=== PATIENT | female | born 1940 | race Caucasian/White ===

== ENCOUNTER 2024-11-08 14:55 | Outpatient (OUT) | payer MEDICARE, SELFPAY ==
--- OUTSIDE RECORDS SUMMARY | 2024-10-30 13:45 | XMS_ITS | Encounter Summary ---
Author Organization [facility] Address [address] [place] [address] Care Team Providers Care Haunted History Tour Guide Name Role Phone Mallory Briceño GENETICS NURSE Unavailable Justin Becerra MD Unavailable [phone] Unallocated, Noms Provider Primary Care Provi venecia Reason for Visit * Reason Comments Pain Encounter Details Date Type Department Care Team (Late st Contact Info) Description 10/30/2024 1:45 PM EDT Office Visit [facility] [address] [facility] [address] [place] [phone] Clint King PA [address] [place] [address] Left shoulder strain, initial encounter (Primary Dx) Social History Tobacco Use Types Packs/Day Years Used Date Smoking Tobacco: Former Cigarettes 1 74 0 02/22/1959 - 02/22/2005 Passive Smoke Exposure: Yes Smokeless Tobacco: Never Tobacco Cessation:Counseling Given: Not Answered Alcohol Use Standard Drinks/Week Comments Never 0 (1 standard drink = 0.6 oz pur e alcohol) Comments Unknown Sex and Gender Information Value Date Recorded Sex Assigned at Not on file Legal Sex Female 6:54 PM EDT Gender Identity Not on file Sexual Orientation Not on file documented as of this encounter Last Filed Vital Signs Vital Sign Reading Time Taken Comments Blood Pressure - - Pulse - - Temperature - - Respiratory Rate - - Oxygen Saturation - - Inhaled Oxygen Concentration - - Weight 56.2 kg (124 lb) 10/30/2024 1:56 PM EDT Height 149.9 cm (4' 11 ) 10/30/2024 1:56 PM EDT Body Mass Index 25.04 10/30/2024 1:56 PM EDT documented in this encounter Patient Instructions * Patient Instructions* NATIVIDAD Armendariz - 10/30/2024 1:45 PM EDT Caution on assisting patient with position change while at [facility] due to strain of the shoulder. Cold pack 20 minutes several times a day and before bedtime we will be helpful. Follow-up with Dr. Loco Pardo MD of [place] for status post Lt hip surgery as scheduled tomorrow and mention images completed of the Left shoulder in our office today. Tylenol for discomfort and follow up as needed with this office. documented in this encounter Progress Notes * NATIVIDAD Armendariz - 10/30/2024 1:45 PM EDT GENERAL HISTORY AND PHYSICAL: NAME: Alexsandra Ryoal : 1940 HISTORY OF PRESENT ILLNESS: Alexsandra Royal is an 83 y.o. female is here for orthopedic evaluation left shoulder pain and concerns of dislocation. She had fallen and was seen at [facility] and immediately was noted to have a left Hip/femur fracture. At the time there was no significant complaint of shoulder problems. Patient was transferred and cared for under the direction of Dr. Loco Pardo and received IM nail for her fracture care. She is here today with her she was brought here by transportation from [facility]. is upset because she was imaged while at the [facility] and the nurse said that the shoulder was dislocated. Images reviewed which were copied on a standard piece of paper which did not appear to demonstrate dislocation. She is here for repeat images and exam of the shoulder. Patient has an appointment with Dr. Pardo tomorrow in [place] for her hip. Patient has had some discomfort with being moved from [id number] due to the shoulder while in the [facility] which led to the evaluation and concerns of dislocation. She actually in the wheelchair today is able to remove her sling and lift her arm up above her head without any difficulty, prior to exam. PAST MEDICAL HISTORY: Past Medical History: Diagnosis Date Acromioclavicular separation ALS (amyotrophic lateral sclerosis) ([facility]) Ankle sprain Arterial atherosclerosis Arthritis COPD (chronic obstructive pulmonary disease) ([facility]) Coronary artery disease CTS (carpal tunnel syndrome) Dislocation, shoulder Fracture of hip ([facility]) Fracture, femur ([facility]) GERD (gastroesophageal reflux disease) Hyperlipidemia Hypertension Lumbosacral disc disease Myocardial infarction ([facility]) Neuropathy Numbness Occlusion and stenosis of bilateral carotid arteries Osteoporosis PAD (peripheral artery disease) Peripheral neuropathy Pulmonary hypertension ([facility]) PAST SURGICAL HISTORY: Past Surgical History: Procedure Laterality Date APPENDECTOMY 1940 CEREBRAL ANGIOGRAM COLONOSCOPY 11/25/2015 CT ANGIOGRAM NECK 04/13/2012 CT ANGIOGRAM NECK FEMUR FRACTURE SURGERY HYSTERECTOMY 1958 KNEE ARTHROPLASTY SOCIAL HISTORY: Social History Occupational History Not on file Tobacco Use Smoking status: Former Current packs/day: 0.00 Average packs/day: 1 pack/day for 74.0 years (76.5 ttl pk-yrs) Types: Cigarettes Start date: 02/22/1959 Quit date: 02/22/2005 Years since quittin.6 Passive exposure: Yes Smokeless tobacco: Never Substance and Sexual Activity Alcohol use: Never Drug use: Never Sexual activity: Not Currently Partners: Male control/protection: None ALLERGIES: No Known Allergies MEDICATIONS: Current Outpatient Medications Medication Instructions acetaminophen (TYLENOL) 500 mg, Every 6 hours PRN albuterol (2.5 MG/3ML) 0.083% nebulizer solution allopurinol (ZYLOPRIM) 300 mg, Daily RT amLODIPine (Norvasc) 5 MG tablet aspirin 81 MG EC tablet atorvastatin (Lipitor) 40 MG tablet bisacodyl (Dulcolax) 10 MG suppository Insert into the rectum bisacodyl (FLEET BISACODYL) 10 mg, Once Calcium Carbonate (CALCIUM 500 PO) Take by mouth DULoxetine (CYMBALTA) 30 mg, 2 times daily Fluticasone-Salmeterol 250-50 MCG/ACT aerosol powder Inhale Lidocaine 4 % patch Apply externally magnesium hydroxide (Milk of Magnesia) 400 MG/5ML suspension Nightly metoprolol succinate XL (Toprol-XL) 25 MG 24 hr tablet Take by mouth Do not crush or chew. oxybutynin (Ditropan) 5 MG tablet oxygen (O2) gas sennosides (Senokot) 8.6 MG tablet 1 tablet, Daily VITAMIN D PO Take by mouth Vitamin D, Ergocalciferol, 17445 units capsule Take by mouth REVIEW OF SYSTEMS: Review of Systems General: Denies appetite or significant weight change. Denies fever, chills or night sweats. Denies lightheadedness. ENT: Denies dry mouth, sore throat or swollen glands. Denies difficulty swallowing. Denies ear pain. Respiratory: Denies chest pain, SOB, cough or wheezing. Denies asthma or pneumonia symptoms. Cardiovascular: Denies CP or palpitations. No syncope or dyspnea on exertion. Gastrointestinal: Denies nausea or vomiting. Denies heartburn or abdominal pain. Denies diarrhea. Genitourinary: Denies frequent or painful urination. Musculoskeletal: See HPI for comments. Integumentary: Denies rash, lesion or skin infection. Neurologic: Denies dizziness, headache or seizure history. Vitals: Body mass index is 25.04 kg/m??. PHYSICAL EXAM: Physical Exam Patient can actively raise her left shoulder to 135 degrees forward flexion and hold it in this position. Passively we can extend beyond this without much discomfort. She has no ecchymosis about the shoulder no significant joint swelling. She is able to abduct it to 80 degrees and has internal rotation to the lower lumbar region and external rotation from neutral of 65 degrees. She has some mild subacromial crepitus and some tenderness with cross-arm activity and global weakness of the rotator cuff. Her deltoid is intact with good sensation. XR shoulder 2+ views left Imaging Result: AP Grashey and scapular Y-view as well as axillary taken in the office today demonstrating no acutefracture or evidence of dislocation. AC joint arthritic findings noted. Orders Placed This Encounter Procedures XR shoulder 2+ views left Reason for exam:: pain XR shoulder 2+ views left Imaging Result: AP Grashey and scapular Y-view as well as axillary taken in the office today demonstrating no acute fracture or evidence of dislocation. AC joint arthritic findings noted. ASSESSMENT: Left shoulder strain, initial encounter PLAN: Caution on assisting patient with position change while at [facility] due to strain of the shoulder. Cold pack 20 minutes several times a day and before bedtime we will be helpful. Follow-up with Dr. Loco Pardo MD of [place] for status post Lt hip surgery as scheduled tomorrow and mention images completed of the Left shoulder in our office today. Tylenol for discomfort and follow up as needed with this office. NATIVIDAD Armendariz documented in this encounter Plan of Treatment Not on file documented as of this encounter Procedures Procedure Name Priority Date/Time Associated Diagnosis Comments XR SHOULDER 2+ VIEWS LEFT Routine 10/30/2024 2:34 PM EDT Left shoulder strain, initial encounter documented in this encounter Results * XR shoulder 2+ views left (10/30/2024 2:34 PM EDT) Anatomical Region Laterality Modality Upper Extremities, Shoulder Left Radi ographic Imaging Narrative 10/30/2024 2:59 PM EDT Imaging Result: AP Grashey and scapular Y-view as well as axillary taken in the office today demonstrating no acute fracture or evidence of dislocation. AC joint arthritic findings noted. us Clint HENSON IMG XR PROCEDURES Final Result documented in this encounter Visit Diagnoses Diagnosis Left shoulder strain, initial encounter- Primary documented in this encounter Care Teams Haunted History Tour Guide Relationship Specialty Start Date End Date Unallocated, Noms Provider, [address] [place] [id number] PCP - General Family Medicine 10/30/24 Mallory Briceño NP Nurse Practitioner Family Medicine 12/17/23 Justin Becerra MD Referring Physician Neurology 02/01/24 documented as of this encounter
--- OUTSIDE RECORDS SUMMARY | 2024-10-30 14:35 | XMS_ITS | Encounter Summary ---
Author Organization [facility] Address [address] [place] [address] Care Team Providers Care Junior Bookkeeper Name Role Phone KeyannaNunuMallory Gadiel AQUARIUM SPECIALIST Unavailable [phone] Justin Becerra MD Unavailable [phone] Unallocated, Noms Provider Primary Care Provi venecia Encounter Details Date Type Department Care Team (Late st Contact Info) Description 10/30/2024 2:35 PM EDT Ancillary Procedure [facility] [address] [facility] [place] [phone] Social History Tobacco Use Types Packs/Day Years Used Date Smoking Tobacco: Former Cigarettes 1 74 0 02/22/1959 - 02/22/2005 Passive Smoke Exposure: Yes Smokeless Tobacco: Never Alcohol Use Standard Drinks/Week Comments Never 0 (1 standard drink = 0.6 oz pur e alcohol) Comments Unknown Sex and Gender Information Value Date Recorded Sex Assigned at Not on file Legal Sex Female 6:54 PM EDT Gender Identity Not on file Sexual Orientation Not on file documented as of this encounter Plan of Treatment Not on [...] of dislocation. AC joint arthritic findings noted. Clint HENSON IMG XR PROCEDURES Final Result documented in this encounter Visit Diagnoses Not on filedocumented in this encounter Care Teams Junior Bookkeeper Relationship Specialty Start Date End Date Unallocated, Noms MD [address] [place] [address] PCP - General Family Medicine 10/30/24 Mallory Briceño NP Nurse Practitioner Family Medicine 12/17/23 Justin Becerra MD Referring Physician Neurology 02/01/24 documented as of this encounter
--- OUTSIDE RECORDS SUMMARY | 2024-10-31 09:40 | XMS_ITS | Encounter Summary ---
Author Organization [facility] Address [address] [place] [address] Care Team Providers Care Cuff Setter Lockstitch Name Role Phone Nunu Briceño CNP Primary Care Provider [phone] Reason for Referral * Therapy (Routine) - Pending Review Specialty Diagnoses / Procedures Referred By Contcarmita t Referred To Contact Physical Therapy Diagnoses Traumatic closed trochanteric fracture of femur with minimal displacement, left, initial encounter ([facility]) Procedures OR OFFICE/OUTPATIENT [facility] 60 MINUTES Loco Pardo MD [address] [place] [address] Phone: tel: fax: Referral ID Status Reason Start Date Expiration Date Visits Requested Visits Authorized [id number] Pending Review Evaluation and Treat 10/31/2024 10/31/2025 1 1 Reason for Visit * Reason Comments Follow-up Pain Post-op Encounter Details Date Type Department Care Team (Late st Contact Info) Description 10/31/2024 9:40 AM EDT Office Visit [facility] [address] [place] [address] [place] [phone] Loco Pardo MD [address] [place] [address] Closed displaced intertrochanteric fracture of left femur with routine healing, subsequent encounter (Primary Dx) Social History Tobacco Use Types Packs/Day Years Used Date Smoking Tobacco: Former Cigarettes Smokeless Tobacco: Never Tobacco Cessation:Counseling Given: Not Answered Alcohol Use Standard Drinks/Week Comments Never 0 (1 standard drink = 0.6 oz pur e alcohol) [facility] Utilities Answer Date Recorded In the past 12 months has th e electric, gas, oil, or water company threatened to shut off services in your home? No 10/13/2024 Humiliation, Afraid, Rape, and Kick questionnair e Answer Date Recorded Within the last year, have y ou been afraid of your partner or ex-partner? No 10/13/2024 Within the last year, have y ou been humiliated or emotionally abused in other ways by your partner or ex-partner? No Within the last year, have y ou been kicked, hit, slapped, or otherwise physically hurt by your partner or ex-partner? No 10/13/2024 Within the last year, have y ou been raped or forced to have any kind of sexual activity by your partner or ex-partner? No 10/13/2024 Social Connection and Isolat ion Panel [NHANES] Answer Date Recorded In a typical week, how many times do you talk on the phone with family, friends, or neighbors? More than three times a week 10/13/2024 How often do you get togethe r with friends or relatives? More than three times a week 10/13/2024 How often do you attend [facility] or gnosticism services? More than 4 times per year 10/13/2024 Do you belong to any clubs o r organizations such as zoroastrian groups, unions, fraternal or athletic groups, or school groups? No 10/13/2024 How often do you attend meet ings of the clubs or organizations you belong to? Never 10/13/2024 Are you , , di vorced, , never , or living with a partner? 10/13/2024 AUDIT-C Answer Date Recorded Q1: How often do you have a drink containing alcohol? Never 10/13/2024 Q2: How many drinks containi ng alcohol do you have on a typical day when you are drinking? Patient does not drink Q3: How often do you have si x or more drinks on one occasion? Never 10/13/2024 Overall Financial Resource Strain (CARDIA) Answe r Date Recorded How hard is it for you to pa y for the very basics like food, housing, medical care, and heating? Not hard at all 10/13/2024 PHQ-2 Answer Date Recorded Patient Health Questionnaire-2 Score 0 10/31/2024 [facility] Occupat ional Health - Occupational Stress Questionnaire Answer Date Recorded Do you feel stress - tense, restless, nervous, or anxious, or unable to sleep at night because your mind is troubled all the time - these days? Not at all 10/13/2024 Transportation Answer Date Recorded In the past 12 months, has l ack of transportation kept you from medical appointments or from getting medications? No 09/23 In the past 12 months, has l ack of transportation kept you from meetings, work, or from getting things needed for daily living? No 10/13/2024 Housing Stability Vital Sign Answer Dalton e Recorded In the last 12 months, was t here a time when you were not able to pay the mortgage or rent on time? No 10/13/2024 In the past 12 months, how m any times have you moved where you were living? 0 10/13/2024 At any time in the past 12 m [facility], were you homeless or living in a halfway (including now)? No 10/13/2024 Hunger Vital Sign Answer Date Recorded Within the past 12 months, y ou worried that your food would run out before you got the money to buy more. Never true 10/14/19 25 Within the past 12 months, t he food you bought just didn't last and you didn't have money to get more. Never true 10/13/2024 Comments Unknown Sex and Gender Information Value Date Recorded Sex Assigned at Female 10/13/2024 3:24 AM EDT Legal Sex Female 10:14 PM EDT Gender Identity Female 10/13/2024 3:24 AM EDT Sexual Orientation Choose not to disclose 2024 3:24 AM EDT documented as of this encounter Last Filed Vital Signs Vital Sign Reading Time Taken Comments Blood Pressure - - Pulse - - Temperature - - Respiratory Rate - - Oxygen Saturation - - Inhaled Oxygen Concentration - - Weight 49 kg (108 lb) 10/31/2024 9:56 AM EDT Height 157.5 cm (5' 2 ) 10/31/2024 9:56 AM EDT Body Mass Index 19.75 10/31/2024 9:56 AM EDT documented in this encounter Functional Status documented as of this encounter Progress Notes * Loco Pardo MD - 10/31/2024 9:40 AM EDT Images from the original note were not included. Orthopedic Surgery 10/13/2024 Insertion, Intramedullary Zachary, Femur, Antegrade - Left Alexsandra Royal comes in for a post-operative visit after having a left Hip fracture done on 10/13/2024. Today she is doing well and has no unexpected complaints. she has not done much in the way of therapy because there was concern that she might have broken, or dislocated, her left shoulder. She said that the therapist would not begin ambulating her until they got an okay from us today. Physical Exam: The incision site is healing well. There is no erythema, drainage or signs of infection. Tenderness is mild and localized to the surgical site. Sensation is present to light touch. Range of motion is appropriate for this time. Assessment: Alexsandra Royal is a 83 y.o. year old female with a left hip fracture treated with intramedullary nail fixation Plan: her gigi were removed today in the clinic. I looked back at old x-rays that we had from her hospitalization and there is no evidence of any injury to the left shoulder as far as a fracture or dislocation. There is a good subacromial space so I do not think she has any type of massive rotator cuff injury. An x-ray was repeated by her primary care doctor yesterday and I can see the report that says no bony abnormalities in the left shoulder. We will give her a prescription for therapy stating she can do activities as tolerated with the left arm and to work on progressive ambulation. I would like to see her back in 4 weeks with a repeat x-ray of the left hip. documented in this encounter Miscellaneous Notes * Telephone Encounter - Celeste Holder MA - 10/31/2024 9:40 AM EDT Sent to [facility] documented in this encounter Plan of Treatment Upcoming Encounters Date Type Department Care Team (Late st Contact Info) Description 12/05/2024 10:20 AM EDT Follow-Up [facility] [address] [place] [address] [place] [phone] Loco Pardo MD [address] [place] [address] 12/13/2024 1:00 PM EDT Office Visit [facility] [address] [facility] [place] [phone] Arsalan Ramos MD [address] [place] [address] Scheduled Referrals Name Type Priority Associated Diagnoses Orde r Schedule Ambulatory referral to Physical Therapy Outpatient Referral Routine Closed displaced intertrochanteric fracture of left femur with routine healing, subsequent encounter Expected: 10/31/2024 (Approximate), Expires: 04/30/2025 documented as of this encounter Visit Diagnoses Diagnosis Closed displaced intertrochanteric fracture of left femur with routine healing, subsequent encounter- Primary documented in this encounter Care Teams Cuff Setter Lockstitch Relationship Specialty Start Date End Date Nunu Briceño CNP [address] [place] [address] PCP - General 10/16/24 documented as of this encounter
--- OUTSIDE RECORDS SUMMARY | 2024-11-08 15:04 | XMS_ITS | Clinical Summary ---
Author Organization [employer] tem Address [id number] [address] [place] [address] Care Team Providers Care Long Chain Beamer Name Role Phone Loly Quintana Primary Care Provid er Social History Tobacco Use Types Packs/Day Years Used Date Smoking Tobacco: Never Assessed Childcare Answer Date Recorded Childcare Unknown 08/01/2018 Employment Answer Date Recorded Employment Unknown 08/01/2018 Purpose - Life Answer Date Recorded Purpose and direction in life Unknown Comments Unknown Sex and Gender Information Value Date Recorded Sex Assigned at Not on file Legal Sex Female 3:06 PM EDT Gender Identity Not on file Sexual Orientation Not on file Plan of Treatment Not on file Medical Devices Not on file Insurance [facility] MEDICARE Care Teams Long Chain Beamer Relationship Specialty Start Date End Date Loly Quintana APRN-CNP [address] [phone] PCP - General Family Medicine 06/10/18
--- OUTSIDE RECORDS SUMMARY | 2024-11-08 15:04 | XMS_ITS | Clinical Summary ---
Author Organization [facility] Address [address] [place] [id number] Care Team Providers Care Airport Skilled Maintenance Supervisor Name Role Phone Unavailable Primary Care Provider Unavailabl e Allergies No known active allergies Medications gabapentin 300 mg capsule Take 300 mg by mouth three times daily. Active hydrALAZINE 25 mg tablet Take 25 mg by mouth three times daily. Active loratadine 10 mg tablet Take 10 mg by mouth once daily. Active omeprazole 20 mg capsule Take 20 mg by mouth once daily. Active simvastatin 40 mg tablet Take 40 mg by mouth daily at bedtime. Active metFORMIN ER 750 mg 24 hr tablet Take 750 mg by mouth daily with breakfast. Active Cholecalciferol , Vitamin D3, (VITAMIN D-3) 2,000 unit Tab Take by mouth once daily. Active VITAMIN B COMPLEX (SUPER B COMPLEX ORAL) Take by mouth once daily. Active Aspirin 81 mg Tab Take 81 mg by mouth once daily. Active alendronate 70 mg tablet Take 70 mg by mouth once each week. Active nitroglycerin sublingual 0.4 mg SL tablet Dissolve 0.4 mg under the tongue every 5 minutes as needed. Active acetaminophen-H YDROcodone 5-500 mg tablet Take 1 tablet by mouth every 6 hours as needed for Pain. 70 tablet 0 05/07/2012 Active Active Problems Problem Noted Date Diagnosed Date Cerebral aneurysm, nonruptured 04/06/2013 COPD (chronic obstructive pulmonary disease) HTN (hypertension) 05/08/2012 Aneurysm 05/06/2012 Social History Tobacco Use Types Packs/Day Years Used Date Smoking Tobacco: Former Cigarettes Q uit: 02/22/2010 Smokeless Tobacco: Never Comments:Quit in 2010. Alcohol Use Standard Drinks/Week Comments No 0 (1 standard drink = 0.6 oz pur e alcohol) Comments No Sex and Gender Information Value Date Recorded Sex Assigned at Not on file Legal Sex Female 10:41 AM EST Gender Identity Not on file Sexual Orientation Not on file Last Filed Vital Signs Vital Sign Reading Time Taken Comments Blood Pressure 119/68 05/09/2012 11:00 AM EDT Pulse 100 05/09/2012 11:00 AM EDT Temperature 37.2 C (99 F) 05/09/2012 8:00 AM EDT Respiratory Rate 20 05/09/2012 11:00 AM EDT Oxygen Saturation 96% 05/09/2012 11:00 AM EDT Inhaled Oxygen Concentration - - Weight 64.4 kg (142 lb) 05/06/2012 5:48 AM EDT Height 157.5 cm (5' 2 ) 05/06/2012 5:48 AM EDT Body Mass Index 25.97 05/06/2012 5:48 AM EDT Plan of Treatment Health Maintenance Due Date Last Done Comments Anxiety Screening 1958 Depression Screening 1958 DTaP,Tdap,Td Vaccine (1 - Tdap) 1957 Pneumococcal Vaccine: 50+ (1 of 1 - PCV) 1988 Shingrix Vaccine (1 of 2) 1988 Bone Density Screening 11/29/2003 RSV Vaccine (1 - 1-dose 75+ series) 2013 Diabetes Screening 05/10/2015 05/09/2012, 0 05/08/2012, 05/07/2012, Additional history exists Advance Directive Discussion 02/23/2024 Influenza Vaccine (#1) 2024 Procedures Procedure Name Priority Date/Time Associated Diagnosis Comments BASIC METABOLIC PANEL Routine 05/09/2012 4:55 AM EDT from Last 3 Months or Most Recently Relevant to Health Maintenance Results * (ABNORMAL) BASIC METABOLIC PNL (05/09/2012 4:55 AM EDT) Glucose 82 65 - 100 mg/dL [facility] BUN 9 8 - 25 mg/dL [facility] Creatinine 0.66(L) 0.70 - 1.40 mg/dL [facility] Sodium 141 132 - 148 mmol/L [facility] Potassium 4.4 3.5 - 5.0 mmol/L [facility] Chloride 105 98 - 110 mmol/L [facility] CO2 30 23 - 32 mmol/L [facility] Anion Gap 6 0 - 15 mmol/L [facility] Calcium 8.4(L) 8.5 - 10.5 mg/dL [facility] Blood specimen (specimen) BLOOD SPECIMEN / Unknown 05/09/2012 4:55 AM EDT 05/09/2012 4:56 AM EDT Avila Smalls MD LABORATORY Final Result [facility] [address] [place] [address] from Last 3 Months or Most Recently Relevant to Health Maintenance [place] [address] [place] [address] MEDICARE
--- OUTSIDE RECORDS SUMMARY | 2024-11-08 15:04 | XMS_ITS | Encounter Summary ---
Author Organization [facility] Address [address] [facility] [place] [address] Care Team Providers Care Slip Cover Maker Name Role Phone Mallory Briceño ASSISTANT TODDLER TEACHER Unavailable [phone] Justin Becerra MD Unavailable [phone] Encounter Details Date Type Department Care Team (Latest Contact Info) Description 10/29/2024 Travel Social History Tobacco Use Types Packs/Day Years Used Date Smoking Tobacco: Never Cigarettes 0.8 51 - 02/22/2005 Passive Smoke Exposure: Yes Smokeless [...] on file documented as of this encounter Visit Diagnoses Not on filedocumented in this encounter Care Teams Slip Cover Maker Relationship Specialty Start Date End Date Mallory Briceño NP Nurse Practitioner Family Medicine 12/17/23 Justin Becerra MD Referring Physician Neurology 02/01/24 documented as of this encounter
--- OUTSIDE RECORDS SUMMARY | 2024-11-08 15:04 | XMS_ITS | Encounter Summary ---
Author Organization [facility] Address [address] [place] [address] Care Team Providers Care Hops Farmworker Name Role Phone RomeroMallory hinton Gadiel UNDER CUTTER Unavailable [phone] Justin Becerra MD Unavailable [phone] Unallocated, Noms Provider Primary Care Provi venecia Encounter Details Date Type Department Care Team (Late st Contact Info) Description 10/30/2024 Bamboo flowsheet [facility] [address] [place] [phone] Clint King PA [address] [place] [address] Social History Tobacco Use Types Packs/Day Years [...] on filedocumented in this encounter Care Teams Hops Farmworker Relationship Specialty Start Date End Date Unallocated, Noms Provider, [address] [place] [address] PCP - General Family Medicine 10/30/24 Mallory Briceño NP Nurse Practitioner Family Medicine 12/17/23 Justin Becerra MD Referring Physician Neurology 02/01/24 documented as of this encounter
--- OUTSIDE RECORDS SUMMARY | 2024-11-08 15:04 | XMS_ITS | Encounter Summary ---
Author Organization Stat tem Address [id number] [address] [place] [address] Care Team Providers Care Corn Grinder Name Role Phone Loly Quintana Primary Care Provid er Reason for Visit * Reason Onset Date Comments Results 03/04/2024 Encounter Details Date Type Department Care Team (Late st Contact Info) Description 03/04/2024 Telephone [facility] [address] [place] [id number] Anupama Meza Results Social History Tobacco Use Types Packs/Day Years [...] on file documented as of this encounter Miscellaneous Notes * Telephone Encounter - Anupama Meza - 03/04/2024 6:47 PM EST Contract ppcrd [facility] [phone] ext [phone] [id number] Giancarlo re needs echo reading Secure chat more documented in this encounter Plan of Treatment Not on file documented as of this encounter Visit Diagnoses Not on filedocumented in this encounter Care Teams Corn Grinder Relationship Specialty Start Date End Date Loly Quintana APRN-CNP [address] [place] [address] PCP - General Family Medicine 06/10/18 documented as of this encounter
--- OUTSIDE RECORDS SUMMARY | 2024-11-08 15:04 | XMS_ITS | Clinical Summary ---
Author Organization [facility] Address [address] [place] [address] Care Team Providers Care Highway Technician Name Role Phone Mallory Briceño Gadiel CAT SCANNER OPERATOR Unavailable [phone] Justin Becerra MD Unavailable [phone] Unallocated, Noms Provider Primary Care Provi venecia Allergies No known active allergies Medications oxybutynin (Ditropan) 5 MG tablet 10/13/19 24 Active aspirin 81 MG EC tablet 04/19/19 24 Active atorvastatin (Lipitor) 40 MG tablet 04/19/19 24 Active albuterol (2.5 MG/3ML) 0.083% nebulizer solution 04/19/19 24 Active amLODIPine (Norvasc) 5 MG tablet 04/19/19 24 Active oxygen (O2) gas 10/12/19 24 Active Lidocaine 4 % patch Apply topically Active acetaminophen (Tylenol) 500 MG tablet Take 500 mg by mouth every 6 (six) hours if needed 10/20/19 25 025 Active allopurinol (Zyloprim) 300 MG tablet Take 300 mg by mouth in the morning. Active Calcium Carbonate (CALCIUM 500 PO) Take by mouth Active bisacodyl (Dulcolax) 10 MG suppository Insert into the rectum Active DULoxetine (Cymbalta) [address] capsule Take 30 mg by mouth in the morning and 30 mg before bedtime. Do not crush or chew. Active Vitamin D, Ergocalciferol, 35824 units capsule Take by mouth Active bisacodyl (Fleet Bisacodyl) 10 MG/30ML enema Insert 10 mg into the rectum 1 (one) time Active Fluticasone-Dmitry meterol 250-50 MCG/ACT aerosol powder Inhale Active metoprolol succinate XL (Toprol-XL) 25 MG 24 hr tablet Take by mouth Do not crush or chew. Active magnesium hydroxide (Milk of Magnesia) 400 MG/5ML suspension Take by mouth at bedtime Active sennosides (Senokot) 8.6 MG tablet Take 1 tablet by mouth Daily Active VITAMIN D PO Take by mouth Active hydrALAZINE (Apresoline) 50 MG tablet .COMPLEX 06/16/19 24 025 Discontinued( erapy completed) lisinopril 40 MG tablet Daily 04/19/19 025 Discontinued( erapy completed) alendronate (Fosamax) 70 MG tablet Take 70 mg by mouth every 7 (seven) days Take in the morning with a full glass of water, on an empty stomach, and do not take anything else by mouth or lie down for the next 30 min. 025 Discontinued pantoprazole (ProtoNix) 40 MG EC tablet Take 40 mg by mouth in the morning. Take before meals. Do not crush, chew, or split.. 025 Discontinued( erapy completed) gabapentin (Neurontin) 100 MG capsuleIndicati ons:Polyneuropa thy Take 1 capsule (100 mg) by mouth in the morning and 1 capsule (100 mg) before bedtime. 60 capsule 2 05/05/19 025 Discontinued( erapy completed) Active Problems Problem Noted Date Diagnosed Date Callus of foot 12/16/2023 COPD (chronic obstructive pulmonary disease) Atherosclerosis 12/16/2023 History of right-sided carotid endarterectomy Myocardial infarction 12/16/2023 Neuropathy 12/16/2023 Occlusion and stenosis of bilateral carotid nancy rose 12/16/2023 Osteoporosis 12/16/2023 Peripheral artery disease 12/16/2023 Pulmonary hypertension 12/16/2023 Carotid artery occlusion without infarction 07/23 Mixed hyperlipidemia 08/01/2008 Chronic ischemic heart disease 08/01/2008 Primary hypertension 08/01/2008 Encounters Date Type Department Care Team Description 10/30/2024 2:35 PM EDT Ancillary Procedure [facility] [address] [place] [address] 10/30/2024 1:45 PM EDT Office Visit [facility] [address] [place] [address] Clint King PA Left shoulder strain, initial encounter (Primary Dx) 10/30/2024 Bamboo flowsheet [facility] [address] [place] [address] Clint King PA 10/30/2024 Travel 10/29/2024 Travel from Last 3 Months Family History Medical History Relation Name Comments Hodgkin's lymphoma Father Tuberculosis Mother Diabetes Mother's Sister Rajwinder malloy Relation Name Status Comments Father Mother Mother's Sister Rajwinder mlaloy Social History Tobacco Use Types Packs/Day Years [...] Sign Reading Time Taken Comments Blood Pressure 120/70 05/04/2024 9:22 AM EDT Pulse - - Temperature - - Respiratory Rate - - Oxygen Saturation - - Inhaled Oxygen Concentration - - Weight 56.2 kg (124 lb) 10/30/2024 1:56 PM EDT Height 149.9 cm (4' 11 ) 10/30/2024 1:56 PM EDT Body Mass Index 25.04 10/30/2024 1:56 PM EDT Plan of Treatment Health Maintenance Due Date Last Done Comments Medicare Annual Wellness (AWV) 1940 Influenza Vaccine (#1) 2024 , 12/15/2022, 11/23/2022, Additional history exists Pneumococcal Vaccine: 65+ Years Completed 04/06/2016, 11/20/2011, 11/20/2011 Procedures Procedure Name Priority Date/Time Associated Diagnosis Comments XR SHOULDER 2+ VIEWS LEFT Routine 10/30/2024 2:34 PM EDT Left shoulder strain, initial encounter from Last 3 Months Results * XR shoulder 2+ views left (10/30/2024 2:34 PM EDT) Anatomical Region Laterality Modality Upper Extremities, Shoulder Left Radi ographic Imaging Narrative 10/30/2024 2:59 PM EDT Imaging Result: AP Grashey and scapular Y-view as well as axillary taken in the office today demonstrating no acute fracture or evidence of dislocation. AC joint arthritic findings noted. Clint HENSON IMKarina XR PROCEDURES Final Result from Last 3 Months Insurance [facility] MEDICARE ADVANTAGE Care Teams Highway Technician Relationship Specialty Start Date End Date Unallocated, Noms MD Ginger [address] [place], [place] [id number] PCP - General Family Medicine 10/30/24 Mallory Briceño CAT SCANNER OPERATOR Nurse Practitioner Family Medicine 12/17/23 Justin Becerra MD Referring Physician Neurology 02/01/24
--- OUTSIDE RECORDS SUMMARY | 2024-11-08 15:04 | XMS_ITS | Encounter Summary ---
Author Organization [facility] Address [address] [place] [address] Care Team Providers Care Hide Examiner Name Role Phone Nunu Briceño CNP Primary Care Provider [phone] Encounter Details Date Type Department Care Team (Late st Contact Info) Description 10/24/2024 Telephone [facility] [address] [place] [address] [place] [address] Angela Anderson MA Social History Tobacco Use Types Packs/Day Years Used Date Smoking Tobacco: Former Cigarettes Smokeless Tobacco: Never Alcohol Use Standard Drinks/Week Comments Never 0 (1 standard drink = 0.6 oz pur e alcohol) [facility] Utilities Answer Date Recorded In the past 12 months has [facility] [employer], gas, oil, or water [employer] threatened to shut off services in your [...] week 10/13/2024 How often do you attend chur ch or buddhism services? More than 4 times per year 10/13/2024 Do you belong to any clubs o r organizations such as shinto groups, unions, fraternal or athletic groups, or [...] and heating? Not hard at all 10/13/2024 [facility] of Occupat ional Health - Occupational Stress [...] any time in the past 12 m [facility], were you homeless or living in a chcf (including now)? No 10/13/2024 Hunger Vital Sign [...] AM EDT documented as of this encounter Plan of Treatment Upcoming Encounters Date Type Department Care Team (Late st Contact Info) Description 12/05/2024 10:20 AM EDT Follow-Up [facility] [address] [place] [address] [place] [phone] Loco aPrdo MD [address] [place] [address] 12/13/2024 1:00 PM EDT Office Visit [facility] [place] [address] [place] [address] Arsalan Ramos MD [address] [place] [address] documented as of this encounter Visit Diagnoses Not on filedocumented in this encounter Care Teams Hide Examiner Relationship Specialty Start Date End Date Nunu Briceño CNP [address] [place] [address] PCP - General 10/16/24 documented as of this encounter
--- OUTSIDE RECORDS SUMMARY | 2024-11-08 15:04 | XMS_ITS | Clinical Summary ---
Author Organization [facility] Address [address] [place] [address] Phone Care Team Providers Care Application Support Engineer Name Role Phone Loly Quintana Primary Care Provid er Social History Tobacco Use Types Packs/Day Years Used Date Smoking Tobacco: Never Assessed Comments Unknown Sex and Gender Information Value Date Recorded Sex Assigned at Not on file Legal Sex Female 4:01 PM EST Gender Identity Not on file Sexual Orientation Not on file Plan of Treatment Not on file Care Teams Application Support Engineer Relationship Specialty Start Date End Date Loly Quintana APRN-CNP [address] [facility] [place] [address] PCP - General 06/17/18
--- OUTSIDE RECORDS SUMMARY | 2024-11-08 15:04 | XMS_ITS | Encounter Summary ---
Author Organization [facility] Address [address] [place] [address] Care Team Providers Care Moss Bleacher Name Role Phone Nunu Briceño CNP Primary Care Provider [phone] Encounter Details Date Type Department Care Team (Late st Contact Info) Description 11/08/2024 Orders Only [facility] [address] [place] [address] Ritika Arana MA NSTEMI (non-ST elevated myocardial infarction) (CMS/HCC) (Primary Dx) Social History Tobacco Use Types Packs/Day Years Used Date Smoking Tobacco: Former Cigarettes Smokeless Tobacco: Never Alcohol Use Standard Drinks/Week Comments Never 0 (1 standard drink = 0.6 oz pur e alcohol) [facility] Utilities Answer Date Recorded In the past 12 months has e [employer], gas, oil, or water [employer] threatened to shut off services in your [...] often do you attend chur ch or baptism services? More than 4 times per year 10/13/2024 Do you belong to any clubs o r organizations such as adventist groups, unions, fraternal or athletic groups, or [...] Recorded Patient Health Questionnaire-2 Score 0 10/31/2024 [facility] Occupat ional [facility] - Occupational Stress Questionnaire Answer Date Recorded [...] any time in the past 12 m [facility], were you homeless or living in a long term (including now)? No 10/13/2024 Hunger Vital Sign [...] Info) Description 12/05/2024 10:20 AM EDT Follow-Up [facility] [address] [place] [address] [place] [phone] Loco Pardo MD [address] [place] [address] 12/13/2024 1:00 PM EDT Office Visit [facility] [place] [address] [place] [address] Arsalan Ramos MD [address] [place] [address] Scheduled Orders Name Type Priority Associated Diagnoses Orde r Schedule B-type natriuretic peptide Lab Routine NSTEMI (non-ST elevated myocardial infarction) ([facility]/HCC) Expected: 11/08/2024 (Approximate), Expires: 11/08/2025 High Sensitivity Troponin I Lab Routine NSTEMI (non-ST elevated myocardial infarction) (CMS/HCC) Expected: 11/08/2024 (Approximate), Expires: 11/08/2025 documented as of this encounter Visit Diagnoses Diagnosis NSTEMI (non-ST elevated myocardial infarction) ([facility])- Primary Acute myocardial infarction, subendocardial infarction, episode of care unspecified documented in this encounter Care Teams Moss Bleacher Relationship Specialty Start Date End Date Nunu Briceño CNP [address] [place] [address] PCP - General 10/16/24 documented as of this encounter
--- OUTSIDE RECORDS SUMMARY | 2024-11-08 15:05 | XMS_ITS | Clinical Summary ---
Author Organization [facility] Address [address] [place] [address] Care Team Providers [facility] Name Role Phone Nunu Briceño CNP Primary Care Provider [phone] Allergies No known active allergies Medications amLODIPine (Norvasc) 5 mg tablet Take 5 mg by mouth in the morning. Active oxyBUTYnin (Ditropan) 5 mg tablet Take 5 mg by mouth two times daily. Active atorvastatin (Lipitor) 40 mg tablet Take 40 mg by mouth in the morning. Active allopurinol (Zyloprim) 300 mg tablet Take 300 mg by mouth in the morning. Active aspirin 81 mg chewable tabletIndicati ons:Closed left hip fracture, initial encounter (CMS/[facility]) Chew 1 tablet (81 mg) two times daily for 96 doses. 5 12/07/19 25 Active acetaminophen (Tylenol) 500 mg tabletIndicati ons:Closed left hip fracture, initial encounter (CMS/[facility]) Take 1 tablet (500 mg) by mouth every 6 (six) hours if needed for mild pain (1-3 pain score). 5 11/19/19 25 Active sennosides-doc usate sodium (Magaly-Colace) 8.6-50 mg tabletIndicati ons:Closed left hip fracture, initial encounter (CMS/[facility]) Take 1 tablet by mouth two times daily. 5 11/19/19 25 Active metoprolol succinate XL (Toprol-XL) 25 mg 24 hr tabletIndicati ons:Closed left hip fracture, initial encounter (CMS/[facility]) Take 1 tablet (25 mg) by mouth in the morning. Do not crush or chew. 5 11/20/19 25 Active ergocalciferol (Vitamin D-2) 1.25 MG (56617 Units) capsuleIndicat ions:Closed left hip fracture, initial encounter ([facility]) Take 1 capsule (50,000 Units) by mouth 1 (one) time per week. 5 11/21/19 25 Active cholecalcifero l (Vitamin D-3) 50 MCG (2000 UT) tabletIndicati ons:Closed left hip fracture, initial encounter ([facility]) Take 1 tablet (50 mcg) by mouth with breakfast. 5 11/20/19 25 Active calcium 500 mg calcium (1,250 mg) tabletIndicati ons:Closed left hip fracture, initial encounter ([facility]) Take 1 tablet (500 mg) by mouth with breakfast, with lunch, and with evening meal. 5 11/19/19 25 Active ipratropium-al buteroL (Combivent Respimat) 20-100 mcg/actuation inhaler Inhale 1 puff every 6 (six) hours. 11/09/19 Discontinu ed(Therapy completed) budesonide-for moteroL (Symbicort) 160-4.5 mcg/actuation inhaler Inhale 2 puffs in the morning and at bedtime. Rinse mouth with water after use to reduce aftertaste and incidence of candidiasis. Do not swallow. 11/09/19 Discontinu ed(Therapy completed) DULoxetine (Cymbalta) [address] capsule Take 30 mg by mouth in the morning. Do not crush or chew. 11/09/19 Discontinu ed(Therapy completed) calcium carb/vit D3/minerals (CALCIUM-VITAM IN D ORAL) Take 50 mcg by mouth in the morning. Take 2 daily 11/09/19 Discontinu ed(Therapy completed) lisinopril 10 mg tablet Take 10 mg by mouth in the morning. 10/21/19 Discontinu ed(Stop Taking at Discharge) aspirin 81 mg EC tablet Take 81 mg by mouth in the morning. 10/21/19 Discontinu ed(Stop Taking at Discharge) Active Problems Problem Noted Date Diagnosed Date Traumatic closed trochanteri c fracture of femur with minimal displacement, left, initial encounter 10/13/2024 Assessment & Plan (10/13/2024 6:54 AM EDT): Patient seen for preop evaluation for anticipated hip repair imaging studies EKG labs reviewed patient level of activity is around 4 METS at home without having any exertional symptoms including chest pain palpitation fatigue dizziness syncope EKG showed possible junctional rhythm patient is asymptomatic benefits of surgery outweighs the risk which is moderate we will agreed to proceed for the surgery recommend early mobilization DVT prophylaxis avoid imbalance and IV fluids avoid AV salena or rate limiting medications continue telemetry with need to have outpatient follow-up with cardiology COPD bronchodilators as needed incentive spirometry early mobilization as mentioned above Based on review of chart in [facility] patient had high MMA level and low vitamin B12 would recommend IV B12 supplement Bilateral carotid artery occlusive disease would recommend postop once stable start aspirin and statin History of coronary artery disease as above Thank you for the consult Ycvern received have oh Orders from past 72 hours: Case Request Operating Room: INSERTION, INTRAMEDULLARY CORTES, FEMUR, RETROGRADE; Standing Mixed simple and mucopurulent chronic bronchitis 10/13/2024 Primary hypertension 10/13/2024 Carotid artery stenosis 10/13/2024 COPD (chronic obstructive pulmonary disease) Closed left hip fracture, initial encounter 09/23 Atherosclerosis 12/16/2023 Callus of foot 12/16/2023 History of right-sided carotid endarterectomy Neuropathy 12/16/2023 Occlusion and stenosis of bilateral carotid nancy rose 12/16/2023 Osteoporosis 12/16/2023 Peripheral artery disease 12/16/2023 Pulmonary hypertension 12/16/2023 Cerebral aneurysm, nonruptured 04/06/2013 Aneurysm 05/06/2012 Carotid artery occlusion without infarction 07/23 Chronic ischemic heart disease 08/01/2008 Mixed hyperlipidemia 08/01/2008 Encounters Date Type Department Care Team Description 11/08/2024 2:00 PM EDT Office Visit [address] [address] Arsalan Ramos MD NSTEMI (non-ST elevated myocardial infarction) (CMS/HCC) (Primary Dx); Chronic ischemic heart disease 11/08/2024 Orders Only [address] [place] [id number] Ritika Arana MA NSTEMI (non-ST elevated myocardial infarction) (CMS/HCC) (Primary Dx) 10/31/2024 9:40 AM EDT Office Visit [address] [place] [address] Loco Pardo MD Closed displaced intertrochanteric fracture of left femur with routine healing, subsequent encounter (Primary Dx) 10/24/[address] [place] [address] Angela Anderson MA 10/13/2024 3:40 PM EDT - 10/13/2024 6:18 PM EDT Surgery [facility] Main Operating Room [address] [place] [address] Loco Pardo MD INSERTION, INTRAMEDULLARY CORTES, FEMUR, ANTEGRADE 10/13/2024 3:20 PM EDT Anesthesia Event [facility] Main Operating Room [address] [place] [address] Srinivas Collins MD Clemes, Raymond, MD 10/13/2024 12:39 AM EDT - 10/20/2024 8:11 AM EDT Hospital Encounter [facility] 5ABCD Surgery Stepdown [address] [place] [address] Justin Bennett MD Oweis, Thomas D, MD Closed left hip fracture, initial encounter (CMS/[facility]) (Primary Dx); Traumatic closed trochanteric fracture of femur with minimal displacement, left, initial encounter ([facility]); Pain; Chest pain Discharge Disposition: Jail Facility (03) 10/13/2024 Travel from Last 3 Months Family History Relation Name Status Comments Father Mother Social History Tobacco Use Types Packs/Day Years Used Date Smoking Tobacco: Former Cigarettes Smokeless Tobacco: Never Tobacco Cessation:Counseling Given: Not Answered Alcohol Use Standard Drinks/Week Comments Never 0 (1 standard drink = 0.6 oz pur e alcohol) [facility] Utilities Answer Date Recorded In the past 12 months has th e electric, gas, oil, or water [employer] threatened to shut off services in your [...] 10/13/2024 How often do you attend chur or taoism services? More than 4 times per year 10/13/2024 Do you belong to any clubs o r organizations such as nondenominational groups, unions, fraternal or athletic groups, or [...] Recorded Patient Health Questionnaire-2 Score 0 10/31/2024 [facility] of Occupat ional Health - Occupational Stress [...] any time in the past 12 m ont, were you homeless or living in a assisted (including now)? No 10/13/2024 Hunger Vital Sign [...] not to disclose 2024 3:24 AM EDT Last Filed Vital Signs Vital Sign Reading Time Taken Comments Blood Pressure 112/71 11/08/2024 2:16 PM EDT Pulse 77 11/08/2024 2:16 PM EDT Temperature 36.6 C (97.9 F) 10/20/2024 7:53 AM EDT Respiratory Rate 15 10/20/2024 7:53 AM EDT Oxygen Saturation 90% 11/08/2024 2:1 6 PM EDT 3 lpm o2 via n/c Inhaled Oxygen Concentration - - Weight 48.5 kg (107 lb) 11/08/2024 2:16 PM EDT Height 149.9 cm (4' 11 ) 11/08/2024 2:1 6 PM EDT Body Mass Index 21.61 11/08/2024 2:16 PM EDT Plan of Treatment Upcoming Encounters Date Type Department Care Team (Late st Contact Info) Description 12/05/2024 10:20 AM EDT Follow-Up [facility] [address] [place] [address] [place] [phone] Loco Pardo MD [address] [place] [address] 12/13/2024 1:00 PM EDT Office Visit [facility] at [facility] [address] [place] [address] Arsalan Ramos MD [address] [place] [address] Health Maintenance Due Date Last Done Comments Medicare Annual Wellness (AWV) 1940 Pneumococcal Vaccine: 50+ Years (2 of 2 - PPSV23, PCV20, or PCV21) 06/01/2016 04/06/2016, 11/20/2011 COVID-19 Vaccine ( season) 2024 12/14/2023, 01/19/2023, 11/21/2021, Additional history exists Influenza Vaccine (#1) 2024 , 12/15/2022, 11/23/2022, Additional history exists Depression Screening 10/31/2025 10/31/2024 Fall Risk Screening 10/31/2025 10/31/2024 Adult Tetanus 02/14/2029 02/14/2019 Zoster Vaccines Completed 04/08/2023, 01/06/2023 HIB Vaccines Aged Out No longer eligi ble based on patient's age to complete this topic HPV Vaccines Aged Out No longer eligi ble based on patient's age to complete this topic IPV Vaccines Aged Out No longer eligi ble based on patient's age to complete this topic Meningococcal B Vaccine Aged Out No l onger eligible based on patient's age to complete this topic Meningococcal Vaccine Aged Out No chelsie freddie eligible based on patient's age to complete this topic Rotavirus Vaccines Aged Out No longer eligible based on patient's age to complete this topic Medical Devices Implanted Type Area Merchandise Execution Leader Device Identifier Shelf Expiration Date Model / Serial / Lot Gamma 4 Long Nail Left Implanted:Qty: 1 on 10/13/2024 by Loco Pardo MD at [facility] Nail Left: Hip [employer] [id number] 12/23/2031 [id number] S / / [id number] Gamma 4 Lag Screw Implanted:Qty: 1 on 10/13/2024 by Loco Pardo MD at [facility] Screw Left: Hip [employer] 04/21/2034 1324-1545 S / / [id number] Screw,Bone,Loc parker,T2,5x47.5 mm - [id number] Implanted:Qty: 1 on 10/13/2024 by Loco Pardo MD at [facility] Screw Left: Hip [employer] [id number] 02/21/2034 [id number] S / / [id number] Screw,Bone,Loc parker,T2,5x47.5 mm - [id number] Implanted:Qty: 1 on 10/13/2024 by Loco Pardo MD at [facility] Screw Left: Hip [employer] [id number] 04/22/2031 2105-2500 S / / [id number] Procedures Procedure Name Priority Date/Time Associated Diagnosis Comments BASIC METABOLIC PANEL Pending Discharge 10/20/2024 4:32 AM EDT PHOSPHORUS Pending Discharge 10/20/2024 4:32 AM EDT MAGNESIUM Pending Discharge 10/20/2024 4:32 AM EDT CBC Pending Discharge 10/20/2024 4:32 AM EDT XR CHEST 1 VIEW Routine 10/19/2024 6:53 AM EDT BASIC METABOLIC PANEL Pending Discharge 10/19/2024 6:11 AM EDT PHOSPHORUS Pending Discharge 10/19/2024 6:11 AM EDT MAGNESIUM Pending Discharge 10/19/2024 6:11 AM EDT CBC Pending Discharge 10/19/2024 6:11 AM EDT ECG 12-LEAD Routine 10/18/2024 12:19 PM EDT XR CHEST 1 VIEW Routine 10/18/2024 7:16 AM EDT BASIC METABOLIC PANEL Routine 10/18/2024 5:31 AM EDT PHOSPHORUS Routine 10/18/2024 5:31 AM EDT MAGNESIUM Routine 10/18/2024 5:31 AM EDT CBC Routine 10/18/2024 5:31 AM EDT MAGNESIUM Pending Discharge 10/17/2024 3:49 PM EDT BASIC METABOLIC PANEL Pending Discharge 10/17/2024 3:49 PM EDT XR CHEST 1 VIEW Routine 10/17/2024 7:00 AM EDT BASIC METABOLIC PANEL Pending Discharge 10/17/2024 6:07 AM EDT PHOSPHORUS Pending Discharge 10/17/2024 6:07 AM EDT MAGNESIUM Pending Discharge 10/17/2024 6:07 AM EDT CBC Pending Discharge 10/17/2024 6:07 AM EDT BASIC METABOLIC PANEL Pending Discharge 10/17/2024 12:06 AM EDT BASIC METABOLIC PANEL Pending Discharge 10/16/2024 4:17 PM EDT LIMITED ECHOCARDIOGRAM (TTE) W/ LTD DOPPLER AND COLOR FLOW Routine 10/16/2024 2:53 PM EDT HIGH SENSITIVITY TROPONIN I Pending Discharge 10/16/2024 12:12 PM EDT XR CHEST 1 VIEW STAT 10/16/2024 9:48 AM EDT ECG 12-LEAD STAT 10/16/2024 9:35 AM EDT Chest pain POCT GLUCOSE METER UNSOLICITED RESULTS Routine 10/16/2024 9:10 AM EDT HIGH SENSITIVITY TROPONIN I Add-On 10/16/2024 5:16 AM EDT PHOSPHORUS Pending Discharge 10/16/2024 5:16 AM EDT MAGNESIUM Pending Discharge 10/16/2024 5:16 AM EDT BASIC METABOLIC PANEL Pending Discharge 10/16/2024 5:16 AM EDT CBC Pending Discharge 10/16/2024 5:16 AM EDT HIGH SENSITIVITY TROPONIN I STAT Add-on 10/15/2024 11:05 AM EDT LACTIC ACID WITH 4 HOUR REFLEX Routine 10/15/2024 11:05 AM EDT PHOSPHORUS Routine 10/15/2024 11:05 AM EDT MAGNESIUM Routine 10/15/2024 11:05 AM EDT BASIC METABOLIC PANEL Routine 10/15/2024 11:05 AM EDT CBC Routine 10/15/2024 11:05 AM EDT PHOSPHORUS Routine 10/15/2024 6:37 AM EDT MAGNESIUM Routine 10/15/2024 6:37 AM EDT BASIC METABOLIC PANEL Routine 10/15/2024 6:37 AM EDT CBC Routine 10/15/2024 6:37 AM EDT TRANSFUSE RED BLOOD CELLS STAT 10/15/2024 12:26 AM EDT ECG 12-LEAD STAT 10/15/2024 12:11 AM EDT HEMOGLOBIN AND HEMATOCRIT, BLOOD Routine 10/14/2024 8:21 PM EDT TRANSFUSE RED BLOOD CELLS STAT 10/14/2024 4:41 PM EDT POCT GLUCOSE METER UNSOLICITED RESULTS Routine 10/14/2024 3:54 PM EDT CALCIUM, IONIZED Routine 10/14/2024 1:00 PM EDT BASIC METABOLIC PANEL Routine 10/14/2024 11:58 AM EDT HEMOGLOBIN AND HEMATOCRIT, BLOOD Routine 10/14/2024 11:58 AM EDT POCT GLUCOSE METER UNSOLICITED RESULTS Routine 10/14/2024 11:57 AM EDT POCT GLUCOSE METER UNSOLICITED RESULTS Routine 10/14/2024 11:36 AM EDT POCT GLUCOSE METER UNSOLICITED RESULTS Routine 10/14/2024 7:31 AM EDT PHOSPHORUS Routine 10/14/2024 6:13 AM EDT MAGNESIUM Routine 10/14/2024 6:13 AM EDT CBC Routine 10/14/2024 6:13 AM EDT BASIC METABOLIC PANEL Routine 10/14/2024 6:13 AM EDT POCT GLUCOSE METER UNSOLICITED RESULTS Routine 10/13/2024 11:30 PM EDT XR FEMUR 2+ VW LEFT STAT 10/13/2024 6 :07 PM EDT FL LESS THAN 1 HOUR INTRAOPERATIVE Routine 10/13/2024 5:24 PM EDT Pain UT AN ELECTIVE ENDOTRACHEAL AIRWAY Routine 10/13/2024 3:34 PM EDT INSERTION, INTRAMEDULLARY CORTES, FEMUR, RETROGRADE 10/13/2024 3:22 PM EDT Closed left hip fracture, initial encounter (CMS/[facility]) Traumatic closed trochanteric fracture of femur with minimal displacement, left, initial encounter (CMS/[facility]) POCT GLUCOSE METER UNSOLICITED RESULTS Routine 10/13/2024 11:27 AM EDT XR CHEST 1 VIEW Routine 10/13/2024 6:47 AM EDT XR CLAVICLE LEFT Routine 10/13/2024 6:47 AM EDT VITAMIN D 25 HYDROXY Add-On 10/13/2024 6:18 AM EDT PHOSPHORUS Routine 10/13/2024 6:18 AM EDT MAGNESIUM Routine 10/13/2024 6:18 AM EDT CBC Routine 10/13/2024 6:18 AM EDT BASIC METABOLIC PANEL Routine 10/13/2024 6:18 AM EDT POCT GLUCOSE METER UNSOLICITED RESULTS Routine 10/13/2024 6:01 AM EDT POCT GLUCOSE METER UNSOLICITED RESULTS Routine 10/13/2024 5:23 AM EDT XR FEMUR 2+ VW LEFT STAT 10/13/2024 4 :32 AM EDT MRSA/MSSA DNA NASAL Routine 10/13/2024 4 :[address] ABDOMEN PELVIS WO IV CONTRAST Routine 10/13/2024 4:[address] HEAD WO IV CONTRAST STAT 10/13/2024 4:[address] CERVICAL SPINE WO IV CONTRAST STAT 10/13/2024 4:26 AM EDT ECG 12-LEAD STAT 10/13/2024 2:51 AM EDT HIGH SENSITIVITY TROPONIN I STAT 10/13/2024 2:34 AM EDT PREPARE RBC STAT 10/13/2024 1:53 AM EDT PREPARE RBC STAT 10/13/2024 1:53 AM EDT TOXICOLOGY PANEL URINE STAT 10/13/2024 1:21 AM EDT URINALYSIS WITH MICROSCOPIC STAT 10/13/2024 1:21 AM EDT XR TRANSFER OF OUTSIDE FILMS Routine 10/13/2024 1:20 AM EDT CBC WITH AUTO DIFFERENTIAL STAT 10/13/2024 1:20 AM EDT HIGH SENSITIVITY TROPONIN I STAT 10/13/2024 1:20 AM EDT HEPATIC FUNCTION PANEL STAT 10/13/2024 1:20 AM EDT LIPASE STAT 10/13/2024 1:20 AM EDT LACTIC ACID, PLASMA STAT 10/13/2024 1 :20 AM EDT ETHANOL STAT 10/13/2024 1:20 AM EDT APTT STAT 10/13/2024 1:20 AM EDT PROTIME-INR STAT 10/13/2024 1:20 AM EDT BASIC METABOLIC PANEL STAT 10/13/2024 1:20 AM EDT CBC AND DIFFERENTIAL STAT 10/13/2024 1:20 AM EDT TYPE AND SCREEN STAT 10/13/2024 1:20 AM EDT from Last 3 Months Results * (ABNORMAL) CBC (10/20/2024 4:32 AM EDT) Only the most recent of9 resultswithin the time period is included. Auto WBC 5.05 4.00 - 10.60 10*3/uL 10/20/2024 5:35 AM EDT [facility] ([facility]) RBC 2.81(L) 3.80 - 5.00 10*6/uL 10/20/2024 5:35 AM EDT [facility] ([facility]) Hemoglobin 8.4(L) 12.0 - 15.0 g/dL 10/20/2024 5:35 AM EDT [facility] ([facility]) Hematocrit 26.4(L) 36.0 - 45.0 % 10/20/2024 5:35 AM EDT [facility] ([facility]) MCV 94.0 82.0 - 98.0 fL 10/20/2024 5:35 AM EDT [facility] ([facility]) MCH 29.9 27.0 - 33.0 pg 10/20/2024 5:35 AM EDT [facility] ([facility]) MCHC 31.8(L) 32.0 - 35.0 g/dL 10/20/2024 5:35 AM EDT [facility] ([facility]) RDW 13.3 11.5 - 15.0 % 10/20/2024 5:35 AM EDT [facility] ([facility]) Platelets 152 150 - 400 10*3/uL 10/20/2024 5:35 AM EDT [facility] ([facility]) Blood Venous blood specimen / Unknown Venipuncture / Unknown 10/20/2024 4:32 AM EDT 10/20/2024 5:21 AM EDT Maciej Fujian [employer] MD-C LAB BLOOD ORDERABLES Final R esult [facility]) [address] [place] [address] [id number] * Phosphorus (10/20/2024 4:32 AM EDT) Only the most recent of9 resultswithin the time period is included. Phosphorus 3.6 2.5 - 5.0 mg/dL 10/20/2024 5:44 AM EDT [facility]) Blood Venous blood specimen / Unknown Venipuncture / Unknown 10/20/2024 4:32 AM EDT 10/20/2024 5:21 AM EDT Maciej Fujian [employer] MD-C LAB BLOOD ORDERABLES Final R esult [facility]) [address] [place] [address] * Magnesium (10/20/2024 4:32 AM EDT) Only the most recent of10 resultswithin the time period is included. Magnesium 1.9 1.9 - 2.7 mg/dL 10/20/2024 5:44 AM EDT [facility]) Blood Venous blood specimen / Unknown Venipuncture / Unknown 10/20/2024 4:32 AM EDT 10/20/2024 5:21 AM EDT Maciej Graves PA-C LAB BLOOD ORDERABLES Final R esult [facility] ([facility]) [address] [place] [address] * (ABNORMAL) Basic metabolic panel (10/20/2024 4:32 AM EDT) Only the most recent of14 resultswithin the time period is included. Sodium 137 136 - 145 mmol/L 10/20/2024 5:46 AM EDT [facility] ([facility]) Potassium 4.2 3.5 - 5.1 mmol/L 10/20/2024 5:46 AM EDT [facility] ([facility]) Chloride 94(L) 98 - 107 mmol/L 10/20/2024 5:46 AM EDT [facility] ([facility]) CO2 41(HH) 21 - 31 mmol/L 10/20/2024 5:46 AM EDT [facility] ([facility]) BUN 31(H) 7 - 25 mg/dL 10/20/2024 5:46 AM EDT [facility] ([facility]) Creatinine 0.76 0.60 - 1.20 mg/dL 10/20/2024 5:46 AM EDT [facility] ([facility]) Glucose 105(H) 70 - 100 mg/dL 10/20/2024 5:46 AM EDT [facility] ([facility]) Calcium 8.9 8.6 - 10.3 mg/dL 10/20/2024 5:46 AM EDT [facility] ([facility]) Anion Gap 6(L) 7 - 20 mmol/L 10/20/2024 5:46 AM EDT [facility] ([facility]) eGFR 76.7 >60.0 mL/min/1. 73m*2 10/20/2024 5:46 AM EDT [facility] ([facility]) Comment:The [facility] s estimated glomerular filtration rate (eGFR) will no longer include consideration of race in its calculation. The [employer] s eGFR Task Force developed new recommendations for the estimation of the glomerular filtration rate in the [place] They recommend immediate implementation of the new equation refit without the race variable in all laboratories because the calculation does not include race. In addition to not including race in the calculation and reporting, it included diversity in its development, and has acceptable performance characteristics and potential consequences that do not disproportionately affect any one group of individuals. BUN/Creatinine Ratio 40.8 09/23 5:46 AM EDT [facility] ([facility]) Blood Venous blood specimen / Unknown Venipuncture / Unknown 10/20/2024 4:32 AM EDT 10/20/2024 5:21 AM EDT us Ibis Polanco PA-C LAB BLOOD ORDERABLES Final Res ult [facility] ([facility]) [address] [place] [address] * XR chest 1 view (10/19/2024 6:53 AM EDT) Only the most recent of5 resultswithin the time period is included. Anatomical Region Laterality Modality Chest Computed Radiogr aphy 10/19/2024 7:02 AM EDT Impressions 10/19/2024 7:03 AM EDT No significant interval change. Left pleural effusion and ongoing pleural parenchymal process. No pneumothorax. No change in appearance the aortic knob or trachea. Cardiac silhouette is enlarged unchanged. Vasculature is stable Electronically signed: Regi Jewell. Narrative 10/19/2024 7:03 AM EDT XR CHEST 1 VIEW 10/19/2024 6:31 AM CLINICAL INDICATIONS: Difficulty breathing. Acute kidney injury. Heart block. Chemical fall COMPARISON: 10/18/2024 FINDINGS: AP portable upright image was obtained Procedure Note Regi Jewell MD - 10/19/2024 XR CHEST 1 VIEW 10/19/2024 6:31 AM CLINICAL INDICATIONS: Difficulty breathing. Acute kidney injury. Heartblock. Chemical fall COMPARISON: 10/18/2024 FINDINGS: AP portable upright image was obtained IMPRESSION: No significant interval change. Left pleural effusion and ongoingpleural parenchymal process. No pneumothorax. No change in appearance the aorticknob or trachea. Cardiac silhouette is enlarged unchanged. Vasculature is stable Electronically signed: Regi Jewell. us Ibis Polanco PA-C IMG XR PROCEDURES Final Result * ECG 12 lead (10/18/2024 12:19 PM EDT) Only the most recent of4 resultswithin the time period is included. Ventricular Rate 89 BPM GE MUSE Atrial Rate 89 BPM GE MUSE UT Interval 270 ms GE MUSE QRS DURATION 80 ms GE MUSE QT Interval 350 ms GE MUSE QTC CALCULATION(BAZE TT) 425 ms GE MUSE P Blairs 87 degrees GE MUSE R-Blairs -14 degrees GE MUSE T Wave Blairs 43 degrees GE MUSE 10/18/2024 12:1 6 PM EDT 10/18/2024 3:05 PM EDT Impressions GE MUSE - 10/18/2024 3:05 PM EDT Sinus rhythm with 1st degree A-V block with Premature atrial complexes Otherwise normal ECG When compared with ECG of 16-OCT-2024 09:21, Previous ECG has undetermined rhythm, needs review Confirmed by Mike KNAPP SAMER J. ([id number]) on 10/18/2024 3:05:00 PM Narrative Procedure Note Akin Knapp MD - 10/18/2024 IMPRESSION: Sinus rhythm with 1st degree A-V block with Premature atrial complexes Otherwise normal ECG When compared with ECG of 16-OCT-2024 09:21, Previous ECG has undetermined rhythm, needs review Confirmed by Mike KNAPP SAMER J. ([id number]) on 10/18/2024 3:05:00 PM us Dilia Sena CNP ECG ORDERABLES Final Result GE MUSE * LIMITED ECHOCARDIOGRAM (TTE) W/ LTD DOPPLER AND COLOR FLOW (10/16/2024 2:53 PM EDT) Anatomical Region Laterality Modality Other 10/16/2024 2:42 PM EDT Narrative 10/16/2024 4:01 PM EDT 1 1 [facility] Heart [facility] [address] [id number] [phone] (fax) Echocardiogram-[facility] Name: NAA ROYAL Study Date: 10/16/2024 02:42 PM B/P: 131 mmHg/63 mmHg HR: 97 bpm Date of : 1940 Location: [facility] Height: 59 in. Age: 83 year(s) Patient Room: [facility] Weight: 126 lb. Gender: Female Patient Status: InPt BSA: 1.52 m2 Indication: Atrioventricular block Examination: Limited Echo/Limited Doppler, Color flow imaging Image Quality: Good Patient Consent: Procedure explained to patient Conclusions Left Ventricle: The left ventricle is normal size. Global left ventricular systolic function is normal. The EF is 65 % visually. Left ventricular wall thickness is mildly increased. No regional wall motion abnormality. Unable to assess diastolic dysfunction. Concentric left ventricular hypertrophy. Right Ventricle: The right ventricle appears normal in size. Right ventricular systolic function appears normal. Doppler studies suggest moderately elevated right sided pressures (elevated pulmonary pressure). Left Atrium: The left atrium appears enlarged. Mitral Valve: Mild mitral regurgitation. Aortic Valve: Moderate aortic valve regurgitation. Measurements Left Ventricle Label Value Normal Value LVEF visual 65 % LVDd, 2D 4.07 cm (3.9cm - 5.3cm) LVDs, 2D 2.65 cm (2.1cm - 4cm) IVSd, 2D 1.17 cm (0.6cm - 1.1cm) LVPWd, 2D 1.14 cm (0.6cm - 0.9cm) LV Mass, 2D ASE 160.57 g LV Mass Index, 2D ASE 105.6 g/m?? (44g/m?? - 88.4g/m??) RWT, MM 0.56 (0 - 0.42) LVSVI, 2D 30.9 ml/m2 Tricuspid Valve Label Value Normal Value RA Pressure 3 mmHg RVSP 51 mmHg TR Vmax 3.47 m/s Valvular Assessment LVOT 0.7 - 1.1 m/sec Aortic Valve 1.0 - 1.7 m/sec Mitral Valve 0.6 - 1.3 m/sec Tricuspid Valve 0.3 - 0.7 m/sec Pulmonic Valve 0.6 - 0.9 m/sec Regurgitation Mod Mild Mild Stenosis No No Findings Left Ventricle: The left ventricle is normal size. Global left ventricular systolic function is normal. The EF is 65 % visually. Left ventricular wall thickness is mildly increased. No regional wall motion abnormality. Unable to assess diastolic dysfunction. Concentric left ventricular hypertrophy. Right Ventricle: The right ventricle appears normal in size. Right ventricular systolic function appears normal. Doppler studies suggest moderately elevated right sided pressures (elevated pulmonary pressure). Left Atrium: The left atrium appears enlarged. Right Atrium: The right atrium appears normal in size. Mitral Valve: Mitral valve appears normal. Mild mitral regurgitation. Aortic Valve: Aortic valve appears normal. Moderate aortic valve regurgitation. No aortic valve stenosis. The aortic valve is trileaflet. Tricuspid Valve: Tricuspid valve appears normal. Mild tricuspid regurgitation. No tricuspid valve stenosis. Great Vessels: IVC: The IVC is normal in size. Pericardium: No pericardial effusion. Procedure Staff Reading Group: [facility] Referring Physician: ANITHA JEFFERS Eyelet Operator: CLIFFORD Lopez Ordering Physician: MECHELLE MARQUEZ Procedure Note Akin Knapp MD - 10/16/2024 1 1 [facility] Heart Station [address] [id number] [phone] (fax) Echocardiogram-[facility] Name: NAA ROYAL Study Date: 10/16/2024 02:42 PM B/P: 131 mmHg/63 mmHg HR: 97 bpm Date of : 1940 Location: [facility] Height: 59 in. Age: 83 year(s) Patient Room: 515 Weight: 126 lb. Gender: Female Patient Status: InPt BSA: 1.52 m2 Indication: Atrioventricular block Examination: Limited Echo/Limited Doppler, Color flow imaging Image Quality: Good Patient Consent: Procedure explained to patient Conclusions Left Ventricle: The left ventricle is normal size. Global left ventricular systolic function is normal. The EF is 65 % visually. Left ventricular wall thickness is mildly increased. No regional wall motion abnormality. Unable to assess diastolic dysfunction. Concentric left ventricular hypertrophy. Right Ventricle: The right ventricle appears normal in size. Right ventricular systolic function appears normal. Doppler studies suggest moderately elevated right sided pressures (elevated pulmonary pressure). Left Atrium: The left atrium appears enlarged. Mitral Valve: Mild mitral regurgitation. Aortic Valve: Moderate aortic valve regurgitation. Measurements Left Ventricle Label Value Normal Value LVEF visual 65 % LVDd, 2D 4.07 cm (3.9cm - 5.3cm) LVDs, 2D 2.65 cm (2.1cm - 4cm) IVSd, 2D 1.17 cm (0.6cm - 1.1cm) LVPWd, 2D 1.14 cm (0.6cm - 0.9cm) LV Mass, 2D ASE 160.57 g LV Mass Index, 2D ASE 105.6 g/m?? (44g/m?? - 88.4g/m??) RWT, MM 0.56 (0 - 0.42) LVSVI, 2D 30.9 ml/m2 Tricuspid Valve Label Value Normal Value RA Pressure 3 mmHg RVSP 51 mmHg TR Vmax 3.47 m/s Valvular Assessment LVOT 0.7 - 1.1 m/sec Aortic Valve 1.0 - 1.7 m/sec Mitral Valve 0.6 - 1.3 m/sec Tricuspid Valve 0.3 - 0.7 m/sec Pulmonic Valve 0.6 - 0.9 m/sec Regurgitation Mod Mild Mild Stenosis No No Findings Left Ventricle: The left ventricle is normal size. Global left ventricular systolic function is normal. The EF is 65 % visually. Left ventricular wall thickness is mildly increased. No regional wall motion abnormality. Unable to assess diastolic dysfunction. Concentric left ventricular hypertrophy. Right Ventricle: The right ventricle appears normal in size. Right ventricular systolic function appears normal. Doppler studies suggest moderately elevated right sided pressures (elevated pulmonary pressure). Left Atrium: The left atrium appears enlarged. Right Atrium: The right atrium appears normal in size. Mitral Valve: Mitral valve appears normal. Mild mitral regurgitation. Aortic Valve: Aortic valve appears normal. Moderate aortic valve regurgitation. No aortic valve stenosis. The aortic valve is trileaflet. Tricuspid Valve: Tricuspid valve appears normal. Mild tricuspid regurgitation. No tricuspid valve stenosis. Great Vessels: IVC: The IVC is normal in size. Pericardium: No pericardial effusion. Procedure Staff Reading Group: [facility] Referring Physician: ANITHA JEFFERS Eyelet Operator: Eileen Buchanan [facility] Ordering Physician: MECHELLE MARQUEZ us Mechelle Marquez PA-C CV ECHO PROCEDURES Final Result * (ABNORMAL) HS Troponin I (H+1) (10/16/2024 12:12 PM EDT) Only the most recent of5 resultswithin the time period is included. [facility] High Sensitivity Troponin I 287(HH) <15 ng/L 10/16/2024 1:02 PM EDT [facility] ([facility]) Blood Venous blood specimen / Unknown Venipuncture / Unknown 10/16/2024 12:12 PM EDT 10/16/2024 12:24 PM EDT Anitha Jeffers MD LAB BLOOD ORDERABLES Final Res ult Performing Organization Address [facility]/ZIP Co de Phone Number [facility]) [address] [place] [address] * (ABNORMAL) POCT glucose meter (10/16/2024 9:10 AM EDT) Only the most recent of9 resultswithin the time period is included. [facility] Glucose POC 112(H) 70 - 105 mg/dL 10/16/2024 9:21 AM EDT [facility]) Comment:sbelcad Blood Capillary blood specimen / Unknown 10/16/2024 9:10 AM EDT 10/16/2024 9:21 AM EDT Narrative [facility]) - 10/16/2024 9:21 AM EDT Waived Testing in the ED is performed under the ED CLIA certificate #[id number]. Anitha Jeffers MD LAB BLOOD ORDERABLES Final Res ult Performing Organization Address City/[facility]/ZIP Co de Phone Number [facility]) [address] [place] [address] * Lactic acid with 4 hour reflex (10/15/2024 11:05 AM EDT) [facility] Lactate 1.1 0.5 - 2.2 mmol/L 10/15/2024 11:54 AM EDT [facility] ([facility]) Blood Venous blood specimen / Unknown Venipuncture / Unknown 10/15/2024 11:05 AM EDT 10/15/2024 11:07 AM EDT Maciej Graves PA-C LAB BLOOD ORDERABLES Final R esult [facility] ([facility]) [address] [place] [address] * Transfuse RBC (10/15/2024 3:13 AM EDT) Only the most recent of2 resultswithin the time period is included. Jerald Hernandez BLOOD TRANSFUSION ORDERABLES Fin al Result * (ABNORMAL) Hemoglobin and hematocrit, blood (10/14/2024 8:21 PM EDT) Only the most recent of2 resultswithin the time period is included. Hemoglobin 7.5(L) 12.0 - 15.0 g/dL 10/14/2024 8:50 PM EDT [facility] ([facility]) Hematocrit 22.7(L) 36.0 - 45.0 % 10/14/2024 8:50 PM EDT [facility] ([facility]) Blood Venous blood specimen / Unknown Venipuncture / Unknown 10/14/2024 8:21 PM EDT 10/14/2024 8:37 PM EDT Anitha Jeffers MD LAB BLOOD ORDERABLES Final Res ult [facility] ([facility]) [address], [place] [id number] * Calcium, ionized (10/14/2024 1:00 PM EDT) Calcium, Ion 1.16 1.15 - 1.33 mmol/L 10/14/2024 1:24 PM EDT [facility] RESPIRATORY [facility]ERAP[facility] Blood Venous blood specimen / Unknown Venipuncture / Unknown 10/14/2024 1:00 PM EDT 10/14/2024 1:15 PM EDT us Maciej Graves PA-C LAB BLOOD ORDERABLES Final R esult [facility] RESPIRATORY [facility]ERAP[facility] [address] [place] [address], [place] * XR femur left 2+ views (10/13/2024 6:07 PM EDT) Only the most recent of2 resultswithin the time period is included. Anatomical Region Laterality Modality Lower Extremities, Femur Left Compute d Radiography 10/13/2024 6:28 PM EDT Impressions 10/13/2024 6:30 PM EDT FINDINGS/IMPRESSION: 1. Satisfactory alignment of the principal fracture fragments. No evidence of hardware failure/complication. 2. The lesser trochanter is distracted, superiorly translated, and mildly rotated. 3. Postoperative changes in the soft tissues. Vascular calcifications. Electronically signed: Sarwat [place]. Narrative 10/13/2024 6:30 PM EDT XR FEMUR 2+ VW LEFT 10/13/2024 5:50 PM CLINICAL INDICATIONS: Fracture. Pain. Postoperative evaluation. COMPARISON: 10/13/2024 Procedure Note Sarwat [place] MD - 10/13/2024 XR FEMUR 2+ VW LEFT 10/13/2024 5:50 PM CLINICAL INDICATIONS: Fracture. Pain. Postoperative evaluation. COMPARISON: 10/13/2024 IMPRESSION: FINDINGS/IMPRESSION: 1.Satisfactory alignment of the principal fracture fragments. Noevidence of hardware failure/complication. 2.The lesser trochanter is distracted, superiorly translated, andmildly rotated. 3.Postoperative changes in the soft tissues. Vascular calcifications. Electronically signed: Sarwat [place]. Loco Pardo MD IMG XR PROCEDURES Final Result * FL LESS THAN 1 HOUR INTRAOPERATIVE (10/13/2024 5:24 PM EDT) Anatomical Region Laterality Modality X-Ray Angiograph y 10/13/2024 7:21 PM EDT Impressions 10/13/2024 7:23 PM EDT Status post ORIF left femur. Refer to operative report. Electronically signed: Sarwat [place]. Narrative 10/13/2024 7:23 PM EDT FL IN OR HISTORY: Fracture. Pain. COMPARISON: Same day radiographs of the left femur FINDINGS: Fluoroscopy time: 108 seconds Dose: 15.26 mGy Images: 16 Intraoperative fluoroscopic images demonstrate internal fixation of known left subtrochanteric fracture. Procedure Note Sarwat [place] MD - 10/13/2024 [place] IN OR HISTORY: Fracture. Pain. COMPARISON: Same day radiographs of the left femur FINDINGS: Fluoroscopy time: 108 seconds Dose: 15.26 mGy Images: 16 Intraoperative fluoroscopic images demonstrate internal fixation of knownleft subtrochanteric fracture. IMPRESSION: Status post ORIF left femur. Refer to operative report. Electronically signed: Sarwat [place]. Loco Pardo MD IMG FLUOROSCOPY PROCEDURES Final Result * UT AN ELECTIVE ENDOTRACHEAL AIRWAY (10/13/2024 3:34 PM EDT) Narrative Srinivas Collins MD - 10/13/2024 3:34 PM EDT Srinivas Collins MD 10/14/2024 2:44 AM Airway Date/Time: 10/13/2024 3:34 PM Reason: elective Airway not difficult General Information and Staff Patient location during procedure: OR Anesthesiologist: Srinivas Collins MD Resident/PLATE STACKER HAND/CAA: Pooja Don MD Performed: resident/PLATE STACKER HAND/CAA and anesthesiologist Patient Condition Indications for airway management: anesthesia Patient position: sniffing Planned trial extubation Sedation level: deep Final Airway Details Preoxygenated: yes Final airway type: endotracheal airway Successful airway: ETT Cuffed: yes Successful intubation technique: video laryngoscopy Adjuncts used in placement: intubating stylet Endotracheal tube insertion site: oral Blade: Chauhan Blade size: #3 ETT size (mm): 7.0 Cormack-Lehane Classification: grade IIa - partial view of glottis Placement verified by: chest auscultation and capnometry Measured from: lips ETT to lips (cm): 22 Number of attempts at approach: 1 Number of other approaches attempted: 0 Fish Patton MD ANESTHESIA ORDERABLES Final Result * XR clavicle left (10/13/2024 6:47 AM EDT) Anatomical Region Laterality Modality Body, Clavicle Left Computed Radiogr aphy 10/13/2024 7:05 AM EDT Impressions 10/13/2024 7:08 AM EDT No definite clavicular fracture on limited assessment. Dedicated CT imaging of the sternoclavicular region may be acquired for complete assessment. Electronically signed: Manish Hopkins. Narrative 10/13/2024 7:08 AM EDT XR CLAVICLE LEFT 10/13/2024 6:15 AM CLINICAL INDICATIONS: Preop evaluation. Fall. Shoulder pain. COMPARISON: None FINDINGS: 2 views the clavicle were obtained. The distal clavicle appears within normal limits with mild hypertrophic changes at the AC joint. Acromioclavicular alignment is anatomic Shoulder evaluation is limited with no gross glenohumeral malalignment or focal injury. The medial clavicles/clavicular head is difficult to assess. No gross fracture is evident. Articular surfaces are as. Procedure Note Manish Hopkins MD - 10/13/2024 XR CLAVICLE LEFT 10/13/2024 6:15 AM CLINICAL INDICATIONS: Preop evaluation. Fall. Shoulder pain. COMPARISON: None FINDINGS: 2 views the clavicle were obtained. The distal clavicle appears withinnormal limits with mild hypertrophic changes at the AC joint. Acromioclavicular alignment is anatomic Shoulder evaluation is limited with no gross glenohumeral malalignment orfocal injury. The medial clavicles/clavicular head is difficult to assess. No grossfracture is evident. Articular surfaces are as. IMPRESSION: No definite clavicular fracture on limited assessment. Dedicated CTimaging of the sternoclavicular region may be acquired for complete assessment. Electronically signed: Manish Hopkins. Ann Marie Hernandez PA-C IMG XR PROCEDURES Final Resu lt * Vitamin D 25 hydroxy (10/13/2024 6:18 AM EDT) Vit D, 25-Hydroxy 37.2 30.0 - 80.0 ng/mL 10/13/2024 6:21 PM EDT [facility] ([facility]) Comment:>80.0 Toxicity possi ble Blood Venous blood specimen / Unknown Venipuncture / Unknown 10/13/2024 6:18 AM EDT 10/13/2024 6:27 AM EDT us Loco Pardo MD LAB BLOOD ORDERABLES Final Resul t Performing Organization Address City/[facility]/ZIP Co de Phone Number [facility]) [address] [place] [address] * MRSA/MSSA DNA Nasal (10/13/2024 4:32 AM EDT) MSSA DNA Negative Negative 10/13/2024 2:09 PM EDT [facility] ([facility]) MRSA DNA Negative Negative 10/13/2024 2:09 PM EDT [facility] ([facility]) Swab Nasal structure / Unknown Non-blood Collection / Unknown 10/13/2024 4:32 AM EDT 10/13/2024 4:46 AM EDT Narrative [facility]) - 10/13/2024 2:09 PM EDT Testing methodology is an automated qualitative in vitro diagnostic test for the direct detection and differentiation of Staphylococcus aureus (SA) DNA and methicillin-resistant Staphylococcus aureus (MRSA) DNA from nasal swabs in patients at risk for nasal colonization. The test utilizes real-time polymerase chain reaction (PCR) for the amplification of MRSA/SA DNA and fluorogenic target-specific hybridization probes for the detection of the amplified DNA. A negative result does not preclude nasal colonization. us Loco Pardo MD LAB MICROBIOLOGY - GENERAL ORDER SHAUN Final Result Performing Organization Address City/[facility]/ZIP Co de Phone Number [facility]) [address] [place] [phone] * CT cervical spine wo IV contrast (10/13/2024 4:26 AM EDT) Anatomical Region Laterality Modality Spine, C-spine Computed Tomogra phy 10/13/2024 4:47 AM EDT Impressions 10/13/2024 4:52 AM EDT * No acute cervical spine fracture. * Left supraclavicular soft tissue swelling. Possible though not definitive nondisplaced fracture in the medial left clavicle. Electronically signed: Loy Ghosh MD. Narrative 10/13/2024 4:[address] CERVICAL SPINE WITHOUT CONTRAST HISTORY: Head injury, pain COMPARISON: None TECHNIQUE: Routine CT cervical spine without contrast. All CT scans at this facility use dose modulation, iterative reconstruction, and/or weight based dosing when appropriate to reduce radiation dose to as low as reasonably achievable. FINDINGS: No acute fracture. The predental space and craniocervical junction are maintained. Facet joints align normally. Multilevel bilateral facet arthropathy. Fusion between the C5 and C6 vertebral bodies. Multilevel disc related degenerative disease. Soft tissue swelling in the left supraclavicular region. Questionable fracture in the medial left clavicle (series 5, image 16). Procedure Note Loy Ghosh MD - 10/13/2024 CT CERVICAL SPINE WITHOUT CONTRAST HISTORY: Head injury, pain COMPARISON: None TECHNIQUE: Routine CT cervical spine without contrast. All CT scans atthis facility use dose modulation, iterative reconstruction, and/or weightbased dosing when appropriate to reduce radiation dose to as low as reasonably achievable. FINDINGS: No acute fracture. The predental space and craniocervical junction are maintained. Facet joints align normally. Multilevel bilateral facetarthropathy. Fusion between the C5 and C6 vertebral bodies. Multilevel disc related degenerative disease. Soft tissue swelling in the left supraclavicularregion. Questionable fracture in the medial left clavicle (series 5, image 16). IMPRESSION: *No acute cervical spine fracture. *Left supraclavicular soft tissue swelling. Possible though notdefinitive nondisplaced fracture in the medial left clavicle. Electronically signed: Loy Ghosh MD. Ann Marie Hernandez PA-C IMKarina CT PROCEDURES Final Resu lt * CT head wo IV contrast (10/13/2024 4:26 AM EDT) Anatomical Region Laterality Modality Head, Neck Computed Tomogra phy 10/13/2024 4:29 AM EDT Impressions 10/13/2024 4:47 AM EDT * No acute intracranial hemorrhage. * Punctate focus of hyperattenuation in the left posterior limb of the internal capsule with attenuation higher than expected for blood products favored to represent calcification. * Extensive chronic microvascular ischemic changes. Approved by:Marybel Hale10/13/2024 4:42 AM. I, Loy Ghosh MD,have reviewed the image(s) and agree with the findings in this report. Electronically signed: Loy Ghosh MD. Narrative 10/13/2024 4:47 AM EDT STUDY: CT HEAD WO IV CONTRAST INDICATION: head injury. Fall, hip fracture TECHNIQUE: * CT head was performed without intravenous contrast using the standard protocol. Automated exposure control was utilized. 3-D reconstructions are performed at the CT console under the supervision of a radiologist. * All CT scans at this facility use dose modulation, iterative reconstruction, and/or weight based dosing when appropriate to reduce radiation dose to as low as reasonably achievable. COMPARISON: None FINDINGS: Punctate focus of hyperattenuation in the left posterior limb of the internal capsule, likely calcification. No acute intracranial hemorrhage. Area of low attenuation in the left basal ganglia. No evidence of mass effect, midline shift, or extra-axial fluid collection. Moderate diffuse parenchymal atrophy. Ventricles, sulci and cisterns are otherwise unremarkable. Moderate burden of hypodense foci in the periventricular and subcortical white matter likely represent chronic microangiopathic changes. Bilateral lens replacement. Bilateral scleral xavier. Soft tissues are unremarkable. Intracranial atherosclerosis. Right anterior circulation vascular clip. Paranasal sinuses are broadly clear. Mastoid air cells are broadly clear. No acute osseous abnormality. Procedure Note Loy Ghosh MD - 10/13/2024 STUDY: CT HEAD WO IV CONTRAST INDICATION: head injury. Fall, hip fracture TECHNIQUE: *CT head was performed without intravenous contrast using the standard protocol. Automated exposure control was utilized. 3-D reconstructionsare performed at the CT console under the supervision of a radiologist. *All CT scans at this facility use dose modulation, iterative reconstruction, and/or weight based dosing when appropriate to reduceradiation dose to as low as reasonably achievable. COMPARISON: None FINDINGS: Punctate focus of hyperattenuation in the left posterior limb of theinternal capsule, likely calcification. No acute intracranial hemorrhage. Area oflow attenuation in the left basal ganglia. No evidence of mass effect, midline shift, or extra-axial fluidcollection. Moderate diffuse parenchymal atrophy. Ventricles, sulci and cisterns are otherwise unremarkable. Moderate burden of hypodense foci in theperiventricular and subcortical white matter likely represent chronic microangiopathicchanges. Bilateral lens replacement. Bilateral scleral xavier. Soft tissues are unremarkable. Intracranial atherosclerosis. Right anterior circulation vascular clip. Paranasal sinuses are broadly clear. Mastoid air cells are broadly clear.No acute osseous abnormality. IMPRESSION: *No acute intracranial hemorrhage. *Punctate focus of hyperattenuation in the left posterior limb of the internal capsule with attenuation higher than expected for bloodproducts favored to represent calcification. *Extensive chronic microvascular ischemic changes. Approved by:Marybel Hale10/13/2024 4:42 AM. Loy Eid MD,have reviewed the image(s) and agree with the findingsin this report. Electronically signed: Loy Ghosh MD. us Ann Marie Hernandez PA-C IMG CT PROCEDURES Final Resu lt * CT abdomen pelvis wo IV contrast (10/13/2024 4:26 AM EDT) Anatomical Region Laterality Modality Body, Pelvis, Abdomen Computed T omography 10/13/2024 4:47 AM EDT Impressions 10/13/2024 5:03 AM EDT * Comminuted left intertrochanteric fracture with varus angulation. Approved by:Marybel Hale10/13/2024 4:58 AM. Dhruv Eid MD,have reviewed the image(s) and agree with the findings in this report. Electronically signed: Dhruv Carr MD. Narrative 10/13/2024 5:[address] ABDOMEN PELVIS WO IV CONTRAST HISTORY: Fall, hip fracture COMPARISON: None TECHNIQUE: CT images of the abdomen and pelvis obtained without the administration of contrast. Lack of IV contrast limits evaluation, especially solid organs. Automated exposure control was utilized. All CT scans at this facility use dose modulation, iterative reconstruction, and/or weight based dosing when appropriate to reduce radiation dose to as low as reasonably achievable. FINDINGS: Assessment is suboptimal in the absence of intravenous contrast. Of note, vasculature and assessment for metastatic disease and infectious processes [if applicable] are particularly compromised. Dependent bibasilar atelectasis. Wall thickening of the airways, which may be seen in setting of infectious/inflammatory etiologies. . Biatrial enlargement with lipomatous hypertrophy interatrial septum. Severe calcified coronary arterial disease. Unremarkable liver, spleen, adrenal glands, pancreas. Prominent common bile duct, presumably reservoir effect from prior cholecystectomy. Renal parenchymal volume loss, no collecting system dilatation. Oconnor catheter terminates within the urinary bladder. 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 No dilatation or wall thickening of the bowel. Nonvisualized appendix. No pericecal inflammatory change. Moderate severe atherosclerotic disease abdominal aorta, notably at the origin celiac axis, SMA, renal arteries. Comminuted intertrochanteric left femoral neck fracture with ill-defined surrounding blood products, varus angulation. Osteopenia. Posterior fusion L4-5 with interbody cage device. Procedure Note Dhruv Carr MD - 10/13/2024 CT ABDOMEN PELVIS WO IV CONTRAST HISTORY: Fall, hip fracture COMPARISON: None TECHNIQUE: CT images of the abdomen and pelvis obtained without the administration of contrast. Lack of IV contrast limits evaluation,especially solid organs. Automated exposure control was utilized. All CT scans atthis facility use dose modulation, iterative reconstruction, and/or weightbased dosing when appropriate to reduce radiation dose to as low as reasonably achievable. FINDINGS: Assessment is suboptimal in the absence of intravenous contrast. Ofnote, vasculature and assessment for metastatic disease and infectious processes[if applicable] are particularly compromised. Dependent bibasilar atelectasis.Wall thickening of the airways, which may be seen in setting of infectious/inflammatory etiologies. . Biatrial enlargement withlipomatous hypertrophy interatrial septum. Severe calcified coronary arterialdisease. Unremarkable liver, spleen, adrenal glands, pancreas. Prominent commonbile duct, presumably reservoir effect from prior cholecystectomy. Renal parenchymal volume loss, no collecting system dilatation. Oconnor catheter terminates within the urinary bladder. 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 No dilatation orwall thickening of the bowel. Nonvisualized appendix. No pericecalinflammatory change. Moderate severe atherosclerotic disease abdominal aorta, notably at theorigin celiac axis, SMA, renal arteries. Comminuted intertrochanteric left femoral neck fracture with ill-defined surrounding blood products, varus angulation. Osteopenia. Posterior fusion L4-5 with interbody cage device. IMPRESSION: *Comminuted left intertrochanteric fracture with varus angulation. Approved by:Marybel Hale10/13/2024 4:58 AM. I, Dhruv Carr MD,have reviewed the image(s) and agree with the findingsin this report. Electronically signed: Dhruv Carr MD. Loco Pardo MD IMG CT PROCEDURES Final Result * Prepare RBC: 1 Units (10/13/2024 1:53 AM EDT) Only the most recent of2 resultswithin the time period is included. PRODUCT CODE [id number] [facility] Unit Number [id number]-* [facility] Unit ABO O [facility] Unit Rh POS [facility] Crossmatch Interpretation COMP [facility] Dispense Status TR [facility] Blood Expiration Date [id number] [facility] Product Blood Type 5100 [facility] Unit Volume 300 ML [facility] Other 10/13/2024 1:53 AM EDT J[facility] B[facility] PRODUCT ORDERABLES Fi nal Result [facility] * (ABNORMAL) Toxicology Screen, Urine (10/13/2024 1:21 AM EDT) Barbiturates Negative Negative 10/13/2024 1:50 AM EDT [facility]) Benzodiazepines Negative Negative 1:50 AM EDT [facility] Propoxyphene Negative Negative 10/13/2024 1:50 AM EDT [facility] Methadone Negative Negative 10/13/2024 1:50 AM EDT [facility] Tricyclics Negative Negative 10/13/2024 1:50 AM EDT [facility] Phencyclidine Negative Negative 10/13/2024 1:50 AM EDT [facility] Opiates Positive(A) Negative 10/13/2024 1:50 AM EDT [facility] Cocaine Negative Negative 10/13/2024 1:50 AM EDT [facility] ([facility]) Amphetamines/Metha mphetamine Negative Negative 10/13/2024 1:50 AM EDT [facility] Cannabinoid Negative Negative 10/13/2024 1:50 AM EDT [facility] ([facility]) Urine Urine specimen obtained by clean catch procedure / Unknown Non-blood Collection / Unknown 10/13/2024 1:21 AM EDT 10/13/2024 1:28 AM EDT Narrative [facility] ([facility]) - 10/13/2024 1:50 AM EDT Unconfirmed screening results should only be used for medical purposes. us Justin Bennett MD LAB URINE ORDERABLES Final Re sult [facility] ([facility]) [address] [place] [address] * (ABNORMAL) Urinalysis with microscopic (10/13/2024 1:21 AM EDT) Color, Urine Yellow Colorless, Yellow, Light-Yellow 10/13/2024 1:40 AM EDT [facility] ([facility]) Clarity, Urine Clear Clear 10/13/2024 1:40 AM EDT [facility] ([facility]) Specific [place], Urine 1.019 1.010 - 1.030 10/13/2024 1:40 AM EDT [facility]) pH, Urine 6.0 5.0 - 8.0 pH 10/13/2024 1:40 AM EDT [facility] Leukocytes, Urine Negative Negative 10/13/2024 1:40 AM EDT [facility] Nitrite, Urine Negative Negative 10/13/2024 1:40 AM EDT [facility] ([facility]) Protein, Urine 30(A) Negative mg/dL 10/13/2024 1:40 AM EDT [facility] Glucose, Urine Normal Normal mg/dL 10/13/2024 1:40 AM EDT [facility] ([facility]) Bilirubin, Urine Negative Negative 10/13/2024 1:40 AM EDT [facility] ([facility]) Ketones, Urine Negative Negative mg/dL 10/13/2024 1:40 AM EDT [facility] ([facility]) Urobilinogen, Urine Normal Normal mg/dL 10/13/2024 1:40 AM EDT [facility] ([facility]) Blood, Urine Trace(A) Negative 10/13/2024 1:40 AM EDT [facility] ([facility]) RBC, Urine 3-5(A) None Seen, 0-2 /HPF 10/13/2024 1:40 AM EDT [facility] ([facility]) WBC, Urine 0-2 None Seen, 0-2 /HPF 10/13/2024 1:40 AM EDT [facility] ([facility]) Squamous Epithelial, Urine Occasional None Seen, Occasional, Few /LPF 10/13/2024 1:40 AM EDT [facility] ([facility]) Casts, Urine Present(A) None Seen /LPF 10/13/2024 1:40 AM EDT [facility] ([facility]) Hyaline Casts, UA 0-2 0 - 2 /LPF 10/13/2024 1:40 AM EDT [facility] ([facility]) Urine Urine specimen obtained by clean catch procedure / Unknown Non-blood Collection / Unknown 10/13/2024 1:21 AM EDT 10/13/2024 1:28 AM EDT us Justin Bennett MD LAB URINE ORDERABLES Final Re sult [facility] ([facility]) [address] [place] [address] * XR transfer of outside films (10/13/2024 1:20 AM EDT) Narrative [facility] - 10/13/2024 1:20 AM EDT This order has been auto-finalized and does not contain a result. us Justin Bennett MD IMG XR PROCEDURES Final Resul t [facility] * (ABNORMAL) CBC auto differential (10/13/2024 1:20 AM EDT) Auto WBC 10.57 4.00 - 10.60 10*3/uL 10/13/2024 1:57 AM EDT [facility] ([facility]) RBC 3.32(L) 3.80 - 5.00 10*6/uL 10/13/2024 1:57 AM EDT [facility] ([facility]) Hemoglobin 10.1(L) 12.0 - 15.0 g/dL 10/13/2024 1:57 AM EDT [facility] ([facility]) Hematocrit 30.5(L) 36.0 - 45.0 % 10/13/2024 1:57 AM EDT [facility] ([facility]) MCV 91.9 82.0 - 98.0 fL 10/13/2024 1:57 AM EDT [facility] ([facility]) MCH 30.4 27.0 - 33.0 pg 10/13/2024 1:57 AM EDT [facility] ([facility]) MCHC 33.1 32.0 - 35.0 g/dL 10/13/2024 1:57 AM EDT [facility] ([facility]) RDW 12.9 11.5 - 15.0 % 10/13/2024 1:57 AM EDT [facility] ([facility]) Neutrophils % 88.8(H) 40.0 - 72.0 % 10/13/2024 1:57 AM EDT [facility] ([facility]) Lymphocytes % 4.5(L) 20.0 - 45.0 % 10/13/2024 1:57 AM EDT [facility] ([facility]) Monocytes % 6.3 5.0 - 12.0 % 10/13/2024 1:57 AM EDT [facility] ([facility]) Eosinophils % 0.0 0.0 - 6.0 % 10/13/2024 1:57 AM EDT [facility] ([facility]) Basophils % 0.1 0.0 - 1.0 % 10/13/2024 1:57 AM EDT [facility] ([facility]) Neutrophils Absolute 9.38(H) 1.60 - 7.60 10*3/uL 10/13/2024 1:57 AM EDT [facility] ([facility]) Lymphocytes Absolute 0.48(L) 1.20 - 4.00 10*3/uL 10/13/2024 1:57 AM EDT [facility] ([facility]) Monocytes Absolute 0.67 0.10 - 1.00 10*3/uL 10/13/2024 1:57 AM EDT [facility] ([facility]) Eosinophils Absolute 0.00 0.00 - 0.50 10*3/uL 10/13/2024 1:57 AM EDT [facility] ([facility]) Basophils Absolute 0.01 0.00 - 0.20 10*3/uL 10/13/2024 1:57 AM EDT [facility] ([facility]) Platelets 152 150 - 400 10*3/uL 10/13/2024 1:57 AM EDT [facility] ([facility]) nRBC % 0.0 0 % 10/13/2024 1:57 AM EDT [facility] ([facility]) Immature Granulocytes % 0.3 0.0 - 1.0 % 10/13/2024 1:57 AM EDT [facility] ([facility]) Immature Granulocytes Absolute 0.03 0.00 - 0.20 10*3/uL 10/13/2024 1:57 AM EDT [facility] ([facility]) Blood Venous blood specimen / Unknown Venipuncture / Unknown 10/13/2024 1:20 AM EDT 10/13/2024 1:30 AM EDT us Justin Bennett MD LAB BLOOD ORDERABLES Final Re sult [facility] ([facility]) [address], [place] [id number] * APTT (10/13/2024 1:20 AM EDT) aPTT 26.9 25.0 - 35.0 Seconds 10/13/2024 1:49 AM EDT [facility] ([facility]) Comment:Clinical significanc e of the APTT is questionable in the presence of heparin. Blood Venous blood specimen / Unknown Venipuncture / Unknown 10/13/2024 1:20 AM EDT 10/13/2024 1:28 AM EDT us Justin Bennett MD LAB BLOOD ORDERABLES Final Re sult [facility]) [address] [place] [address] * Protime-INR (10/13/2024 1:20 AM EDT) Protime 13.2 12.3 - 14.8 Seconds 10/13/2024 1:48 AM EDT [facility]) INR 1.00 0.90 - 1.10 10/13/2024 1:48 AM EDT [facility] ([facility]) Comment: [facility] RECOMMENDED INR FOR [facility] THERAPY CONDITION INR PROPHYLAXIS OF VENOUS THROMBOSIS 2-3 (HIGH-RISK SURGERY) TREATMENT OF VENOUS THROMBOSIS 2-3 TREATMENT OF PULMONARY EMBOLISM 2-3 PREVENTION OF SYSTEMIC EMBOLISM: 2-3 ACUTE MYOCARDIAL INFARCTION TISSUE HEART VALVES VALVULAR HEART DISEASE ATRIAL FIBRILLATION RECURRENT SYSTEMIC EMBOLISM MECHANICAL HEART VALVE 2.5-3.5 FROM: ORAL ANTICOAGULANTS. MECHANISM OF ACTION, CLINICAL EFFECTIVENESS, AND OPTIMAL THERAPEUTIC RANGE. CHEST 1995;108:[id number]. Blood Venous blood specimen / Unknown Venipuncture / Unknown 10/13/2024 1:20 AM EDT 10/13/2024 1:28 AM EDT Justin Bennett MD LAB BLOOD ORDERABLES Final Re sult Performing Organization Address [facility]/ZIP Co de Phone Number [facility] ([facility]) [address] [place] [address] * Type and screen (10/13/2024 1:20 AM EDT) ABO Grouping O 10/13/2024 2:39 AM EDT [facility] Rh Type POS 10/13/2024 2:39 AM EDT [facility] Ab Scrn NEG 10/13/2024 2:39 AM EDT [facility] Blood Venous blood specimen / Unknown Venipuncture / Unknown 10/13/2024 1:20 AM EDT 10/13/2024 1:29 AM EDT Justin Bennett MD LAB BLOOD BANK TEST ORDERABLE S Final Result Performing Organization Address [facility]/ZIP Co de Phone Number [facility] * Lipase (10/13/2024 1:20 AM EDT) Lipase 14 11 - 82 U/L 10/13/2024 1:55 AM EDT [facility] ([facility]) Blood Venous blood specimen / Unknown Venipuncture / Unknown 10/13/2024 1:20 AM EDT 10/13/2024 1:30 AM EDT Justin Bennett MD LAB BLOOD ORDERABLES Final Re sult Performing Organization Address City/[facility]/ZIP Co de Phone Number [facility] ([facility]) [address], [place] [id number] * Lactic acid, plasma (10/13/2024 1:20 AM EDT) Lactate 0.8 0.5 - 2.2 mmol/L 10/13/2024 1:49 AM EDT [facility] ([facility]) Blood Venous blood specimen / Unknown Venipuncture / Unknown 10/13/2024 1:20 AM EDT 10/13/2024 1:28 AM EDT Justin Bennett MD LAB BLOOD ORDERABLES Final Re sult [facility]) [address] [place] [address] * Ethanol (10/13/2024 1:20 AM EDT) Pathologist [facility] Ethanol Calculated % <0.01 % 10/13/2024 1:49 AM EDT [facility] ([facility]) Ethanol Lvl <10 <10 mg/dL 10/13/2024 1:49 AM EDT [facility] ([facility]) Blood Venous blood specimen / Unknown Venipuncture / Unknown 10/13/2024 1:20 AM EDT 10/13/2024 1:28 AM EDT Justin Bennett MD LAB BLOOD ORDERABLES Final Re sult [facility]) [address] [place] [address] * (ABNORMAL) Hepatic function panel (10/13/2024 1:20 AM EDT) Total Bilirubin 0.5 0.3 - 1.0 mg/dL 10/13/2024 1:55 AM EDT [facility] ([facility]) Bilirubin, Direct 0.1 0 - 0.2 mg/dL 10/13/2024 1:55 AM EDT [facility] ([facility]) Alkaline Phosphatase 51 34 - 104 U/L 10/13/2024 1:55 AM EDT [facility] ([facility]) AST 17 13 - 39 U/L 10/13/2024 1:55 AM EDT [facility] ([facility]) ALT (SGPT) 8 7 - 52 U/L 10/13/2024 1:55 AM EDT [facility] ([facility]) Total Protein 5.6(L) 6.0 - 8.3 g/dL 10/13/2024 1:55 AM EDT [facility]) Albumin 3.7 3.5 - 5.7 g/dL 10/13/2024 1:55 AM EDT [facility] Blood Venous blood specimen / Unknown Venipuncture / Unknown 10/13/2024 1:20 AM EDT 10/13/2024 1:30 AM EDT us Justin Bennett MD LAB BLOOD ORDERABLES Final Re sult [facility] ([facility]) [address] [place] [address] from Last 3 Months Insurance [facility] MEDICARE ADVANTAGE Advance Directives * Full Code (Latest Code Status on File) Date Activated Date Inactivated Comments 10/13/2024 5:05 AM 10/20/2024 10:12 AM Care Teams Hospital Cleaning Specialist Relationship Specialty Start Date End Date Nunu Briceño CNP [address] [place] [address] PCP - General 10/16/24
[2024-11-08 16:32] LABS: NT Pro B Type Natriuretic Pept 1864.0 pg/mL (<=1800.0)
== END 2024-11-08 14:56 | disposition home or self-care (01) ==
LOC: LAB 15:01
PROVIDERS: PCP Family Medicine; Visit Provider Internal Medicine Cardiovascular Disease
DX: I21.4 Non-ST elevation (NSTEMI) myocardial infarction (principal)
CPT/HCPCS: 36415; 83880; 84484

== ENCOUNTER 2024-12-22 09:03 | Outpatient (OUT) | payer MEDICARE, SELFPAY ==
--- OUTSIDE RECORDS SUMMARY | 2024-12-21 06:16 | XMS_ITS | Continuity of Care Document ---
Author Organization [facility] Address [address] [place] [address] Phone Care Team Providers Care Stunner Name Role Phone Mallory Briceño APRN Primary Care Provider Katie Salas DO Attending Provider Mallory Briceño APRN Attending Provider Care Teams Patient Care Team Team Status: Active Member Role/Relationship Status Dates Mallory Briceño APRN Primary Care Provider Activ e Yvonne Savage Care ProviderActive Visit Care Team Team Status: Inactive Member Role/Relationship Status Dates Mallory Briceño APRN Primary Care Provider Activ e Start: November 27, 2024 End: November 27, 2024Elaine Collins ProviderActiveStart: November 27, 2024 End: November 27, 2024 Visit Care Team Team Status: Inactive Member Role/Relationship Status Dates Mallory Briceño APRN Primary Care Provider Activ e Start: December 06, 2024 End: December 06, 2024Oly Savage ProviderActiveStart: December 06, 2024 End: December 06, 2024 Visit Care Team Team Status: Inactive Member Role/Relationship Status Dates Mallory Briceño APRN Primary Care Provider Activ e Start: December 06, 2024 End: December 06, 2024Oly Savage ProviderActiveStart: December 06, 2024 End: December 06, 2024 Patient Care Team Team Status: Inactive Member Role/Relationship Status Dates Mallory Briceño APRN Primary Care Provider Regis e Start: December 21, 2024 End: December 21, 2024Oly Savage ProviderActiveStart: December 21, 2024 End: December 21, 2024 Chief Complaint and Reason for Visit Chief Complaint Admit Date rash on buttocks November 27, 2024 10 :13am SNF f/u December 06, 2024 8 :52am e55.9 e83.42 I27.20 r06.02 n28.9 z13.228 r53.83 December 06, 2024 9:59am 2 week f/u December 21, 2024 9 :16am Reason for Visit Admit Date Rash November 27, 2024 10 :13am Constipation December 06, 2024 8 :52am Non-ST elevated myocardial infarction (n on-STEMI) December 06, 2024 8:52am Primary hypertension December 06, 2024 8:52am Status post left hip replacement December 06, 2024 8:52am Transition of care December 06, 2024 8 :52am COPD (chronic obstructive pulmonary dise ase) December 06, 2024 8:52am Reason for Referral Type Reason(s) Provider Provider Contact Information [facility] Address Start Date Encounter for wound care Pressure injury of skinZ51.89 - Encounter for other specified aftercare,L89.90 - Pressure ulcer of unspecified site, unspecified stageD[facility] Phone: [phone] [facility] [phone] 2024 Allergies, Adverse Reactions, Alerts Allergen Type Severity Reaction Last Updated Verified Status labetalol Allergy Unknown Vomiting, vomit ing and lightheaded December 21, 2024 9:30am Yes Active Social History Smoking Status Status Start Date End Date Date of Observa tion Ex-smoker (finding) December 27, 2023 8:23am Observation Status Observation Response Date of Response Legal Sex Female (finding) [facility] 1940 Family History Relationship Condition Age at Onset Recorded Date/T rich father Unknown Hodgkin lymphomaUnknownMalignant neoplasmUnknownParkinson's diseaseUnknownmother DeceasedUnknownTuberculosisUnknown Problems Active Problems Problem Diagnosis/Recorded Date Onset Date Status C omments Type 2 myocardial infarction June 03, 2018 11:16am Unkn own Active Wheezing on both sides of chestJanuary 2024 12:33pmUnknownActiveInsomnia March 14, 2024 10:51amUnknownActiveOcclusion and stenosis of bilateral carotid arteriesFebruary 2023 9:07amUnknownActiveStatus post left hip replacementOctober 2024 2:02pmUnknownActiveTransition of careOctober 2024 2:07pmUnknownActiveAtherosclerosisApril 2018 7:54pmUnknownActive OsteoporosisFebruary 2023 9:07amUnknownActiveSOB (shortness of breath) on exertionJanuary 2024 12:33pmUnknownActiveAneurysm of [place] of [place] October 12, 2023 11:28amUnknownActivenon-operableBack painJuly 2024 12:17pmUnknownActivePulmonary hypertensionFebruary 2023 9:07amUnknown ActiveAtypical nevus of left lower legFebruary 2023 10:56amUnknownActive Acute kidney insufficiencyJanuary 2024 11:04amUnknownActiveMixed hyperlipidemiaFebruary 2023 9:07amUnknownActiveMyocardial infarctionMay 2021 12:32amUnknownActivewith CAD 1996Non-ST elevated myocardial infarction (non-STEMI)December 11, 2024 2:00pmUnknownActiveMuscular deconditioningApril 2018 11:16amUnknownActiveNeuropathySeptember 2023 10:14amUnknownActiveSpinal stenosisFebruary 2023 9:07amUnknownActive Primary hypertensionFebruary 2023 9:07amUnknownActiveAbnormal antinuclear antibody titerJuly 2024 9:57amUnknownActiveGastroesophageal reflux disease without esophagitisFebruary 2023 9:07amUnknownActiveHypoxiaJanuary 2024 12:33pmUnknownActiveNeurogenic claudicationSeptember 2023 10:09am UnknownActiveCallus of footSeptember 2023 10:10amUnknownActivePeripheral artery diseaseFebruary 2023 9:07amUnknownActiveCOPD (chronic obstructive pulmonary disease)May 30, 2018 7:52pmUnknownActiveHaemophilus influenzae pneumoniaApril 2018 3:13pmUnknownActiveDebilitated patientApril 2018 11:16amUnknownActiveHypertensionApril 2018 7:53pmUnknownActivePneumonia May 30, 2018 7:52pmUnknownActiveProtein deficiencyOctober 2024 3:16pm UnknownActiveConstipationOctober 2024 2:03pmUnknownActiveVitamin D deficiencyNovember 2023 12:32pmUnknownActiveFallMay 2021 12:08am UnknownActiveIntertrochanteric fracture of right hipMay 2021 12:08am UnknownActiveInactive/Resolved Problems Problem Diagnosis/Recorded Date Onset Date Status C omments History of right-sided carotid endarterectomy October 12, 2023 11:33am Unknown Resolved with current aneurysm 1996 Elevated troponin May 30, 2018 7:52pm Unknown Resolv ed DehydrationApril 2018 7:52pmUnknownResolved Medications Medication Status Dose Units Route Directions Qty Days Refills S tart Date Stop Date End Date Reason(s) Instructions Adherence Oxybutynin Chloride 5 mg tablet Discontinued 5 MG PO Twice daily 180 1March 2023 3:08pmMarch 2023 2:40pmOxybutynin Chloride 5 mg tablet Rxdgynkztghy1EHVYSumma issli7465Fctqh 2023 2:40pmAugust 2023 8:53am Hydralazine 50 mg tabletDiscontinued0.ROUTE.DXMYKMO484Fcagg 2023 3:27pm March 14, 2024 10:04amTAKE 1 TABLET EVERY DAYOxybutynin Chloride 5 mg tablet Rgxrxajuenkg4CBLLBorqz zyzjx2917Jkvgwv 2023 8:53amJanuary 2024 10:42amCholecalciferol (Vitamin D3) 50 mcg (2,000 unit) tablet,gncrbvdfMhqpef776 XJHVLYvldk5576Wfkyhhxa 2023 1:00amVitamin D deficiency Vitamin D deficiency, unspecifiedComplies with drug therapyLisinopril 40 mg lstuvcUfujkgmcriah90QUAMVeogr645Muscrqfw 2023 10:19amJanuary 2024 10:05amOxybutynin Chloride 5 mg tabletActive0.ROUTE.NOLPZRF2430Mvjoivr 2024 10:42amTAKE 1 TABLET TWICE DAILYComplies with drug therapyAmlodipine 5 mg tabletDiscontinued0.ROUTE.GKLRXJL374Ftppfcxa 2024 12:20pmFebruary 2024 10:24amTAKE 1 TABLET EVERY DAYBudesonide-Formoterol (Symbicort) 160-4.5 mcg/actuation HFA aerosol hydkuzvAopwgzahzvtz9NWKLHNLQMPITGIHoiek 12 hoursMarch 29, 2024 3:36pmOctober 2024 10:23amCOPDAtorvastatin 40 mg tablet Ockpnf54QGLFSwkmb34418Jvtnfjgn 2024 12:14pmComplies with drug therapy Lisinopril 10 mg ixcveaWlocjxhkqtpp04WMLBXgbuh229Nmku 2024 12:17pmJune 2024 9:03amNystatin-Triamcinolone 100,000-0.1 unit/g-% creamDiscontinued1 APPLICTOPICALTwice rxuax41888Hwhpbng 2024 9:42amOctober 2024 10:08am Ferrous Sulfate 325 mg (65 mg iron) kprzohSifckl396PZNXAtoei qhroz989Jnfwmtz 2024 12:00amComplies with drug therapyMetoprolol Succinate 25 mg tablet extended release 24 ctUygopi40MQNGNnkvw895Lplucdm 2024 4:30pmComplies with drug therapyOxybutynin Chloride 10 mg Tablet Extended Release 96ngXeqekckooybz55 MGPODailyApril 2018 12:00amFebruary 2023 8:54amAzithromycin 250 mg kuenyeSxlwveobojmv816AHJWPylry852Pjsnf 2018 12:00amApril 2018 12:00amApril 2018 12:02amCefdinir 300 mg nbgxcumHiegdlvurfot179IOVNRzgrx iaceh39Egonf 2018 12:00amMay 2021 2:47pmAlbuterol Sulfate 2.5 mg /3 mL (0.083 %) Solution For PmeldctpwgefIeqvxareeypf6EEZHDKXHTMZDDXQozwq times dailyFebruary 08, 2018 1:00amMay 2021 2:47pmOxybutynin Chloride 10 mg Tablet Extended Release 04hrPkrbbjebufff40BKWIHztfzPntmzgxk 18th, 2018 1:00am March 30, 2018 3:31pmHydrocodone-Acetaminophen ([place]) 5-325 mg Tablet Neflosrvldqp2HCTCSBpyoi 6 hours as needed for PainFebruary 08, 2018 1:00amJune 2021 8:16amAlendronate 70 mg rxmzaxNeuyfvicaqvc3WBXUShqtxg weekFebruary 08, 2018 1:00amFebruary 2023 8:55amAspirin (Aspir-81) 81 mg Tablet,Delayed Release (Dr/Ec)Hslivioodsxh6WQNCIAchlxIhnfzkzy 18th, 2018 1:00am April 19, 2023 8:55amSimvastatin 40 mg sopddzNybqsdhqurfj01IBCYUuknivt February 08, 2018 1:00amFebruary 2023 8:54amPantoprazole 40 mg Tablet,Delayed Release (Dr/Ec)Zwdjoccsebwc02HVPTPsodaFxauqaxs 18th, 2018 1:00am April 19, 2023 8:54amRopinirole 0.5 mg TabletDiscontinued0.5MGPODaily at bedtimeFebruary 08, 2018 1:00amFebruary 2018 3:31pmNitroglycerin 0.4 mg Tablet, SublingualDiscontinued0.4MGSUBLINGUALEvery 5 minutes x 3 doses as needed for Chest PainFebruary 08, 2018 1:00amFebruary 2023 8:54amHydralazine 50 mg DtuhgzLkifoscwtxqs81JCJHXsjvn dailyFebruary 08, 2018 1:00amFebruary 2023 8:55amLisinopril 40 mg BqgsvjAllzgpcyygyk92CQKISgtwcNypsrqkn 18th, 2018 1:00amFebruary 2023 8:54amLoratadine 10 mg WaqsphHgjyndmmteza32KWMMYmtyb February 08, 2018 1:00amFebruary 2023 8:54amGlipizide 5 mg Tablet Discontinued2.5MGPOTwice dailyFebruary 08, 2018 1:00amFebruary 2018 3:31pmIpratropium [place] 0.02 % SolutionDiscontinued1.25MLINHALATIONEvery 6 hours as needed for Shortness Of Breath Or WheezingFebruary 08, 2018 1:00amMay 2021 2:47pmVitamin B Complex RyibwlhYserikisikbo9SHBLARistfDxrqmvtb 18th, 2018 1:00amFebruary 2018 3:32pmMetformin 750 mg tablet extended release 24 qrHqfgvfxccgoc1QGYKEWceltVpemkucy 18th, 2018 1:00amFebruary 2023 8:54am Tramadol 100 mg AyuvzdPplruaxafckz372JPKWYhqcs daily as needed for PainMay 2021 12:00amJune 2021 2:45pmRopinirole 1 mg PlybfaFirgtgrgnqlk8GCZLVpfyt dailyJuly 18, 2021 12:00amFebruary 2023 8:54amSennosides-Docusate Sodium 8.6-50 mg ZouicrCpkdwvkhmczy0OIOLYVrdufOth 27th, 2022 12:00amFebruary 2023 8:54amPolyethylene Glycol 3350 (Miralax) 17 gram Powder In GhgowxVcnlntgukwep51 GMPODailyDe2021 12:00amFebruary 2023 8:54amLidocaine 4 % Adhesive Patch,YyezzoxntVnqegmobsnch3CBLDPXYUVZKELogrc as needed for PainMay 2021 12:00amFebruary 2023 8:55amIpratropium-Albuterol 0.5 mg-3 mg(2.5 mg base)/3 mL Solution For NpmfyvpdbynfQlnaeossmwug7XWZSASFLBSQWC3O as needed for Shortness Of Breathy 2021 12:00amFebruary 2023 8:55amAscorbic Acid (Vitamin C) (Vitamin C) 500 mg TacpfzXyjzgeirqwms946JVANHjous daily with mealsJuly 23, 2021 12:00amFebruary 2023 10:37amAcetaminophen 500 mg Tablet Tvceqaojigms7919JFTDB6M6930Rqri 1st, 2022 12:00amFebruary 2023 10:36am Calcium Carbonate (Oyster Shell Calcium 500) 500 mg calcium (1,250 mg) Tablet Azdrximfhzav797JVFXHpbct fimsx92Sgeb2021 12:00amFebruary 2023 10:37amErgocalciferol (Vitamin D2) 1,250 mcg (50,000 unit) CapsuleDiscontinued 1250MCGPOFr@892238Fffk 2021 12:00amFebruary 2023 10:37amFerrous Sulfate 324 mg (65 mg iron) Tablet,Delayed Release (Dr/Ec)Nwjxjbhodeaj773SJSX Every 48 bqbve714Aule 1st, 2022 12:00amFebruary 2023 10:37amEnoxaparin (Lovenox) 40 mg/0.4 mL GedwdivFigviiehqded55VIZBNSFAIBMAY@56322440Ncxv 2021 12:00amFebruary 2023 10:37amTramadol 100 mg FibjaoQxchyxdpkley348BBKVJueey daily as needed for Ipju8124PaviJuly 23, 2021 2:45pmFebruary 2023 10:37am Intertrochanteric fracture of right femurAspirin 81 mg tablet,delayed release (DR/EC)Tvswpuvoofug38WQXICoxkvVztyuhmz 2023 1:00amOctober 2024 10:25amAtorvastatin 40 mg oyboxbEewjahxwlwel63EDXTRyjflZbrhqmhv 2023 1:00amFebruary 2024 12:15pmHydralazine 50 mg pujinkBzsyrzlcdcni16NICW .COMPLEXFebruary 2023 1:00amFebruary 2023 11:39am50 mg orally once daily;Lisinopril 40 mg yqeqvmQkghpajidwuo31VNSXZyqdfJtcvtfko 2023 1:00am April 19, 2023 11:39amOxybutynin Chloride 5 mg qorfdiRcfbuozdgybo0OBQFYhaxd dailyFebruary 2023 1:00amMarch 2023 3:08pmAmlodipine 5 mg tablet Psozkflfdeyo6XDQGInrciJklptltu 2023 1:00amFebruary 2023 11:39am FreeTextSi tablet Orally Once a day; Note: Source Status: Start; Refills: 6; Provider: Krysta MAlbuterol Sulfate 2.5 mg /3 mL (0.083 %) solution for nebulizationDiscontinuedMGINHALATIONFebruary 2023 1:00amOctober 2024 10:22amFreeTextSi mL as needed Inhalation, DX:496 every 6 hrs; Note: Source Status: Not-Taking\PRN; Refills: 3; Qty: 1080 ml; Provider: Juve Srinivasan AAmlodipine 5 mg mktyaxGarwliwnobmo1FEBPDddck257Kqnmdbnd 2023 11:37amFebruary 2024 12:20pmFreeTextSi tablet Orally Once a day; Note: Source Status: Start; Refills: 6; Provider: Krysta MHydralazine 50 mg ydlgbgUcywmvercfsa95GGUJ.FHEWGRA042Tquhfhyl 2023 11:38amApril 2023 3:27pm50 mg orally once daily;Lisinopril 40 mg vzhkcjEtzcsouqwixm58QEYVVoswa637 April 19, 2023 11:38amNovember 2023 10:19amAlbuterol Sulfate 90 mcg/actuation HFA aerosol inhalerDiscontinuedINHALATIONJanuary 2024 1:00am November 27, 2024 10:08smHkumcclbuds-Iijgiwegl-Cwdqjzrs (Trelegy Ellipta) 100-62.5-25 mcg blister with kfokymCuxfvkzyyctx0FROPIXRDNFZPXDpfhx192Sceshgr 2024 1:00amJanuary 2024 12:41pmLisinopril 5 mg uxxztmAyysiurofias9WE QUEokso249Tpdmnwm 2024 1:00amFebruary 2024 10:34amFluticasone Propion-Salmeterol (Advair Diskus) 250-50 mcg/dose blister with device Zflhoxhezlrc7GNOXBZHIRNZFGSbgae 12 ktffp374Nawzjbk 2024 1:00amJanuary 2024 12:45pmBudesonide-Formoterol (Symbicort) 160-4.5 mcg/actuation HFA aerosol vikhfeyKutgrrgncbis8RTXIVDAVXLMIWMYbmfh 12 hours10.22January 2024 1:00amFebruary 2024 3:38pmAmlodipine 5 mg qpqcdtBhrafc7FS.ROUTE.ZYDPGQT033 April 19, 2024 10:24am5 mg;Complies with drug therapyLisinopril 10 mg rmrkiaYefbodekrrzk57UOESGepbw192Vgllxnme 2024 1:00amJune 2024 12:18pm Lisinopril 10 mg idzokiYspeweyrdmke0MEAZPafmrNgzn 2024 9:02amOctober 2024 10:23amLisinopril 5 mg slkvloSbtcmtpaccrg2EVAKThadeFrdk 2024 12:00am November 27, 2024 10:23amLidocaine 5 % adhesive patch,medicatedDiscontinued1 PATCHTOPICALDailyJune 2024 12:00amOctober 2024 10:23amleave on most painful area for up to 12 hrsCalcium Carbonate 600 mg calcium (1,500 mg) tablet Gmjbuhtwveef460KEYCOaydkMffd 2024 12:00amOctober 2024 10:22amAspirin (Adult Low Dose Aspirin) 81 mg tablet,delayed release (DR/EC)Npmsfi03MEBVBqqjr August 04, 2024 12:00amComplies with drug therapyAlbuterol Sulfate 90 mcg/actuation HFA aerosol gpyrycjBdqxdr2PKRLCEVLUNEJGXQXWEZ 4-6 HOURS8.56October 2024 9:40amAs needed for SOB emergency inhalerComplies with drug therapy Budesonide-Formoterol (Symbicort) 160-4.5 mcg/actuation HFA aerosol inhaler Rgalgf6VFGKDURJOOJDPFVclvl 12 hours10.26October 2024 9:41amComplies with drug therapyOxygen unitActive0.RouteAugust 2023 12:00amAs directed 3 liters at night and PRN D[employer] Medical Service CompanyDuloxetine (Cymbalta) 30 mg capsule,delayed release(DR/EC)Dxywsofatwjv85MVLPMfird767Knmy 2024 12:00am November 27, 2024 10:23amAllopurinol 300 mg sbnqupSibdxnwtegir442XTMMBmrll November 27, 2024 12:00amOctober 2024 9:36amMetoprolol Succinate 25 mg tablet extended release 24 heNatufkoxdjfp18UUPLDhcqgZltnonl 2024 12:00am December 06, 2024 4:30pmNystatin-Triamcinolone 100,000-0.1 unit/g-% cream Sdhazfkiybty5WEIJAYSITOIEKNocbl rgnmi24171Ragfmxd 2024 12:00am[facility] 20[facility] 9:42am Immunizations Immunization Event Date Not Given Reason Dose Number Physiatrist Lot Number Reason(s) Given Vaccine Information Statement (VIS) Detail Administration Location COVID-19 mRNA, Comirnaty (Yeahka) March 29, 2020 COVID-19 mRNA, Comirnaty (Yeahka)April 19OVID-19 mRNA, Comirnaty (Yeahka)January 01OVID-19 mRNA, Comirnaty (Yeahka)June 25, 2021 Quadrivalent Influenza (mdv)November 20, 2011Quadrivalent Influenza (mdv) November 06, 2014Influenza vaccine, quadrivalent, adjuvantedOctober 2022 influenza, unspecified formulationSeptember 2016Pneumococcal Conjugate Vaccine, 13 valentFebruary 2016Pneumococcal Polysacc. Vaccine, 23 valent November 20, 2011Trivalent Influenza VaccineJanuary 2018Trivalent Influenza VaccineSeptember 2019Shingles (Zoster)April 08, 2023 Medical Equipment Device Date Implanted Device Details Orthopaedic bone screw, non- bioabsorbable, non-sterile July 18, 2021 EMILIA: ()[id number] Issuing Agency: [facility] Device Id: [id number] bone screw, non-bioabsorbable, non-sterile July 18, 2021UDI: ()[id number] Issuing Agency: [facility] Device Id: [id number] nail, sterileMay 2021UDI: ()[id number] Issuing Agency: [facility] Device Id: [id number] Expiration Date: 2031-04-22 Lot Number: [id number] bladeMay 2021UDI: ()[id number] Issuing Agency: [facility] Device Id: [id number] Expiration Date: 2031-04-22 Lot Number: [id number] Relevant Diagnostic Tests and/or Laboratory Data Laboratory Results Test Collection Date/Time Result Date/Time Result Interpretation Reference Range Result Comment Performing Site Corrected White Blood Count December 06, 2024 9:59am December 06, 2024 12:58pm 4.7 10*3/uL 3.8-11.6[facility] [id number] [address] [facility] [address]Ftzstkdgdcw WBC CountOctober 2024 9:59amOctober 2024 12:58pm4.7 10*3/uL3.8-11.6FBl[facility] [id number] [address] [facility] [address]Vbk Blood CountOctober 2024 9:59amOctober 2024 12:58pm3.17 10*6/uLBelow low normal3.60-5.00[facility] [id number] [address] [facility] [address]ApmozizplyDacnvlv 2024 9:59amOctober 2024 12:58pm 9.5 g/dLBelow low .8-15.4FMer[facility] [id number] [address] [facility] [address]OxxhfnrhbqIfwbbdg 2024 9:59amOctober 2024 12:58pm 29.0 %Below low .0-46.4FMercy [facility] [id number] [address] [facility] [address]Ndex Corpuscular VolumeOctober 2024 9:59amOctober 2024 12:58pm91.3 yK20-395TulpvxienTrinity Health System Ctr [id number] [address] [facility] [address]Jtlm Corpuscular HemoglobinOctober 2024 9:59amOctober 2024 12:58pm30.0 pg24.7-34.3FMercy Health Willard [facility] [id number] [address] [place] [address]Bjhl Corpuscular Hemoglobin ConcentOctober 2024 9:59am October 2024 12:58pm32.9 g/dL32.0-35.0[facility] [id number] [address] [facility] [address]Ncw Cell Distribution WidthOctober 2024 9:59amOctober 2024 12:58pm16.2 %Above high aocyaq48.9-15.3FMercy Health Willard [facility] [id number] [address] [facility] [address]Tquqhkgz CountOctober 2024 9:59amOctober 2024 12:37ty297 10*3/iY212-631AotuusugqTrinity Health System Ctr [id number] [address] [place] [address]Zgvr Platelet VolumeOctober 2024 9:59amOctober 2024 12:58pm11.3 fLAbove high normal6.3-10.7FMercy Health [facility] [id number] [address] [facility] [address]Idzquoabfll (%) (Auto)December 06, 2024 9:59amOctober 2024 12:58pm75.0 %.[facility] [id number] [address] [facility] [address]Ceyzbxctlpc (%) (Auto)December 06, 2024 9:59amOctober 2024 12:58pm14.6 %.[facility] [id number] [address] [facility] [address]Jkfyaxdmd (%) (Auto)December 06, 2024 9:59amOctober 2024 12:58pm9.3 %.[facility] [id number] [address] [facility] [address]Pivrvsodznf (%) (Auto)December 06, 2024 9:59amOctober 2024 12:58pm0.1 %.[facility] [id number] [address] [facility] [address]Ideogiayq (%) (Auto)December 06, 2024 9:59amOctober 2024 12:58pm1.0 %.[facility] [id number] [address] [facility] [address]Jumgafczd RBC Relative Count (auto)December 06, 2024 9:59am December 06, 2024 12:58pm0.1 /100{WBC}0-0.5FMercy Health Willard [facility] [id number] [address] [facility] [address]Oiqygdwrtny # (Auto)December 06, 2024 9:59amOctober 2024 12:58pm3.5 10*3/uL1.8-7.7FMercy Health Willard [facility] [id number] [address] [facility] [address]Ehljghovewk # (Auto)December 06, 2024 9:59amOctober 2024 12:58pm0.7 10*3/uLBelow low normal1.00-4.8[facility] [id number] [address] [facility] [address]Abrryqasn # (Auto)December 06, 2024 9:59amOctober 2024 12:58pm0.4 10*3/uL0.0-0.8[facility] [id number] [address] [facility] [address]Mivhpxylcee # (Auto)December 06, 2024 9:59amOctober 2024 12:58pm0.0 10*3/uL0.0-0.45[facility] [id number] [address] [facility] [address]Rtuqeswnk # (Auto)December 06, 2024 9:59amOctober 2024 12:58pm0.0 10*3/uL0.0-0.2FMercy Health Will[facility] [id number] [address] [facility] [address]Qwpffaz LevelOctober 2024 9:59amOctober 2024 1:14pm 120 mg/dLAbove high gwypvb03-817VUQ recommended reference rangeRandom Glucose Reference Range is dependent on time and content of last meal. Glucose of more than 200 mg/dL in a nonstressed, ambulatory subject supports the diagnosisof Diabetes Mellitus.[facility] [id number] [address] [facility] 48[address]Dtqvt Urea NitrogenOctober 2024 9:59amOctober 2024 1:14pm22 mg/dL7-25[facility] [id number] [address] [facility] [address]IbhsqkgfajYhnsdoa 2024 9:59amOctober 2024 1:14pm 0.75 mg/dL0.60-1.20[facility] [id number] [address] [facility] 19131Qgaoiymip GFR (CKD-EPI)December 06, 2024 9:59amOctober 2024 1:14pm> 60.0 mL/MinTrinity Health System Ctr [id number] [address] [facility] [address]Wyilci LevelOctober 2024 9:59amOctober 2024 1:14pm 142 mmol/Y512-445YavwyypudTrinity Health System Ctr [id number] [address] [facility] [address]Mfhkiuxxc LevelOctober 2024 9:59amOctober 2024 1:14pm3.9 mmol/L3.5-5.1FMercy Health Will[facility] [id number] [address] [facility] [address]Kjgrnwzh LevelOctober 2024 9:59amOctober 2024 1:91wi438 mmol/O04-113SluqziyakTrinity Health System Ctr [id number] [address] [facility] [address]Wabvqf Dioxide LevelOctober 2024 9:59amOctober 2024 1:14pm35.8 mmol/LAbove high lcgeqy74.0-31.0[facility] [id number] [address] [facility] [address]Pnbhi GapOctober 2024 9:59amOctober 2024 1:14pm8.1 mEq/L6.0-15.0[facility] [id number] [address] [place] [address]Gwusggb LevelOctober 2024 9:59amOctober 2024 1:14pm 9.0 mg/dL8.6-10.3FMercy Health Willard [facility] [id number] [address] [place] [address] 10[address]Uemuoyakh LevelOctober 2024 9:59amOctober 2024 1:14pm1.9 mg/dL1.9-2.7FMercy Health Will[facility] [id number] [address] [facility] [address]Uwmyk ProteinOctober 2024 9:59amOctober 2024 1:14pm 5.6 g/dLBelow low normal6.4-8.9[facility] [id number] [address] [facility] [address]AkftuqiNjxltjl 2024 9:59amOctober 2024 1:14pm3.5 g/dL3.5-5.7FMercy Health Will[facility] [id number] [address] [place] [address]XeeinrmdLojcuks 2024 9:59amOctober 2024 1:14pm2.1 g/dLTrinity Health System Ctr [id number] [address] [facility] 555[address]Tsxlnua/Globulin RatioOctober 2024 9:59amOctober 2024 1:14pm1.7FMercy Health Willard [facility] [id number] [address] [facility] [address]Toiug BilirubinOctober 2024 9:59amOctober 2024 1:14pm0.5 mg/dL0.3-1.0[facility] [id number] [address] [facility] [address]Vbplqihmc Amino Transf (AST/SGOT)December 06, 2024 9:59am December 06, 2024 1:14pm12 U/LBelow low mtkehz41-28ZodehcprkTrinity Health System Ctr [id number] [address] [facility] [address]Pcyyeso Aminotransferase (ALT/SGPT)December 06, 2024 9:59am December 06, 2024 1:14pm5 U/LBelow low normal7-52[facility] [id number] [address] [facility] 89[address]Rjfiboqb PhosphataseOctober 2024 9:59amOctober 2024 1:14pm89 U/Z16-549IjbtfknktTrinity Health System Ctr [id number] [address] [facility] [id number]-Rdyardx Vitamin D TotalOct2024 9:59amOctober 2024 1:41pm59.7 ng/fY82-404MGRNINJ D STATUS 25(OH)VITAMIN D RANGE (ng/mL) Deficient <20 Insufficient 20 to <23Sakicbximq33 to 100Reference: Calvin MF,Hoang NC, Ryan MARTIN, et al. Evaluation,treatment, and prevention of vitamin D deficiency; an Endocrine Society clinical practice guideline. JCEM. 2010; 96(7):1911-30.[facility] [id number] [address] [facility] [address]Vrbswbfn Creatinine Clearance (ChemOctober 2024 9:59am December 06, 2024 1:14pmN/[facility] [id number] [address] [facility] [address] Vital Signs Vital Reading Result Reference Range Collection Date/Time Height 59 [in_i] November 27, 2024 10:51neAtpiwn85.35 kgOctober 2024 10:15amHeart Rate89 /wwz77-924RafrqrkNovember 27, 2024 10:15amOxygen saturation by Pulse ojdsqdao87 %95-100 November 27, 2024 10:15amBP Ufstlckz177 mm[Hg]100-140November 27, 2024 10:15amBP Maumkwvvg07 mm[Hg]60-100November 27, 2024 10:15amBMI (Body Mass Index)20.2 kg/q3Bshxigd 2024 10:20riKdxapo18 [in_i]December 06, 2024 9:04amWeight 46.72 kgOctober 2024 9:04amHeart Hytl578 /maa13-020CglkjjoDecember 06, 2024 9:04amOxygen saturation by Pulse nfvysbej18 %95-100December 06, 2024 9:53amBP Dcfmymsk466 mm[Hg]100-140December 06, 2024 9:53amBP Sjtdnvmrd91 mm[Hg]60-100 December 06, 2024 9:53amBMI (Body Mass Index)20.7 kg/o5Fxidrfv 2024 9:31kaOyjfih66 [in_i]December 21, 2024 9:43lsLbbemp31.53 kgNovober 2024 9:29amHeart Rate83 /xtl95-833RyzvrulDecember 21, 2024 10:02amOxygen saturation by Pulse jhgrylli58 %95-100December 21, 2024 10:02amBP Ldbzupjh005 mm[Hg]100-140 December 21, 2024 10:02amBP Nkkpkdcpb96 mm[Hg]60-100Oct2024 10:02am BMI (Body Mass Index)21.6 kg/n6Xmajjzj 2024 9:29am Advance Directives Advance Directive Response Recorded Date/ Time Advance Directives No January 5:46pm Insurance Providers Guarantor Gadiel Jesus [address] [facility] [address]Hiioxz[place] Info.Home Phone: Payer Group Member ID Coverage Type Subscriber Relationship to Subscriber Effective Date Expiration Date Medicare Id: [id number] Stys , M Id: [id number] [address] [place] [address] Home Phone: Email: [email or web address] Encounters Encounter Location(s) Arrival/Admit Date Discharge/Departure Date Discharge/Departure Disposition Provider(s) Departed Physician/ Provider Office Visit -[facility] Family Medicine November 27, 2024 10:13am November 27, 2024 11:21am Discharged to home care or self care (routine discharge) Katie Salas DO Departed Physician/ Provider Office Visit -[facility] Family Medicine December 06, 2024 8:52am December 06, 2024 10:05am Discharged to home care or self care (routine discharge) Gadiel Diaz APRN Departed Clinical -[place] December 06, 2024 9:59am December 06, 2024 10:00am Discharged to home care or self care (routine discharge) Gadiel Diaz APRN Departed Physician/ Provider Office Visit -[facility] Family Medicine December 21, 2024 9:16am December 21, 2024 10:14am Discharged to home care or self care (routine discharge) Gadiel Diaz APRN Recent Diagnosis Onset Date Admit Date Rash Unknown November 27 10:13am Constipation Unknown December 06 8:52am Non-ST elevated myocardial i nfarction (non-STEMI) Unknown December 06, 2024 8:52am Primary hypertension Unknown November 8:52am Status post left hip replacement Unknown December 06, 2024 8:52am Transition of care Unknown December 06, 2024 8:52am COPD (chronic obstructive pulmonary disease) Unk nown December 06, 2024 8:52am Assessments Diagnosis Onset Date Resolution Status Admit Date Rash noneactiveNovember 27, 2024 10:13amConstipationacuteOctober 2024 8:52am Non-ST elevated myocardial infarction (non-STEMI)acuteOctober 2024 8:52am Primary hypertensionacuteOctober 2024 8:52amStatus post left hip replacementacuteOctober 2024 8:52amTransition of careacuteOctober 2024 8:52amCOPD (chronic obstructive pulmonary disease)chronicOctober 2024 8:52am Plan of Treatment Author Mallory Keyanna [facility] HospitalAuthoredOctober 2024 2:07pmTrelegy was not covered, pt is on Symbicort every 12 hrs and tolerating well. Has follow up with Pulmonary. We discussed COPD causes, signs of worsening symptoms. We discussed smoking status and importance to remain tobacco free. We reviewed signs and symptoms of COPD exacerbations. A frequent cough, may be symptom of chronic bronchitis and COPD, a cough that lasts at least 3 months a year for 2 consecutive years is the primary symptom of chronic bronchitis. Cough with mucus (phlegm). Its normal to cough up mucus sometimes. But a continuously productive cough or a cough that regularly brings up mucus can be a symptom of COPD exacerbation. The inability to maintain activity levels due to fatigue or shortness of breath. and you may notice that you rest much more than in the past. A blue-tinge to the lips or fingernail area indicates a serious lack of adequate oxygen in the blood and can be a symptom of COPD. Chronic bronchitis (one of the diseases that make up COPD) causes excess mucus production in the airways. That excess mucus makes the body prone to upper respiratory infections. At the first sign of these symptoms it is important to make an appointment with your physician. BP mildly elevated on arrival and stable after resting. Amlodipine 5 mg and Metoprolol 25 mg daily. Will continue same medications today. Prior to your visit today your chart was reviewed and a pre-visit plan was discussed to assist in you reaching treatment goals. We made recommendations based on this plan to lower your risks of hypertensive complications. These possible complications were discussed and including stroke, heart attack, and kidney disease. Advised on symptoms of heart attack and stroke. Advised if symptoms of headache, numbness, tingling, SOB, palpitations, chest pain, blurred vision or weakness develop to go immediately to ER to be evaluated. Your goal is a systolic BP 135 or less and diastolic of 85 or less. Your plan includes medications as discussed at your visit. We discussed medication mechanism of action, potential side effects, and dosing instructions. Your questions were answered. We discussed proper diet and weight loss, and its importance for blood pressure control. You aided in setting and voiced understanding of our treatment goals and agree to give every effort to achieve these goals, and are confident of success. The patient is seeing a medical cost consultant for this condition, treatment is deferred to that specialist. Correspondence will be reviewed.Following with [facility] Cardiology in [place]. To have follow up Lexiscan Stress Test. The patient is seeing a medical cost consultant for this condition, treatment is deferred to that specialist. Correspondence will be reviewed. Encouraged to be as active as possible to help with intestinal motility. Recommend good water intake/hydration and fiber in diet, reviewed sources such as vegetables and fruits and nuts as well as over the counter /supplements. Encouraged to have a fiber snack daily to maintain good motility. Reviewed the use of MiraLAX as needed to relieve symptoms or to maintain regular BM, advised on how this medication promotes motility. Limit or avoid laxative use. Call if no relief as other options may be available. Continue Colace as needed. Reviewed all medical records, lab results and consult notes from recent hospitalization. Reconciled all medications. Discussed ongoing needs post discharge including, home health, PT, and OT. Provided support and reassurance. Stressed importance of keeping all follow up appointments with specialists. Author Katie Salas [facility] HospitalAuthoredOctober 2024 12:01pmPatient with 1 to 2 months with a rash on her buttock region. This is pruritic in nature. Denies pain, fevers, chills, drainage, open wound. Denies any spreading of lesions. The area is erythematous with some flaking. She has tried at home rksm-eva-wqjegmx cortisone cream with no improvement. Patient was recently hospitalized with limited physical activity. Discussed that this could be secondary to skin breakdown from inactivity. She is working with therapy and is more active now. Encouraged her to avoid prolonged periods of sitting/lying, as tolerated. She states the area is pruritic and has not gotten any worse. Given the location, will trial antifungal with steroid cream. Patient is to schedule an appointment with her PCP for hospital follow-up and can follow-up on rash at that time or sooner if needed.Counseled on return precautions. Future Tests Future scheduled test information is unavailable Pending Tests Pending diagnostic test information is unavailable Future Visits Future appointment information is unavailable Future Procedures Future procedure information is unavailable Future Medications Future medication information is unavailable Patient Instructions Patient instructions are unavailable Hospital Discharge Instructions Ambulatory Orders* Referral to [place] Health ([facility] Time Frame: 12/21/24, Location: None Selected
--- NOTE | 2024-12-22 | NM_ITS ---
Patient Name: NAA BECKETT MR#: [id number] : 1940 Exam Date: 12/22/2024 Ordering Doctor: ROGER [facility]ILLALOB[facility] RAD[facility]OLOG[facility] REPORT PROCEDURE: NM TATIANA PERF SPECT REST STR COMPARISON: None. INDICATIONS: NSTEMI (non-ST elevated myocardial infarction) TECHNIQUE: Exam Description: Stress/Rest one day protocol gated SPECT Rest Imagin.9 mCi Tc-99m Cardiolite IV on 12/22/2024 Stress Imaging 30.2 mCi Tc-99m Cardiolite IV on 12/22/2024 Exercise Protocol: 0.4 mg Lexiscan given IV Heart Rate (bpm): Rest: 80 Max: 97 PMHR: 72 Blood Pressure: Rest: 164/90 Max: 175/71 Symptoms: Rest and peak stress ECG findings were pending and the EKG portion of the study was pending per attending physician [facility] . For more details please see separate cardiac stress test report. FINDINGS: QUALITY OF STUDY: Good PERFUSION DEFECT: LOCATION: Inferolateral SIZE: Small SEVERITY: Mild TYPE: Fixed with adequate contractility and thickening consistent with soft tissue attenuation WALL MOTION: Normal LV SIZE: 61 mL. TID / TCD: 0.8 LVEF: Calculated EF 71%. SUMMARY: Normal myocardial perfusion imaging study CONCLUSION: Normal myocardial perfusion stress images without evidence of ischemia or infarction Normal left ventricular systolic function, ejection fraction 71% No transient ischemic dilatation, TID 0.8 EKG portion of the stress test is reported separately Dictated by: Ivelisse Cantor MD on 12/22/2024 at 14:03 Approved by: Ivelisse Cantor MD on 12/22/2024 at 14:07
--- OUTSIDE RECORDS SUMMARY | 2024-12-22 09:07 | XMS_ITS | Clinical Summary ---
Author Organization [facility] Address [address] [place] [address] Phone Care Team Providers Care Sprue Knocker Name Role Phone Loly Quintana Primary Care Provid er Social History Tobacco UseTypesPacks/DayYears UsedDateSmoking Tobacco: Never Assessed CommentsUnknownSex and Gender InformationValueDate RecordedSex Assigned at Not on fileLegal ToqAzgmpc40/25/2022 4:01 PM ESTGender IdentityNot on fileSexual OrientationNot on file Plan of Treatment Not on file Care Teams Team MemberRelationshipSpecialtyStart DateEnd Date Loly Quintana APRN-CNP [address] [facility] [place] [address] PCP - General06/17/18
--- OUTSIDE RECORDS SUMMARY | 2024-12-22 09:07 | XMS_ITS | Clinical Summary ---
Author Organization [facility] Address [address] [place] [address] Care Team Providers Care Hydroelectric Systems Technician Name Role Phone Mallory Briceño Gadiel REFRACTORY FURNACE DESIGNER Unavailable Justin Becerra MD Unavailable [phone] Unallocated, Noms Provider MD Primary Care Provi venecia Allergies No known active allergies Medications MedicationSigDispense QuantityRefillsLast FilledStart DateEnd DateStatus oxybutynin (Ditropan) 5 MG tablet 10/13/2023ctive aspirin 81 MG EC tablet 04/19/2023ctive atorvastatin (Lipitor) 40 MG tablet 04/19/2023ctive albuterol (2.5 MG/3ML) 0.083% nebulizer solution 04/19/2023ctive amLODIPine (Norvasc) 5 MG tablet 04/19/2023ctive oxygen (O2) gas 10/12/2023ctive Lidocaine 4 % patch Apply topicallyActive allopurinol (Zyloprim) 300 MG tablet Take 300 mg by mouth in the morning.Active Calcium Carbonate (CALCIUM 500 PO) Take by mouthActive bisacodyl (Dulcolax) 10 MG suppository Insert into the rectumActive DULoxetine (Cymbalta) [address] capsule Take 30 mg by mouth in the morning and 30 mg before bedtime. Do not crush or chew.Active Vitamin D, Ergocalciferol, 21937 units capsule Take by mouthActive bisacodyl (Fleet Bisacodyl) 10 MG/30ML enema Insert 10 mg into the rectum 1 (one) timeActive Fluticasone-Salmeterol 250-50 MCG/ACT aerosol powder InhaleActive metoprolol succinate XL (Toprol-XL) 25 MG 24 hr tablet Take by mouth Do not crush or chew.Active magnesium hydroxide (Milk of Magnesia) 400 MG/5ML suspension Take by mouth at bedtimeActive sennosides (Senokot) 8.6 MG tablet Take 1 tablet by mouth DailyActive VITAMIN D PO Take by mouthActive Active Problems ProblemNoted DateDiagnosed DateCallus of foot12/16/2023OPD (chronic obstructive pulmonary disease)12/16/20236155Mmnntkuzzyovuqz48/24/2024History of right-sided carotid eavedxwvwjeosn24/24/2024Myocardial /24/2024Neuropathy 12/16/2023Occlusion and stenosis of bilateral carotid tiumxyna89/24/2024 Ofiydadysryo15/24/2024eripheral artery rjvjpdh8212/16/2023ulmonary hypertension 12/16/2023arotid artery occlusion without vsdeclrvps51/10/2009Mixed kdrrtociiegnmg96/10/2009Chronic ischemic heart snyapqd0608/01/2008Primary /10/2009 Encounters DateTypeDepartmentCare OyptLfhsmlpzkuw31/08/2025 2:35 PM EDTAncillary Procedure [facility] [address] [place] [address] 10/30/2024 1:45 PM EDTOffice Visit [facility] [facility] [address] [place] [id number] Clint King PA Left shoulder strain, initial encounter (Primary Dx)10/30/2024amboo flowsheet [facility] [address] [place] [id number] Clint King PA 10/30/20247983Qisthi30/07/2025Travelfrom Last 3 Months Family History Medical HistoryRelationNameCommentsHodgkin's lymphomaFatherTuberculosisMother DiabetesMother's SisterMae ptakRelationNameStatusCommentsFatherDeceasedMother DeceasedMother's SisterMae ptak Social History Tobacco UseTypesPacks/DayYears UsedDateSmoking Tobacco: WmneysNgphmtakzt032 02/22/1959 - 02/22/2005Passive Smoke Exposure: YesSmokeless Tobacco: Never Tobacco Cessation:Counseling Given: Not Answered Alcohol UseStandard Drinks/WeekCommentsNever0 (1 standard drink = 0.6 oz pure alcohol)CommentsUnknownSex and Gender InformationValueDate RecordedSex Assigned at BirthNot on fileLegal YijLbwteh04/15/2023 6:54 PM EDTGender Identity Not on fileSexual OrientationNot on file Last Filed Vital Signs Vital SignReadingTime TakenCommentsBlood Vfyxkexa397/70005/04/2024 9:22 AM EDT Pulse--Temperature--Respiratory Rate--Oxygen Saturation--Inhaled Oxygen Concentration--Jovhof41.2 kg (124 lb)10/30/2024 1:56 PM FAXCkswkz889.9 cm (4' 11 )10/30/2024 1:56 PM EDTBody Mass Index25.04010/30/2024 1:56 PM EDT Plan of Treatment Health MaintenanceDue DateLast DoneCommentsMedicare Annual Wellness (AWV) 1940Influenza Vaccine (#1)5011/16/2023, 12/15/2022, 11/23/2022, Additional history existsPneumococcal Vaccine: 65+ IantiRngjuargg69/13/2017, 11/20/2011, 11/20/2011 Procedures Procedure NamePriorityDate/TimeAssociated DiagnosisCommentsXR SHOULDER 2+ VIEWS ZGKNBtrfayf38/08/2025 2:34 PM EDT Left shoulder strain, initial encounter from Last 3 Months Results * XR shoulder 2+ views left (10/30/2024 2:34 PM EDT)Anatomical RegionLaterality ModalityUpper Extremities, ShoulderLeftRadiographic ImagingSpecimen (Source) Anatomical Location / LateralityCollection Method / VolumeCollection Time Received Time Narrative 10/30/2024 2:59 PM EDT Imaging Result: ??AP Grashey and scapular Y-view as well as axillary taken in the office today demonstrating no acute fracture or evidence of dislocation. ??AC joint arthritic findings noted. Authorizing ProviderResult TypeResult StatusTodd D Benedict PAIMG XR PROCEDURES Final Result from Last 3 Months Insurance Care Teams Team MemberRelationshipSpecialtyStart DateEnd Date Unallocated, Noms MD [address] [place] [address] PCP - GeneralFamily Medicine10/30/24 Mallory Briceño NP Nurse PractitionerFamily Wcyujnoi07/25/24 Justin Becerra MD Referring DdsmzhbneCafdefqsz44/10/24
--- OUTSIDE RECORDS SUMMARY | 2024-12-22 09:08 | XMS_ITS | Clinical Summary ---
Author Organization [facility] Address [address] [place] [address] Care Team Providers Care Water Treatment Operator Name Role Phone Nunu Briceño CNP Primary Care Provider [phone] Allergies No known active allergies Medications MedicationSigDispense QuantityRefillsLast FilledStart DateEnd DateStatus amLODIPine (Norvasc) 5 mg tablet Take 5 mg by mouth in the morning.Active oxyBUTYnin (Ditropan) 5 mg tablet Take 5 mg by mouth two times daily.Active atorvastatin (Lipitor) 40 mg tablet Take 40 mg by mouth in the morning.Active allopurinol (Zyloprim) 300 mg tablet Take 300 mg by mouth in the morning.Active metoprolol succinate XL (Toprol-XL) 25 mg 24 hr tablet Indications:Closed left hip fracture, initial encounter (CMS/HCC)Take 1 tablet (25 mg) by mouth in the morning. Do not crush or chew.5Active aspirin 81 mg chewable tablet Indications:Closed left hip fracture, initial encounter (CMS/[facility])Chew 1 tablet (81 mg) two times daily for 96 doses.51Expired Active Problems ProblemNoted DateDiagnosed IngqGafvdjvu04/21/2025Restless legs syndrome 12/12/2024Traumatic closed trochanteric fracture of femur with minimal displacement, left, initial yzvshcwuo81/22/2025 Assessment & Plan (10/13/2024 6:54 AM EDT): [...] above Based on review of chart in [facility] patient had high MMA level and low vitamin B12 would recommend IV B12 supplement Bilateral carotid artery occlusive disease would recommend postop once stable start aspirin and statin History of coronary artery disease as above Thank you for the consult Charisma received have oh Orders from past 72 hours: Case Request Operating Room: INSERTION, INTRAMEDULLARY CORTES, FEMUR, RETROGRADE; Standing Mixed simple and mucopurulent chronic bwbsjyhjug01/22/2025Primary hypertension 10/13/2024arotid artery mfqmwxzo39/22/2025OPD (chronic obstructive pulmonary disease)10/13/2024losed left hip fracture, initial lacyzajmi28/21/2025 Kpzawrbkwmtawsc37/24/2024allus of foot12/16/2023History of right-sided carotid pzmegvbfygcvzc87/24/7970Fxdxdiwqvb43/24/2024Occlusion and stenosis of bilateral carotid oanahvwm66/24/8188Xbkdwuktuxso09/24/2024eripheral artery disease 12/16/2023ulmonary tfzajpqyrmvi96/24/2024erebral aneurysm, nonruptured 04/06/20130750Dapxmrra72/15/2013Carotid artery occlusion without infarction 08/01/2008Chronic ischemic heart mlezqmi0008/01/2008Mixed wgbyvvthokcaxl29/10/2009 Encounters DateTypeDepartmentCare DzqcKuucunjqjoa66/14/2025 10:20 AM EDTFollow-Up [facility] [address] [place] [address] [place] [address] Loco Pardo MD Closed displaced intertrochanteric fracture of left femur with routine healing, subsequent encounter (Primary Dx)12/05/2024 9:17 AM EDT - 12/05/2024 11:59 PM EDTHospital Encounter [facility] [address] [place] [address] [place] [address] Closed displaced intertrochanteric fracture of left femur with routine healing, subsequent encounter Discharge Disposition: Home or Self Care (01)11/09/2024Orders Only [facility] [address] [place] [address] Arsalan Ramos MD 11/08/2024 2:00 PM EDTOffice Visit [facility] [address] [place] [address] Arsalan Ramos MD NSTEMI (non-ST elevated myocardial infarction) (CMS/HCC) (Primary Dx); Chronic ischemic heart fqeusrc5011/08/2024Orders Only [facility] [address] [place] [address] Ritika Arana MA NSTEMI (non-ST elevated myocardial infarction) (CMS/HCC) (Primary Dx)10/31/2024 9:40 AM EDTOffice Visit [facility] Orthopaedic[address] [place] [address] Loco Pardo MD Closed displaced intertrochanteric fracture of left femur with routine healing, subsequent encounter (Primary Dx)10/24/2024Telephone [address] [place] [address] Angela Anderson MA 10/13/2024 3:40 PM EDT - 10/13/2024 6:18 PM EDTSurgery [facility] Main Operating Room [address] [place] [address] Loco Pardo MD INSERTION, INTRAMEDULLARY CORTES, FEMUR, PYOIQOCPY30/22/2025 3:20 PM EDTAnesthesia Event [facility] Main Operating Room [address] [place] [address] Srinivas Collins MD Clemes, Raymond, MD 10/13/2024 12:39 AM EDT - 10/20/2024 8:11 AM EDTHospital Encounter [facility] 5ABCD Surgery Stepdown [address] [place] [address] Justin Bennett MD Oweis, Thomas D, MD Closed left hip fracture, initial encounter ([facility]) (Primary Dx); Traumatic closed trochanteric fracture of femur with minimal displacement, left, initial encounter ([facility]); Pain; Chest pain Discharge Disposition: Custodial Facility (03)10/13/2024Travelfrom Last 3 Months Family History RelationNameStatusCommentsFatherDeceasedMotherDeceased Social History Tobacco UseTypesPacks/DayYears UsedDateSmoking Tobacco: FormerCigarettes Smokeless Tobacco: Never Tobacco Cessation:Counseling Given: Not Answered Alcohol UseStandard Drinks/WeekCommentsNever0 (1 standard drink = 0.6 oz pure alcohol)[facility] UtilitiesAnswerDate RecordedIn the past 12 months has the [employer], gas, oil, or water cloudswave threatened to shut off services in your home?No 10/13/2024Humiliation, Afraid, Rape, and Kick questionnaireAnswerDate Recorded Within the last year, have you been afraid of your partner or ex-partner?No 10/13/2024Within the last year, have you been humiliated or emotionally abused in other ways by your partner or ex-partner?No10/13/2024Within the last year, have you been kicked, hit, slapped, or otherwise physically hurt by your partner or ex-partner?No10/13/2024Within the last year, have you been raped or forced to have any kind of sexual activity by your partner or ex-partner?No10/13/2024 Social Connection and Isolation Panel [NHANES]AnswerDate RecordedIn a typical week, how many times do you talk on the phone with family, friends, or neighbors?More than three times a week10/13/2024How often do you get together with friends or relatives?More than three times a week10/13/2024How often do you attend rastafarian or temple services?More than 4 times per year10/13/2024Do you belong to any clubs or organizations such as rastafarian groups, unions, fraternal or athletic groups, or school groups?No10/13/2024How often do you attend meetings of the clubs or organizations you belong to?Never08/22/2025Are you , , , , never , or living with a partner? 10/13/2024UDIT-CAnswerDate RecordedQ1: How often do you have a drink containing alcohol?Never10/13/2024Q2: How many drinks containing alcohol do you have on a typical day when you are drinking?Patient does not drink10/13/2024Q3: How often do you have six or more drinks on one occasion?Never10/13/2024Overall Financial Resource Strain (CARDIA)AnswerDate RecordedHow hard is it for you to pay for the very basics like food, housing, medical care, and heating?Not hard at all 10/13/2024PHQ-2AnswerDate RecordedPatient Health Questionnaire-2 Score0 12/05/2024[facility] - Occupational Stress QuestionnaireAnswerDate RecordedDo you feel stress - tense, restless, nervous, or anxious, or unable to sleep at night because yourmind is troubled all the time - these days?Not at all10/13/2024TransportationAnswerDate RecordedIn the past 12 months, has lack of transportation kept you from medical appointments or from getting medications?No10/13/2024In the past 12 months, has lack of transportation kept you from meetings, work, or from getting things needed for daily living?No10/13/2024Housing Stability Vital SignAnswerDate RecordedIn the last 12 months, was there a time when you were not able to pay the mortgage or rent on time?No10/13/2024In the past 12 months, how many times have you moved where you were living?t any time in the past 12 months, were you homeless or living in a custodial (including now)?No10/13/2024Hunger Vital Sign AnswerDate RecordedWithin the past 12 months, you worried that your food would run out before you got the money to buymore.Never true10/13/2024Within the past 12 months, the food you bought just didn't last and you didn't have money to get more.Never true10/13/2024CommentsUnknownSex and Gender InformationValue Date RecordedSex Assigned at TbrouYqyqdh88/22/2025 3:24 AM EDTLegal SexFemale 10/12/2024 10:14 PM EDTGender AjsrwdzyZzieat39/22/2025 3:24 AM EDTSexual OrientationChoose not to xfvljnre22/22/2025 3:24 AM EDT Last Filed Vital Signs Vital SignReadingTime TakenCommentsBlood Hlidgsnd257/7109 2:16 PM EDT Msjzo155611/08/2024 2:16 PM VSQAonsommqgkd78.6 ??C (97.9 ??F)10/20/2024 7:53 AM EDTRespiratory Czqd216110/20/2024 7:53 AM EDTOxygen Jezyfzqtqm66%11/08/2024 2:16 PM EDT3 lpm o2 via n/cInhaled Oxygen Concentration--Zvukbi96.6 kg (105 lb) 12/05/2024 10:07 AM QRFZhaomc131.9 cm (5' 1 )12/05/2024 10:07 AM EDTBody Mass Index19.8412/05/2024 10:07 AM EDT Plan of Treatment Health MaintenanceDue DateLast DoneCommentsMedicare Annual Wellness (AWV) 1938COVID-19 Vaccine ( season), 01/19/2023, 11/21/2021, Additional history existsInfluenza Vaccine (#1)10/23/2024 11/16/2023, 12/15/2022, 11/23/2022, Additional history existsDepression Yqmpadgeo33Fall Risk Vqswbrrkc40dult Wggmlcy71Pneumococcal Vaccine: 50+ HasbyJkbsiakbc64/13/2017, 11/20/2011, 11/20/2011Zoster NzpwkqizOccajgztw39/15/2024, 01/06/2023HIB Vaccines Aged OutNo longer eligible based on patient's age to complete this topicHPV VaccinesAged OutNo longer eligible based on patient's age to complete this topic IPV VaccinesAged OutNo longer eligible based on patient's age to complete this topicMeningococcal B VaccineAged OutNo longer eligible based on patient's age to complete this topicMeningococcal VaccineAged OutNo longer eligible based on patient's age to complete this topicRotavirus VaccinesAged OutNo longer eligible based on patient's age to complete this topic Medical Devices ImplantedTypeAreaManufacturerDevice IdentifierShelf Expiration DateModel / Serial / LotGamma 4 Long Nail Left Implanted:Qty: 1 on 10/13/2024 by [facility] Health: Elt [id number] / / [id number] 4 Lag Screw Implanted:Qty: 1 on 10/13/2024 [facility]: [id number] / / [id number],Bone,Locking,T2,5x47.5mm - [id number] Implanted:Qty: 1 on 10/13/2024 by [facility]Left: [employer], [id number]/31/[id number] / / [id number],Bone,Locking,T2,5x47.5mm - [id number] Implanted:Qty: 1 on 10/13/2024 by [facility]: [employer], [id number] / / [id number] Procedures Procedure NamePriorityDate/TimeAssociated DiagnosisCommentsXR FEMUR 2+ VW LEFT Euslhxq1712/05/2024 9:37 AM EDT Closed displaced intertrochanteric fracture of left femur with routine healing, subsequent encounter HIGH SENSITIVITY TROPONIN QLotuaae18/18/2025 8:37 AM EDTPRO-MYYPeywdhr69/18/2025 8:37 AM EDTBASIC METABOLIC PANELPending Julhhthjr59/29/2025 4:32 AM EDT PHOSPHORUSPending Uwhdmevbw19/29/2025 4:32 AM EDT MAGNESIUMPending Hxdxznfpi98/29/2025 4:32 AM EDT CBCPending Idpwknzsq07/29/2025 4:32 AM EDT XR CHEST 1 HBMPWntskzr99/28/2025 6:53 AM EDT BASIC METABOLIC PANELPending Yamslljwj51/28/2025 6:11 AM EDT PHOSPHORUSPending Lmvhtklsu87/28/2025 6:11 AM EDT MAGNESIUMPending Xndpxtlts17/28/2025 6:11 AM EDT CBCPending Soawzbrsq19/28/2025 6:11 AM EDT ECG 12-FTYDYqfowzb07/27/2025 12:19 PM EDT XR CHEST 1 QGSTQoqmwiq57/27/2025 7:16 AM EDT BASIC METABOLIC ICKJJTnloqns85/27/2025 5:31 AM EDT WMTNUJLRBAVezuygj94/27/2025 5:31 AM EDT HRTPMYLTRTvxgbxj46/27/2025 5:31 AM EDT ZVEGgmnttm78/27/2025 5:31 AM EDT MAGNESIUMPending Rbptflrpj67/26/2025 3:49 PM EDT BASIC METABOLIC PANELPending Uflhkwqer66/26/2025 3:49 PM EDT XR CHEST 1 LEIMEsmyggw10/26/2025 7:00 AM EDT BASIC METABOLIC PANELPending Hknlyjvaw33/26/2025 6:07 AM EDT PHOSPHORUSPending Gtzvatppj26/26/2025 6:07 AM EDT MAGNESIUMPending Plcygjuzh54/26/2025 6:07 AM EDT CBCPending Nairqszna91/26/2025 6:07 AM EDT BASIC METABOLIC PANELPending Teiyjxynd71/26/2025 12:06 AM EDT BASIC METABOLIC PANELPending Tacqwdwjx02/25/2025 4:17 PM EDT LIMITED ECHOCARDIOGRAM (TTE) W/ LTD DOPPLER AND COLOR QCWEGtfscdn00/25/2025 2:53 PM EDT HIGH SENSITIVITY TROPONIN IPending Mvvvmmsba19/25/2025 12:12 PM EDT XR CHEST 1 PQXIBDJR94/25/2025 9:48 AM EDT ECG 12-FMTXKETV29/25/2025 9:35 AM EDT Chest pain POCT GLUCOSE METER UNSOLICITED RJMQPXXXeozynw83/25/2025 9:10 AM EDT HIGH SENSITIVITY TROPONIN IAdd-On10/16/2024 5:16 AM EDT PHOSPHORUSPending Xcktntrtt32/25/2025 5:16 AM EDT MAGNESIUMPending Mujvbjbgx61/25/2025 5:16 AM EDT BASIC METABOLIC PANELPending Arncbalev59/25/2025 5:16 AM EDT CBCPending Vhtltywrd38/25/2025 5:16 AM EDT HIGH SENSITIVITY TROPONIN ISTAT Add-on10/15/2024 11:05 AM EDT LACTIC ACID WITH 4 HOUR DQYIHKTcjeglx86/24/2025 11:05 AM EDT AZLPUGBNSZIyecfws35/24/2025 11:05 AM EDT IENTRJGJDCrfditw01/24/2025 11:05 AM EDT BASIC METABOLIC MBCKHVdlltcd75/24/2025 11:05 AM EDT XRIOogucta52/24/2025 11:05 AM EDT VRTOWBZYJFGsxfksp77/24/2025 6:37 AM EDT ZOOJELIDFSfnctni71/24/2025 6:37 AM EDT BASIC METABOLIC QQBZDAuxdnyz29/24/2025 6:37 AM EDT IVWAzssmwt50/24/2025 6:37 AM EDT TRANSFUSE RED BLOOD ZDWOJSMZL46/24/2025 12:26 AM EDTECG 12-CCLIIWUR09/24/2025 12:11 AM EDT HEMOGLOBIN AND HEMATOCRIT, UGVIMSzcixuf45/23/2025 8:21 PM EDT TRANSFUSE RED BLOOD EAMOYOKNU64/23/2025 4:41 PM EDTPOCT GLUCOSE METER UNSOLICITED GORRMOIIbkwaqc40/23/2025 3:54 PM EDT CALCIUM, ZGNRZGUUlyiwdw90/23/2025 1:00 PM EDT BASIC METABOLIC FOJFSXmbdcge95/23/2025 11:58 AM EDT HEMOGLOBIN AND HEMATOCRIT, YHTVYOnmncdb72/23/2025 11:58 AM EDT POCT GLUCOSE METER UNSOLICITED HOFLRBUWbrpdqj84/23/2025 11:57 AM EDT POCT GLUCOSE METER UNSOLICITED TRAOBPMIxfnmoi69/23/2025 11:36 AM EDT POCT GLUCOSE METER UNSOLICITED MFJHDCUVdjzbct34/23/2025 7:31 AM EDT NUZRLBALTFYovlfgr62/23/2025 6:13 AM EDT OZDIIQQRFGtcvzld00/23/2025 6:13 AM EDT ALFKudxmrq61/23/2025 6:13 AM EDT BASIC METABOLIC HIWVPSlazpfz33/23/2025 6:13 AM EDT POCT GLUCOSE METER UNSOLICITED MUXKYUDMcomhbg91/22/2025 11:30 PM EDT XR FEMUR 2+ VW WMXTVJVR26/22/2025 6:07 PM EDT FL LESS THAN 1 HOUR WZAVFCKNLMEFAJWmcyujg97/22/2025 5:24 PM EDT Pain NM AN ELECTIVE ENDOTRACHEAL ZGUCJBPslnfji10/22/2025 3:34 PM EDT INSERTION, INTRAMEDULLARY CORTES, FEMUR, XFCRCVAVJM93/22/2025 3:22 PM EDT Closed left hip fracture, initial encounter (CMS/HCC) Traumatic closed trochanteric fracture of femur with minimal displacement, left, initial encounter (CMS/HCC) POCT GLUCOSE METER UNSOLICITED UXLCKVIYgsjfwk78/22/2025 11:27 AM EDT XR CHEST 1 JTAYExtkrmy85/22/2025 6:47 AM EDT XR CLAVICLE XBBDMbxjswn43/22/2025 6:47 AM EDT VITAMIN D 25 HYDROXYAdd-On10/13/2024 6:18 AM EDT IJVSCQYKFXPhpxgiy78/22/2025 6:18 AM EDT GZEVDHIBEBvqggpg29/22/2025 6:18 AM EDT AGIWunircl57/22/2025 6:18 AM EDT BASIC METABOLIC IUPHBWivzmxs64/22/2025 6:18 AM EDT POCT GLUCOSE METER UNSOLICITED ETFQFXTWzhntng95/22/2025 6:01 AM EDT POCT GLUCOSE METER UNSOLICITED VSXLIQANcitdyk28/22/2025 5:23 AM EDT XR FEMUR 2+ VW DDMSNWWT25/22/2025 4:32 AM EDT MRSA/MSSA DNA NLEDGKoksoyg22/22/2025 4:[address] ABDOMEN PELVIS WO IV MDFEZPRWPopavfi15/22/2025 4:[address] HEAD WO IV YLGICBVWEMVI63/22/2025 4:[address] CERVICAL SPINE WO IV VJPEWWMGGFZE54/22/2025 4:26 AM EDT ECG 12-QZBDVHSO65/22/2025 2:51 AM EDT HIGH SENSITIVITY TROPONIN ISTAT10/13/2024 2:34 AM EDT PREPARE STQBORV8210/13/2024 1:53 AM EDT PREPARE ITPPJTK6310/13/2024 1:53 AM EDT TOXICOLOGY PANEL BHHLNYHRZ64/22/2025 1:21 AM EDT URINALYSIS WITH XOYRWROLIXHRYPP69/22/2025 1:21 AM EDT XR TRANSFER OF OUTSIDE ENTQFXoaizms61/22/2025 1:20 AM EDT CBC WITH AUTO UQGJKGWRONPTJTMY75/22/2025 1:20 AM EDT HIGH SENSITIVITY TROPONIN ISTAT10/13/2024 1:20 AM EDT HEPATIC FUNCTION SNGNZJBED24/22/2025 1:20 AM EDT WZEMXIIYQH20/22/2025 1:20 AM EDT LACTIC ACID, WECYJFBFEU51/22/2025 1:20 AM EDT KKWGAUDKEEP92/22/2025 1:20 AM EDT GTHZXRYR58/22/2025 1:20 AM EDT PROTIME-SPOKTQP3710/13/2024 1:20 AM EDT BASIC METABOLIC KFEWMIRVG63/22/2025 1:20 AM EDT CBC AND JFYBALZXFXRWOGJY68/22/2025 1:20 AM EDT TYPE AND EPAZZTCURS99/22/2025 1:20 AM EDT from Last 3 Months Results * XR femur left 2+ views (12/05/2024 9:37 AM EDT) Only the most recent of3 resultswithin the time period is included. Anatomical RegionLateralityModalityLower Extremities, FemurLeftComputed RadiographySpecimen (Source)Anatomical Location / LateralityCollection Method / VolumeCollection TimeReceived Time12/05/2024 10:47 AM EDT Impressions 12/05/2024 10:49 AM EDT Findings/impression: Fixation hardware is without evidence of complication. Persistent fracture planes with evidence of early callus formation. Distracted lesser trochanter, similar position. Electronically signed: Jose Melchor MD. Narrative 12/05/2024 10:49 AM EDT XR FEMUR 2+ VW LEFT 12/05/2024 9:30 AM CLINICAL INDICATIONS: ??Pain. Postop follow-up COMPARISON: 10/13/2024 Procedure Note Jose Melchor MD - 12/05/2024 XR FEMUR 2+ VW LEFT 12/05/2024 9:30 AM CLINICAL INDICATIONS: Pain. Postop follow-up COMPARISON: 10/13/2024 IMPRESSION: Findings/impression: Fixation hardware is without evidence of complication. Persistentfracture planes with evidence of early callus formation. Distracted lessertrochanter, similar position. Electronically signed: Jose Melchor MD. Authorizing ProviderResult TypeResult Janelle WALLER XR PROCEDURESFinal Result * High Sensitivity Troponin I (11/09/2024 8:37 AM EDT) Only the most recent of6 resultswithin the time period is included. Specimen (Source)Anatomical Location / LateralityCollection Method / Volume Collection TimeReceived TimeBloodVenous blood specimen / Unknown Narrative Authorizing ProviderResult TypeResult [facility] HospitalArsalan DHALIWAL BLOOD ORDERABLESFinal Result * Pro-BNP (11/09/2024 8:37 AM EDT)Specimen (Source)Anatomical Location / LateralityCollection Method / VolumeCollection TimeReceived TimeBloodVenous blood specimen / Unknown Narrative Authorizing ProviderResult TypeResult StatusArsalan Ramos MDWESTERN PLAINS MEDICAL COM[facility] BLOOD ORDERABLESFinal Result * (ABNORMAL) CBC (10/20/2024 4:32 AM EDT) Only the most recent of9 resultswithin the time period is included. ComponentValueRef RangeTest MethodAnalysis TimePerformed AtPathologist Signature Auto WBC5.054.00 - 10.60 10*3/uL10/20/2024 5:35 AM [facility] ([facility]) RBC2.81(L)3.80 - 5.00 10*6/uL10/20/2024 5:35 AM [facility] ([facility]) Hemoglobin8.4(L)12.0 - 15.0 g/dL10/20/2024 5:35 AM [facility] ([facility]) Hhhrkxpseu28.4(L)36.0 - 45.0 %10/20/2024 5:35 AM [facility] ([facility]) MCV94.082.0 - 98.0 fL10/20/2024 5:35 AM [facility] ([facility])MCH29.927.0 - 33.0 pg10/20/2024 5:35 AM [facility] ([facility])MCHC31.8(L)32.0 - 35.0 g/dL10/20/2024 5:35 AM [facility] ([facility])RDW13.311.5 - 15.0 % 10/20/2024 5:35 AM [facility] ([facility])Mugaqerss983800 - 400 10*3/uL 10/20/2024 5:35 AM [facility] ([facility])Specimen (Source)Anatomical Location / LateralityCollection Method / VolumeCollection TimeReceived TimeBlood Venous blood specimen / UnknownVenipuncture / Thlrikr7610/20/2024 4:32 AM EDT 10/20/2024 5:21 AM EDT Narrative Authorizing ProviderResult TypeResult StatusAlbert Ely PA-JUSTINB BLOOD ORDERABLESFinal ResultPerforming OrganizationAddressCity/State/ZIP CodePhone Number [facility] ([facility]) [address] [place] [address] * Phosphorus (10/20/2024 4:32 AM EDT) Only the most recent of9 resultswithin the time period is included. ComponentValueRef RangeTest MethodAnalysis TimePerformed AtPathologist Signature Phosphorus3.62.5 - 5.0 mg/dL10/20/2024 5:44 AM [facility]) Specimen (Source)Anatomical Location / LateralityCollection Method / Volume Collection TimeReceived TimeBloodVenous blood specimen / UnknownVenipuncture / Rdshczu1010/20/2024 4:32 AM EDT10/20/2024 5:21 AM EDT Narrative Authorizing ProviderResult TypeResult StatusAlbert Cliffel PA-CLAB BLOOD ORDERABLESFinal ResultPerforming OrganizationAddressCity/State/ZIP CodePhone Number [facility] ([facility]) [address] [place] [address] * Magnesium (10/20/2024 4:32 AM EDT) Only the most recent of10 resultswithin the time period is included. ComponentValueRef RangeTest MethodAnalysis TimePerformed AtPathologist Signature Magnesium1.91.9 - 2.7 mg/dL10/20/2024 5:44 AM [facility] ([facility]) Specimen (Source)Anatomical Location / LateralityCollection Method / Volume Collection TimeReceived TimeBloodVenous blood specimen / UnknownVenipuncture / Dzkrunq0610/20/2024 4:32 AM EDT10/20/2024 5:21 AM EDT Narrative Authorizing ProviderResult TypeResult StatusAlbert Cliffel PA-CLAB BLOOD ORDERABLESFinal ResultPerforming OrganizationAddressCity/State/ZIP CodePhone Number [facility] ([facility]) [address] [place] [address] * (ABNORMAL) Basic metabolic panel (10/20/2024 4:32 AM EDT) Only the most recent of14 resultswithin the time period is included. ComponentValueRef RangeTest MethodAnalysis TimePerformed AtPathologist Signature Wrfbey661563 - 145 mmol/L10/20/2024 5:46 AM [facility] ([facility]) Potassium4.23.5 - 5.1 mmol/L10/20/2024 5:46 AM [facility] ([facility]) Svdjfeor20(L)98 - 107 mmol/L10/20/2024 5:46 AM [facility] ([facility])CO2 41(HH)21 - 31 mmol/L10/20/2024 5:46 AM [facility] ([facility])BUN31(H)7 - 25 mg/dL10/20/2024 5:46 AM [facility] ([facility])Creatinine0.760.60 - 1.20 mg/dL10/20/2024 5:46 AM [facility] ([facility])Qotdvtd181(H)70 - 100 mg/dL10/20/2024 5:46 AM [facility] ([facility])Calcium8.98.6 - 10.3 mg/dL 10/20/2024 5:46 AM [facility] ([facility])Anion Gap6(L)7 - 20 mmol/L 10/20/2024 5:46 AM [facility] ([facility])eGFR76.7>60.0 mL/min/1.73m*2 10/20/2024 5:46 AM [facility] ([facility])Comment:The [facility]???s estimated glomerular filtration rate (eGFR) will no longer include consideration of race in its calculation. The [employer]???s eGFR Task Force developed new recommendations for the estimation of the glomerular filtration rate in the [place] They recommend immediate implementation of the new equation refit without the race variable in all la boratories because the calculation does not include race. In addition to not including race in the calculation and reporting, it included diversity in its development, and has acceptable performance characteristics and potential consequences that do not disproportionately affect any one group of individuals. BUN/Creatinine Ratio40.8010/20/2024 5:46 AM [facility] ([facility])Specimen (Source)Anatomical Location / LateralityCollection Method / VolumeCollection TimeReceived TimeBloodVenous blood specimen / UnknownVenipuncture / Unknown 10/20/2024 4:32 AM EDT10/20/2024 5:21 AM EDT Narrative Authorizing ProviderResult TypeResult StatusEmily Sherri WALSH BLOOD ORDERABLESFinal ResultPerforming OrganizationAddressCity/State/ZIP CodePhone Number [facility] ([facility]) [address] [place] [address] * XR chest 1 view (10/19/2024 6:53 AM EDT) Only the most recent of5 resultswithin the time period is included. Anatomical RegionLateralityModalityChestComputed RadiographySpecimen (Source) Anatomical Location / LateralityCollection Method / VolumeCollection Time Received Time10/19/2024 7:02 AM EDT Impressions 10/19/2024 7:03 AM [...] Vasculature is stable Electronically signed: Regi Jewell. Authorizing ProviderResult TypeResult StatusEmily Sherri [facility]ENTERKarina XR PROCEDURES Final Result * ECG 12 lead (10/18/2024 12:19 PM EDT) Only the most recent of4 resultswithin the time period is included. ComponentValueRef RangeTest MethodAnalysis TimePerformed AtPathologist Signature Ventricular Nker04PRSIS MUSEAtrial Qbck10AQPKJ MUSEPR Ikmciokv250tsUK MUSEQRS IWKDZSVF55wtJF MUSEQT Mkiogrst002umMC MUSEQTC CALCULATION(BAZETT)425msGE MUSEP Kiog44avhvtrjQG AQLEA-Tdnb-19xofpxwwZY MUSET Wave Pill12zjbbivpSH MUSESpecimen (Source)Anatomical Location / LateralityCollection Method / VolumeCollection TimeReceived Time10/18/2024 12:16 PM EDT10/18/2024 3:05 PM EDT Impressions GE MUSE - 10/18/2024 3:05 PM EDT Sinus rhythm with 1st degree A-V block with Premature atrial complexes Otherwise normal ECG When compared with ECG of 16-OCT-2024 09:21, Previous ECG has undetermined rhythm, needs review Confirmed by Mike YUSUF, AKIN Virk (55) on 10/18/2024 3:05:00 PM Narrative Procedure Note Akin Yusuf MD - 10/18/2024 IMPRESSION: Sinus rhythm with 1st degree A-V block with Premature atrial complexes Otherwise normal ECG When compared with ECG of 16-OCT-2024 09:21, Previous ECG has undetermined rhythm, needs review Confirmed by Mike YUSUF SAMER J. (57) on 10/18/2024 3:05:00 PM Authorizing ProviderResult TypeResult StatusDilia Sena [facility] ORDERABLES Final ResultPerforming OrganizationAddressCity/State/ZIP CodePhone Number GE MUSE * LIMITED ECHOCARDIOGRAM (TTE) W/ LTD DOPPLER AND COLOR FLOW (10/16/2024 2:53 PM EDT)Anatomical RegionLateralityModalityOtherSpecimen (Source)Anatomical Location / LateralityCollection Method / VolumeCollection TimeReceived Time 10/16/2024 2:42 PM EDT Narrative 10/16/2024 4:01 PM EDT 1 1 [facility] Heart Station [address] [phone] (fax) Echocardiogram-[facility] Name: NAA ROYAL Study Date: 10/16/2024 02:42 PM B/P: 131 mmHg/63 mmHg HR: 97 bpm Date of : 1940 Location: [facility] Height: 59 in. Age: 83 year(s) Patient Room: 5152 Weight: 126 lb. Gender: Female Patient Status: [...] No pericardial effusion. Procedure Staff Reading Group: [facility] Referring Physician: ANITHA JEFFERS Fringe Knotter: CLIFFORD Lopez ??Ordering Physician: MECHELLE VELASQUEZ Procedure Note Akin Yusuf MD - 10/16/2024 1 1 [facility] Heart Station [address] [place] [address] [phone] (fax) Echocardiogram-[facility] Name: NAA ROYAL Study Date: 10/16/2024 02:42 PM B/P: 131 mmHg/63 mmHg HR: 97 bpm Date of : 1940 Location: [facility] Height: 59 in. Age: 83 year(s) Patient Room: [facility] Weight: 126 lb. Gender: Female Patient Status: [...] No pericardial effusion. Procedure Staff Reading Group: [facility] Referring Physician: ANITHA JEFFERS Fringe Knotter: Eileen Buchanan [facility] Ordering Physician: MECHELLE VELASQUEZ Authorizing ProviderResult TypeResult StatusMechelle HENSON-CCNik ECHO PROCEDURES Final Result * (ABNORMAL) POCT glucose meter (10/16/2024 9:10 AM EDT) Only the most recent of9 resultswithin the time period is included. ComponentValueRef RangeTest MethodAnalysis TimePerformed AtPathologist Signature Glucose NAH753(H)70 - 105 mg/dL10/16/2024 9:21 AM EDTUN[facility] ([facility]) Comment:sbelcadSpecimen (Source)Anatomical Location / LateralityCollection Method / VolumeCollection TimeReceived TimeBloodCapillary blood specimen / Twvkpqj8210/16/2024 9:10 AM EDT10/16/2024 9:21 AM EDT Narrative [facility] ([facility]) - 10/16/2024 9:21 AM EDT Waived Testing in the ED is performed under the ED CLIA certificate #[id number]. Authorizing ProviderResult TypeResult StatusThomas Venessa DHALIWAL BLOOD ORDERABLESFinal ResultPerforming OrganizationAddressCity/State/ZIP CodePhone Number [facility]) [address] [place] [phone] * Lactic acid with 4 hour reflex (10/15/2024 11:05 AM EDT)ComponentValueRef RangeTest MethodAnalysis TimePerformed AtPathologist SignatureLactate1.10.5 - 2.2 mmol/L10/15/2024 11:54 AM EDTUN[facility])Specimen (Source) Anatomical Location / LateralityCollection Method / VolumeCollection Time Received TimeBloodVenous blood specimen / UnknownVenipuncture / Unknown 10/15/2024 11:05 AM EDT10/15/2024 11:07 AM EDT Narrative Authorizing ProviderResult TypeResult StatusErrolbert Ely PA-CLAB BLOOD ORDERABLESFinal ResultPerforming OrganizationAddressCity/State/ZIP CodePhone Number [facility]) [address] [place] [phone] * Transfuse RBC (10/15/2024 3:13 AM EDT) Only the most recent of2 resultswithin the time period is included. Narrative Authorizing ProviderResult TypeResult StatusJustin CrowleyBLOOD TRANSFUSION ORDERABLESFinal Result * (ABNORMAL) Hemoglobin and hematocrit, blood (10/14/2024 8:21 PM EDT) Only the most recent of2 resultswithin the time period is included. ComponentValueRef RangeTest MethodAnalysis TimePerformed AtPathologist Signature Hemoglobin7.5(L)12.0 - 15.0 g/dL10/14/2024 8:50 PM [facility]) Moaukxpojt57.7(L)36.0 - 45.0 %10/14/2024 8:50 PM [facility]) Specimen (Source)Anatomical Location / LateralityCollection Method / Volume Collection TimeReceived TimeBloodVenous blood specimen / UnknownVenipuncture / Nydkkdc1310/14/2024 8:21 PM EDT10/14/2024 8:37 PM EDT Narrative Authorizing ProviderResult TypeResult StatusThomas Venessa DHALIWAL BLOOD ORDERABLESFinal ResultPerforming OrganizationAddressCity/State/ZIP CodePhone Number [facility] ([facility]) [address] [place] [address] * Calcium, ionized (10/14/2024 1:00 PM EDT)ComponentValueRef RangeTest Method Analysis TimePerformed AtPathologist SignatureCalcium, Ion1.161.15 - 1.33 mmol/L10/14/2024 1:24 PM EDTUT RESPIRATORY THERAPYSpecimen (Source) Anatomical Location / LateralityCollection Method / VolumeCollection Time Received TimeBloodVenous blood specimen / UnknownVenipuncture / Unknown 10/14/2024 1:00 PM EDT10/14/2024 1:15 PM EDT Narrative Authorizing ProviderResult TypeResult StatusAlbert Cliffel PA-CLAB BLOOD ORDERABLESFinal ResultPerforming OrganizationAddressCity/State/ZIP CodePhone Number [facility] RESPIRATORY THERAPY [address] [place] [address], * [place] LESS THAN 1 HOUR INTRAOPERATIVE (10/13/2024 5:24 PM EDT)Anatomical Region LateralityModalityX-Ray AngiographySpecimen (Source)Anatomical Location / LateralityCollection Method / VolumeCollection TimeReceived Time10/13/2024 7:21 PM EDT Impressions 10/13/2024 7:23 PM [...] to operative report. Electronically signed: Sarwat Russell. Authorizing ProviderResult TypeResult StatusLoco Pardo MDIMG FLUOROSCOPY PROCEDURESFinal Result * NM AN ELECTIVE ENDOTRACHEAL AIRWAY (10/13/2024 3:34 PM EDT) Narrative Srinivas Collins MD - 10/13/2024 3:34 PM EDT Srinivas Collins MD 10/14/2024 2:44 AM Airway Date/Time: 10/13/2024 3:34 PM Reason: elective Airway not difficult General Information and Staff Patient location during procedure: [place] Anesthesiologist: Srinivas Collins MD Resident/COOK CHIEF/CAA: Pooja Don MD Performed: resident/COOK CHIEF/CAA and anesthesiologist Patient Condition Indications for airway [...] 1 Number of other approaches attempted: 0 Authorizing ProviderResult TypeResult StatusFish Patton MDANESTHESIA ORDERABLESFinal Result * XR clavicle left (10/13/2024 6:47 AM EDT)Anatomical RegionLateralityModality Body, ClavicleLeftComputed RadiographySpecimen (Source)Anatomical Location / LateralityCollection Method / VolumeCollection TimeReceived Time10/13/2024 7:05 AM EDT Impressions 10/13/2024 7:08 AM EDT No definite clavicular fracture on limited assessment. Dedicated CT imaging of the sternoclavicular region may be acquired for complete assessment. Electronically signed: Manish Hopkins. Narrative 10/13/2024 7:08 AM EDT XR CLAVICLE LEFT 10/13/2024 6:15 AM CLINICAL INDICATIONS: ??Preop evaluation. Fall. Shoulder pain. COMPARISON: None FINDINGS: [...] for complete assessment. Electronically signed: Manish Hopkins. Authorizing ProviderResult TypeResult StatusAnn Marie HENSON-CIMG XR PROCEDURES Final Result * Vitamin D 25 hydroxy (10/13/2024 6:18 AM EDT)ComponentValueRef RangeTest MethodAnalysis TimePerformed AtPathologist SignatureVit D, 25-Pziyqaa05.230.0 - 80.0 ng/mL10/13/2024 6:21 PM EDTUNM [facility] ([facility])Comment:>80.0 Toxicity possibleSpecimen (Source)Anatomical Location / LateralityCollection Method / VolumeCollection TimeReceived TimeBloodVenous blood specimen / UnknownVenipuncture / Cqufeou6410/13/2024 6:18 AM EDT10/13/2024 6:27 AM EDT Narrative Authorizing ProviderResult TypeResult StatusLoco DHALIWAL BLOOD ORDERABLES Final ResultPerforming OrganizationAddressCity/State/ZIP CodePhone Number [facility] ([facility]) [address] [place] [address] * MRSA/MSSA DNA Nasal (10/13/2024 4:32 AM EDT)ComponentValueRef RangeTest Method Analysis TimePerformed AtPathologist SignatureMSSA DNANegativeNegative 10/13/2024 2:09 PM [facility] ([facility])MRSA DNANegativeNegative 10/13/2024 2:09 PM [facility] ([facility])Specimen (Source)Anatomical Location / LateralityCollection Method / VolumeCollection TimeReceived Time SwabNasal structure / UnknownNon-blood Collection / Ujveerh8210/13/2024 4:32 AM EDT10/13/2024 4:46 AM EDT Narrative [facility] ([facility]) - 10/13/2024 2:09 PM EDT Testing methodology is an automated qualitative in vitro diagnostic test for the direct detection and differentiation of Staphylococcus aureus (SA) DNA and methicillin- resistant Staphylococcus aureus (MRSA) DNA from nasal swabs in patients at risk for nasal colonization. The test utilizes real-time polymerase chain reaction (PCR) for the amplification of MRSA/SA DNA and fluorogenic target-specific hybridization probes for the detection of the amplified DNA. A negative result does not preclude nasal colonization. Authorizing ProviderResult TypeResult StatusLoco DHALIWAL MICROBIOLOGY - GENERAL ORDERABLESFinal ResultPerforming OrganizationAddressCity/State/ZIP Code Phone Number [facility] ([facility]) [address] [place], [place] [phone] * CT cervical spine wo IV contrast (10/13/2024 4:26 AM EDT)Anatomical Region LateralityModalitySpine, C-spineComputed TomographySpecimen (Source)Anatomical Location / LateralityCollection Method / VolumeCollection TimeReceived Time 10/13/2024 4:47 AM EDT Impressions 10/13/2024 4:52 [...] cervical spine without contrast. [facility] use dose modulation, iterative reconstruction, and/or [...] left clavicle. Electronically signed: Loy Ghosh MD. Authorizing ProviderResult TypeResult Statusra Malik Hernandez [facility] CT PROCEDURES Final Result * CT head wo IV contrast (10/13/2024 4:26 AM EDT)Anatomical RegionLaterality ModalityHead, NeckComputed TomographySpecimen (Source)Anatomical Location / LateralityCollection Method / VolumeCollection TimeReceived Time10/13/2024 4:29 AM EDT Impressions 10/13/2024 4:47 AM [...] clear. No acute osseous abnormality. Procedure Note Lyo Ghosh MD - 10/13/2024 STUDY: CT HEAD [...] this report. Electronically signed: Loy Ghosh MD. Authorizing ProviderResult TypeResult [facility]ra Malik Hernandez [facility] CT PROCEDURES Final Result * CT abdomen pelvis wo IV contrast (10/13/2024 4:26 AM EDT)Anatomical Region LateralityModalityBody, Pelvis, AbdomenComputed TomographySpecimen (Source) Anatomical Location / LateralityCollection Method / VolumeCollection Time Received Time10/13/2024 4:47 AM EDT Impressions 10/13/2024 5:03 AM EDT * Comminuted left intertrochanteric fracture with varus angulation. Approved by:Marybel Hale10/13/2024 4:58 AM. IDhruv MD,have reviewed the image(s) and agree with the findings in this report. Electronically signed: Dhruv Carr MD. Narrative 10/13/2024 5:[address] ABDOMEN PELVIS WO IV CONTRAST HISTORY: Fall, hip fracture COMPARISON: None TECHNIQUE: CT images of the abdomen and pelvis obtained without the administration of contrast. ??Lack of IV contrast limits evaluation, especially solid organs. ??Automated exposure control was utilized. All CT scans [...] this report. Electronically signed: Dhruv Carr MD. Authorizing ProviderResult TypeResult StatusMartin Skie MDIMG CT PROCEDURESFinal Result * Prepare RBC: 1 Units (10/13/2024 1:53 AM EDT) Only the most recent of2 resultswithin the time period is included. ComponentValueRef RangeTest MethodAnalysis TimePerformed AtPathologist Signature PRODUCT [id number] BLOOD BANKUnit [id number]-*[facility] BLOOD BANKUnit ABOOUT BLOOD BANKUnit RhPOSCARLSBAD MEDICAL CENTER BLOOD BANKCrossmatch InterpretationCOMPUT BLOOD BANKDispense StatusTRCARLSBAD MEDICAL CENTER BLOOD BANKBlood Expiration [id number] BLOOD BANKProduct Blood Qvbd3096CXDY BLOOD BANKUnit Uvsfst091PTTODZ BLOOD BANK Specimen (Source)Anatomical Location / LateralityCollection Method / Volume Collection TimeReceived RmxlJrlqo20/22/2025 1:53 AM EDT Narrative Authorizing ProviderResult TypeResult StatusJustin CrowInova Women's HospitalOOD BANK PRODUCT ORDERABLESFinal ResultPerforming OrganizationAddressCity/State/ZIP CodePhone Number [facility] BLOOD BANK * (ABNORMAL) Toxicology Screen, Urine (10/13/2024 1:21 AM EDT)ComponentValueRef RangeTest MethodAnalysis TimePerformed AtPathologist SignatureBarbiturates OksfafiiXgiwlxcc54/22/2025 1:50 AM [facility] ([facility]) SeyjvxshputcwdoJizekpkoTtvhuvjt85/22/2025 1:50 AM [facility] ([facility])CimyjvawultnPcxfjggdMsuvlhdg83/22/2025 1:50 AM [facility] ([facility])WfxsolscyVeyjgsfyJbhkjxox54/22/2025 1:50 AM [facility] ([facility])SxxcxgheexSkledaacBjakftpq61/22/2025 1:50 AM [facility] ([facility])AadqtfykoylttVighfwmyYewaseqq82/22/2025 1:50 AM [facility] ([facility])OpiatesPositive(A)Xyfeowce27/22/2025 1:50 AM [facility] ([facility])FkufqhjJdydzrrpKajmtadm37/22/2025 1:50 AM [facility] ([facility])Amphetamines/XvctvvhrezcwbbsHalfpumeRqaxwpiw97/22/2025 1:50 AM [facility] ([facility])QltwwxppktjDllgomryMrtnhpdo15/22/2025 1:50 AM [facility] ([facility])Specimen (Source)Anatomical Location / Laterality Collection Method / VolumeCollection TimeReceived TimeUrineUrine specimen obtained by clean catch procedure / UnknownNon-blood Collection / Unknown 10/13/2024 1:21 AM EDT10/13/2024 1:28 AM EDT Narrative [facility] ([facility]) - 10/13/2024 1:50 AM EDT Unconfirmed screening results should only be used for medical purposes. Authorizing ProviderResult TypeResult StatusStevrandi DHALIWAL URINE ORDERABLESFinal ResultPerforming OrganizationAddressCity/State/ZIP CodePhone Number [facility] ([facility]) [address] [place] [address] * (ABNORMAL) Urinalysis with microscopic (10/13/2024 1:21 AM EDT)ComponentValue Ref RangeTest MethodAnalysis TimePerformed AtPathologist SignatureColor, Urine YellowColorless, Yellow, Light-Qmcqsp2310/13/2024 1:40 AM [facility] ([facility])Clarity, RmdcwVgfalUeapw73/22/2025 1:40 AM [facility] ([facility])Specific [place], Urine1.0191.010 - 1.8032110/13/2024 1:40 AM [facility] ([facility])pH, Urine6.05.0 - 8.0 pH10/13/2024 1:40 AM [facility] ([facility])Leukocytes, QdbsaEbbjlaydEeckgmwl42/22/2025 1:40 AM EDT [facility] ([facility])Nitrite, ZuoslHxbtzncrAxddewyh45/22/2025 1:40 AM EDT [facility] ([facility])Protein, Urine30(A)Negative mg/dL10/13/2024 1:40 AM [facility] ([facility])Glucose, UrineNormalNormal mg/dL10/13/2024 1:40 AM [facility] ([facility])Bilirubin, HfusxSdtnjlrzLvgicslt62/22/2025 1:40 AM [facility] ([facility])Ketones, UrineNegativeNegative mg/dL 10/13/2024 1:40 AM [facility] ([facility])Urobilinogen, UrineNormal Normal mg/dL10/13/2024 1:40 AM [facility] ([facility])Blood, UrineTrace (A)Zqwvsfgi77/22/2025 1:40 AM [facility] ([facility])RBC, Urine3-5(A) None Seen, 0-2 /HPF10/13/2024 1:40 AM [facility] ([facility])WBC, Urine 0-2None Seen, 0-2 /HPF10/13/2024 1:40 AM [facility] ([facility])Squamous Epithelial, UrineOccasionalNone Seen, Occasional, Few /[facility]10/13/2024 1:40 AM [facility] ([facility])Casts, UrinePresent(A)None Seen /[facility]10/13/2024 1:40 AM [facility] ([facility])Hyaline Casts, UA0-20 - 2 /[facility]10/13/2024 1:40 AM [facility] ([facility])Specimen (Source)Anatomical Location / LateralityCollection Method / VolumeCollection TimeReceived TimeUrineUrine specimen obtained by clean catch procedure / UnknownNon-blood Collection / Xzdypcu9610/13/2024 1:21 AM EDT10/13/2024 1:28 AM EDT Narrative Authorizing ProviderResult TypeResult StatusStevrandi Bennett MDLAB URINE ORDERABLESFinal ResultPerforming OrganizationAddressCity/State/ZIP CodePhone Number [facility] ([facility]) [address] [place] [address] * XR transfer of outside films (10/13/2024 1:20 AM EDT)Specimen (Source) Anatomical Location / LateralityCollection Method / VolumeCollection Time Received Time Narrative [facility] - 10/13/2024 1:20 AM EDT This order has been auto-finalized and does not contain a result. Authorizing ProviderResult TypeResult StatusStevrandi PRASADG XR PROCEDURES Final ResultPerforming OrganizationAddressCity/State/ZIP CodePhone Number [facility] * (ABNORMAL) CBC auto differential (10/13/2024 1:20 AM EDT)ComponentValueRef RangeTest MethodAnalysis TimePerformed AtPathologist SignatureAuto WBC10.57 4.00 - 10.60 10*3/uL10/13/2024 1:57 AM [facility] ([facility])RBC3.32(L) 3.80 - 5.00 10*6/uL10/13/2024 1:57 AM [facility] ([facility])Hemoglobin 10.1(L)12.0 - 15.0 g/dL10/13/2024 1:57 AM [facility] ([facility]) Nkzkxvofzz85.5(L)36.0 - 45.0 %10/13/2024 1:57 AM [facility] ([facility]) MCV91.982.0 - 98.0 fL10/13/2024 1:57 AM [facility] ([facility])MCH30.4 27.0 - 33.0 pg10/13/2024 1:57 AM [facility] ([facility])MCHC33.132.0 - 35.0 g/dL10/13/2024 1:57 AM [facility] ([facility])RDW12.911.5 - 15.0 % 10/13/2024 1:57 AM [facility] ([facility])Neutrophils %88.8(H)40.0 - 72.0 %10/13/2024 1:57 AM [facility] ([facility])Lymphocytes %4.5(L)20.0 - 45.0 %10/13/2024 1:57 AM [facility] ([facility])Monocytes %6.35.0 - 12.0 %10/13/2024 1:57 AM [facility] ([facility])Eosinophils %0.00.0 - 6.0 %10/13/2024 1:57 AM [facility] ([facility])Basophils %0.10.0 - 1.0 % 10/13/2024 1:57 AM [facility] ([facility])Neutrophils Absolute9.38(H) 1.60 - 7.60 10*3/uL10/13/2024 1:57 AM [facility] ([facility])Lymphocytes Absolute0.48(L)1.20 - 4.00 10*3/uL10/13/2024 1:57 AM [facility] ([facility])Monocytes Absolute0.670.10 - 1.00 10*3/uL10/13/2024 1:57 AM [facility] ([facility])Eosinophils Absolute0.000.00 - 0.50 10*3/uL10/13/2024 1:57 AM [facility] ([facility])Basophils Absolute0.010.00 - 0.20 10*3/uL 10/13/2024 1:57 AM [facility] ([facility])Meswjygrw217752 - 400 10*3/uL 10/13/2024 1:57 AM [facility] ([facility])nRBC %0.00 %10/13/2024 1:57 AM [facility] ([facility])Immature Granulocytes %0.30.0 - 1.0 %10/13/2024 1:57 AM [facility] ([facility])Immature Granulocytes Absolute0.030.00 - 0.20 10*3/uL10/13/2024 1:57 AM [facility] ([facility])Specimen (Source) Anatomical Location / LateralityCollection Method / VolumeCollection Time Received TimeBloodVenous blood specimen / UnknownVenipuncture / Unknown 10/13/2024 1:20 AM EDT10/13/2024 1:30 AM EDT Narrative Authorizing ProviderResult TypeResult StatusStevrandi Bennett MDLAB BLOOD ORDERABLESFinal ResultPerforming OrganizationAddressCity/State/ZIP CodePhone Number [facility] ([facility]) [address] [place] [address] * APTT (10/13/2024 1:20 AM EDT)ComponentValueRef RangeTest MethodAnalysis Time Performed AtPathologist JhxktlirkxZGS78.925.0 - 35.0 Bjtrpyp2810/13/2024 1:49 AM [facility] ([facility])Comment:Clinical significance of the APTT is questionable in the presence of heparin.Specimen (Source)Anatomical Location / LateralityCollection Method / VolumeCollection TimeReceived TimeBloodVenous blood specimen / UnknownVenipuncture / Vbxfywt1310/13/2024 1:20 AM EDT10/13/2024 1:28 AM EDT Narrative Authorizing ProviderResult TypeResult StatusStbrissa DHALIWAL BLOOD ORDERABLESFinal ResultPerforming OrganizationAddressCity/State/ZIP CodePhone Number [facility] ([facility]) [address] [place] [address] * Protime-INR (10/13/2024 1:20 AM EDT)ComponentValueRef RangeTest MethodAnalysis TimePerformed AtPathologist AvpfjwmtjKhidopx09.212.3 - 14.8 Gayakcy1210/13/2024 1:48 AM EDT[facility] ([facility])INR1.000.90 - 1.1008 1:48 AM EDT [facility] ([facility])Comment: ACCCP RECOMMENDED INR FOR WARFARIN THERAPY CONDITION ?INR PROPHYLAXIS OF VENOUS THROMBOSIS ? 2-3 (HIGH-RISK SURGERY) TREATMENT OF VENOUS THROMBOSIS ? 2-3 TREATMENT OF PULMONARY EMBOLISM ?2-3 PREVENTION OF SYSTEMIC EMBOLISM: ? 2-3 ?ACUTE MYOCARDIAL INFARCTION ?TISSUE HEART VALVES ?VALVULAR HEART DISEASE ?ATRIAL FIBRILLATION ?RECURRENT SYSTEMIC EMBOLISM MECHANICAL HEART VALVE ? 2.5-3.5 FROM: ORAL ANTICOAGULANTS. ??MECHANISM OF ACTION, CLINICAL EFFECTIVENESS, AND OPTIMAL THERAPEUTIC RANGE. ??CHEST 1995;108:231S-246S. Specimen (Source)Anatomical Location / LateralityCollection Method / Volume Collection TimeReceived TimeBloodVenous blood specimen / UnknownVenipuncture / Gutagfj8410/13/2024 1:20 AM EDT10/13/2024 1:28 AM EDT Narrative Authorizing ProviderResult TypeResult StatusStevrandi DHALIWAL BLOOD ORDERABLESFinal ResultPerforming OrganizationAddressCity/State/ZIP CodePhone Number [facility] ([facility]) [address] [place] [address] * Type and screen (10/13/2024 1:20 AM EDT)ComponentValueRef RangeTest Method Analysis TimePerformed AtPathologist SignatureABO MvedmxuvG79/22/2025 2:39 AM [facility] BLOOD BANKRh FaypGCR9510/13/2024 2:39 AM [facility] BLOOD BANKAb ScrnNEG 10/13/2024 2:39 AM [facility] BLOOD BANKSpecimen (Source)Anatomical Location / LateralityCollection Method / VolumeCollection TimeReceived TimeBloodVenous blood specimen / UnknownVenipuncture / Bebxwrv4510/13/2024 1:20 AM EDT10/13/2024 1:29 AM EDT Narrative Authorizing ProviderResult TypeResult StatusStbrissa DHALIWAL BLOOD BANK TEST ORDERABLESFinal ResultPerforming OrganizationAddressCity/State/ZIP Code Phone Number [facility]OD [facility] * Lipase (10/13/2024 1:20 AM EDT)ComponentValueRef RangeTest MethodAnalysis Time Performed AtPathologist YctswyewzSafvzp5991 - 82 U/L10/13/2024 1:55 AM [facility] ([facility])Specimen (Source)Anatomical Location / Laterality Collection Method / VolumeCollection TimeReceived TimeBloodVenous blood specimen / UnknownVenipuncture / Btfdyib0510/13/2024 1:20 AM EDT08/ 1:30 AM EDT Narrative Authorizing ProviderResult TypeResult StatusJustin DHALIWAL BLOOD ORDERABLESFinal ResultPerforming OrganizationAddressCity/State/ZIP CodePhone Number [facility]) [address] [place] [address] * Lactic acid, plasma (10/13/2024 1:20 AM EDT)ComponentValueRef RangeTest Method Analysis TimePerformed AtPathologist SignatureLactate0.80.5 - 2.2 mmol/L 10/13/2024 1:49 AM [facility] ([facility])Specimen (Source)Anatomical Location / LateralityCollection Method / VolumeCollection TimeReceived Time BloodVenous blood specimen / UnknownVenipuncture / Ntaqfit6910/13/2024 1:20 AM EDT10/13/2024 1:28 AM EDT Narrative Authorizing ProviderResult TypeResult StatusStbrissa Bennett MDLAB BLOOD ORDERABLESFinal ResultPerforming OrganizationAddressCity/State/ZIP CodePhone Number [facility]) [address] [place] [phone] * Ethanol (10/13/2024 1:20 AM EDT)ComponentValueRef RangeTest MethodAnalysis TimePerformed AtPathologist SignatureEthanol Calculated %<0.01%10/13/2024 1:49 AM [facility] ([facility])Ethanol Lvl<10<10 mg/dL10/13/2024 1:49 AM EDT [facility])Specimen (Source)Anatomical Location / Laterality Collection Method / VolumeCollection TimeReceived TimeBloodVenous blood specimen / UnknownVenipuncture / Zmkeibz8310/13/2024 1:20 AM EDT10/13/2024 1:28 AM EDT Narrative Authorizing ProviderResult TypeResult StatusJustin DHALIWAL BLOOD ORDERABLESFinal ResultPerforming OrganizationAddressCity/State/ZIP CodePhone Number [facility] ([facility]) [address] [place] [address] * (ABNORMAL) Hepatic function panel (10/13/2024 1:20 AM EDT)ComponentValueRef RangeTest MethodAnalysis TimePerformed AtPathologist SignatureTotal Bilirubin 0.50.3 - 1.0 mg/dL10/13/2024 1:55 AM [facility] ([facility])Bilirubin, Direct0.10 - 0.2 mg/dL10/13/2024 1:55 AM [facility] ([facility])Alkaline Gbbpvspbusr5001 - 104 U/L10/13/2024 1:55 AM [facility] ([facility])AST17 13 - 39 U/L10/13/2024 1:55 AM [facility] ([facility])ALT (SGPT)87 - 52 U/L10/13/2024 1:55 AM [facility] ([facility])Total Protein5.6(L)6.0 - 8.3 g/dL10/13/2024 1:55 AM [facility] ([facility])Albumin3.73.5 - 5.7 g/dL10/13/2024 1:55 AM [facility] ([facility])Specimen (Source) Anatomical Location / LateralityCollection Method / VolumeCollection Time Received TimeBloodVenous blood specimen / UnknownVenipuncture / Unknown 10/13/2024 1:20 AM EDT10/13/2024 1:30 AM EDT Narrative Authorizing ProviderResult TypeResult StatusStevrandi Bennett MDLAB BLOOD ORDERABLESFinal ResultPerforming OrganizationAddressCity/State/ZIP CodePhone Number [facility] ([facility]) [address] [place] [address] from Last 3 Months Insurance Advance Directives * Full Code (Latest Code Status on File) Date ActivatedDate InactivatedComments10/13/2024 5:05 AM10/20/2024 10:12 AM Care Teams Team MemberRelationshipSpecialtyStart DateEnd Date Nunu Briceño CNP [address] [place] [address] PCP - General10/16/24
--- NOTE | 2024-12-22 11:18 | PC.NURSE ---
Nursing Note Cardiac Stress Test Reviewed: Medication, allergies and patient history reviewed. Stress Test: [x ] Patient tolerated stress test well. [ ] Patient unable to tolerate walking on treadmill. Switched to Lexiscan stress test. [x ] No chest pain noted per patient [ ] Chest pain that resolved prior to leaving stress lab. [x ] No dyspnea noted. [ ] Dyspnea that resolved prior to leaving stress lab. [ x] Patient left stress lab asymptomatic and hemodynamically stable. [ ] Patient taken to the Emergency Room due to non-resolving symptoms following stress test. [ ] Patient achieved target heart rate. [ ] Patient unable to achieve target heart rate. [ ] Aminophylline administered as reversal agent to Lexiscan (Regadenoson). [ ] Nitro administered. Nursing Comments:Pt had no issues with lexiscan. pt ate lunch in stress room since she was wearing oxygen. Pt had no symptoms at end of test.
[2024-12-22] MEDS: REGADENOSON 0.4 MG/5 ML SYRINGE IV (11:21)
--- NOTE | 2024-12-25 14:08 | PM.STRESS ---
Stress Test Stress Test Requesting physician: ROGER VILLALOBOS Procedure: This was a Lexiscan stress test with myocardial perfusion imaging performed at the [facility] on 12/22/2024. Intravenous line was secured. The patient was attached to electrocardiographic monitoring. Baseline vital signs and ECG were obtained. Lexiscan 0.4 mg was administered intravenously followed by administration of Cardiolite. The patient then went on to obtain myocardial perfusion imaging. Resting heart rate was 80 bpm and peak heart rate was 97 bpm. Resting blood pressure was 164/90 and peak blood pressure was 175/71. General Information: Reason for Stress Test: NSTEMI. Cardiac History and Risk Factors: None reported. Resting 12 - Lead Electrocardiogram: Ectopic atrial rhythm, low voltage QRS. Stress Test: Protocol: Pharmacologic stress with Lexiscan. Exercise Capacity: Not assessed. Blood Pressure Response: Resting hypertension. Rhythm: Occasional PVCs seen. ST - Response: No ischemic ST changes seen. Patient Response: Some abdominal pain reported that resolved within 4 minutes of onset. Interpretation: 1. No evidence of ischemic ECG changes seen following infusion of Lexiscan. 2. Ectopic atrial rhythm seen throughout the test. 3. Uncontrolled systemic hypertension. 4. Myocardial perfusion images will be reported separately.
== END 2024-12-22 09:04 | disposition home or self-care (01) ==
LOC: NM 09:04
PROVIDERS: PCP Family Medicine; Visit Provider Internal Medicine Cardiovascular Disease
DX: I21.4 Non-ST elevation (NSTEMI) myocardial infarction (principal)
CPT/HCPCS: 78452; 93017; A9500; J2785